=== PATIENT | female | born 1945 | race American Indian/Alaskan Native ===

== ENCOUNTER 2020-10-28 20:28 | Inpatient (IN) | payer MEDICARE ==
[2020-10-28] MEDS ORDERED: IPRATROPIUM 0.02% NEBU 2.5 ML IH ONE (23:33)
[2020-10-28] MEDS ORDERED: methylPREDNISolone Sod Succinate 125 MG/2 ML INJ IV ONE (23:33)
[2020-10-28] MEDS ORDERED: ALBUTEROL 2.5 MG/3 ML NEBU IH ONE (23:33)
[2020-10-28] MEDS ORDERED: ASPIRIN 325 MG TAB PO ONE (23:40)
--- NOTE | 2020-10-28 23:50 | XRay Report ---
CHEST 1 VIEW 10/28/2020 10:37 PM INDICATION / CLINICAL INFORMATION: sob. COMPARISON: 10/30/2017 FINDINGS: SUPPORT DEVICES: None. HEART / MEDIASTINUM: There is mild prominence of the cardiac silhouette LUNGS / PLEURA: There is increase in interstitial markings bilaterally with venous congestion. No pne umothorax. ADDITIONAL FINDINGS: No significant additional findings. IMPRESSION: 1. There is mild diffuse bilateral interstitial disease which may be chronic or may represent mild ed donald. There is mild venous congestion. Signer Name: Ernesto Jimenez MD Signed: 10/28/2020 11:46 PM Workstation Name: [id number]
[2020-10-28 23:54] LABS: Mean Corpuscular HGB Conc 25 % (30-34); Platelet Count 504 K/mm3 (140-440); Red Blood Count 2.59 M/mm3 (3.65-5.03)
[2020-10-29 00:04] LABS: Calcium 8.2 mg/dL (8.4-10.2)
[2020-10-29 00:12] LABS: Mean Corpuscular Volume 51 fl (79-97); Red Cell Distribution Width 24.5 % (13.2-15.2)
[2020-10-29 00:14] LABS: Hematocrit 13.2 % (30.3-42.9); Hemoglobin 3.2 gm/dl (10.1-14.3)
[2020-10-29 00:16] LABS: INR 1.34 (0.87-1.13)
[2020-10-29 00:17] LABS: Partial Thromboplastin Time 27.5 Sec. (24.2-36.6)
[2020-10-29] MEDS ORDERED: SODIUM CHLORIDE 0.9% 500 ML 500 ML IV ONE (00:17)
--- NOTE | 2020-10-29 00:45 | Emergency Department Report ---
ED Shortness of Breath HPI - General Chief Complaint: Dyspnea/Respdistress Stated Complaint: COPD Time Seen by Provider: 10/28/20 23:16 Source: EMS Mode of arrival: Stretcher Limitations: No Limitations - History of Present Illness Initial Comments: 75-year-old female with a past medical history of COPD on 2 to 3 L of home oxygen with previous intubation 2 years ago, multiple sclerosis, hypertension, elevated cholesterol presents to the hospital complaining of intermittent shortness of breath progressively worsening the last several weeks. Symptoms are especially worse with minimal exertion. Patient using bronchodilators intermittently with minimal and only temporary improvement. She denies fever, cough, chest pain, Covid exposure, calf tenderness, leg edema, history of PE/DVT. Patient does not have a primary fruit peeler. As per previous medical record review patient was medicated October 2017 with acute on chronic respiratory failure, severe anemia required several units of blood and had a GI work-up that included hiatal hernia, and small gastric ulceration, and a 5 mm AVM a duodenal bulb status post APC (argon plasma coagulation) treatment. - Related Data Home Medications Medication Instructions Recorded Confirmed Last Taken Citalopram Hydrobromide 40 mg PO DAILY 03/10/17 10/27/17 10/25/17 [Citalopram HBr] Gabapentin [Neurontin] 600 mg PO Q8H 03/10/17 10/27/17 10/25/17 Acetaminophen/Diphenhydramine 1 each PO DAILY 10/27/17 10/27/17 10/25/17 [Tylenol Pm Ex-Strength Caplet] Losartan [Cozaar] 50 mg PO QDAY 10/27/17 10/27/17 10/25/17 Pravastatin [Pravachol] 40 mg PO QHS 10/27/17 10/27/17 10/25/17 QUEtiapine [SEROquel] 100 mg PO HS 10/28/17 10/28/17 Unknown Previous Rx's Medication Instructions Recorded Last Taken Type ALPRAZolam [Xanax TAB] 0.5 mg PO BID PRN #10 tablet 11/02/17 Unknown Rx Albuterol Mdi (or & Nicu Only) 2 puff IH QID PRN #1 inhalation 11/02/17 Unknown Rx [ProAir HFA Inhaler] Azithromycin [Zithromax TAB] 500 mg PO QDAY #5 tablet 11/02/17 Unknown Rx Fluticasone/Salmeterol [Advair 1 puff IH BID #1 disk.w.dev 11/02/17 Unknown Rx Diskus 250-50 mcg] Metoprolol [Lopressor TAB] 12.5 mg PO BID #60 tablet 11/02/17 Unknown Rx Pantoprazole [Protonix TAB] 40 mg PO BID #60 tablet 11/02/17 Unknown Rx Prednisone [predniSONE 10 mg 10 mg PO .TAPER #1 tab.ds.pk 11/02/17 Unknown Rx (6-Day Pack, 21 Tabs)] Allergies Allergy/AdvReac Type Severity Reaction Status Date / Time No Known Allergies Allergy Verified 12/10/14 15:18 ED Review of Systems ROS: Stated complaint: COPD Other details as noted in HPI Comment: All other systems reviewed and negative ED Past Medical Hx - Past Medical History Hx Hypertension: Yes Hx CVA: Yes Hx Heart Attack/AMI: Yes Hx Congestive Heart Failure: No Hx Diabetes: No Hx Arthritis: Yes (hands, back) Hx Headaches / Migraines: Yes Hx COPD: Yes (admitted with exacerbation) Hx HIV: No Additional medical history: Multiple sclerosis. 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 Gastric ulcer. Duodenum AVM - Social History Smoking Status: Never Smoker Substance Use Type: None - Medications Home Medications: Home Medications Medication Instructions Recorded Confirmed Last Taken Type Citalopram Hydrobromide 40 mg PO DAILY 03/10/17 10/27/17 10/25/17 History [Citalopram HBr] Gabapentin [Neurontin] 600 mg PO Q8H 03/10/17 10/27/17 10/25/17 History Acetaminophen/Diphenhydramine 1 each PO DAILY 10/27/17 10/27/17 10/25/17 History [Tylenol Pm Ex-Strength Caplet] Losartan [Cozaar] 50 mg PO QDAY 10/27/17 10/27/17 10/25/17 History Pravastatin [Pravachol] 40 mg PO QHS 10/27/17 10/27/17 10/25/17 History QUEtiapine [SEROquel] 100 mg PO HS 10/28/17 10/28/17 Unknown History ALPRAZolam [Xanax TAB] 0.5 mg PO BID PRN #10 tablet 11/02/17 Unknown Rx Albuterol Mdi (or & Nicu Only) 2 puff IH QID PRN #1 inhalation 11/02/17 Unknown Rx [ProAir HFA Inhaler] Azithromycin [Zithromax TAB] 500 mg PO QDAY #5 tablet 11/02/17 Unknown Rx Fluticasone/Salmeterol [Advair 1 puff IH BID #1 disk.w.dev 11/02/17 Unknown Rx Diskus 250-50 mcg] Metoprolol [Lopressor TAB] 12.5 mg PO BID #60 tablet 11/02/17 Unknown Rx Pantoprazole [Protonix TAB] 40 mg PO BID #60 tablet 11/02/17 Unknown Rx Prednisone [predniSONE 10 mg 10 mg PO .TAPER #1 tab.ds.pk 11/02/17 Unknown Rx (6-Day Pack, 21 Tabs)] ED Physical Exam - General Limitations: No Limitations - Other Other exam information: General: No acute distress Head: Atraumatic Eyes: normal appearance Neck: Normal appearance, no midline tenderness Chest: Tachypnea, breath sounds clear without wheezing, rhonchus, or rales. Increased respiratory rate with minimal activity CV: Tachycardia, regular rate and rhythm. Increased heart rate with minimal activity Abdomen: Soft, normal bowel sounds, nontender, nondistended, no rebound or guarding Rectal: Guaiac negative brown stool Back: Normal inspection Extremity: Normal inspection, full range of motion Neuro: Alert O x 3, no facial asymmetry, speech clear, no gross motor sensory deficit Psych: Appropriate behavior Skin: No rash ED Course Vital Signs 10/28/20 10/28/20 10/28/20 23:09 23:39 23:55 Temperature 98.2 F Pulse Rate 118 H 107 H Respiratory 24 25 H Rate Blood Pressure Blood Pressure 134/52 [Right] O2 Sat by Pulse 99 98 100 Oximetry 10/29/20 10/29/20 10/29/20 00:15 02:15 02:30 Temperature 98.7 F 97.4 F L 98.5 F Pulse Rate 94 H 102 H 104 H Respiratory 18 16 20 Rate Blood Pressure 129/50 122/51 131/70 Blood Pressure [Right] O2 Sat by Pulse 99 100 100 Oximetry 10/29/20 10/29/20 10/29/20 03:00 03:30 04:00 Temperature 98.5 F 98.5 F 97.6 F Pulse Rate 106 H 109 H 107 H Respiratory 26 H 26 H 18 Rate Blood Pressure 138/63 Blood Pressure 146/69 145/89 [Right] O2 Sat by Pulse 100 100 100 Oximetry 10/29/20 10/29/20 10/29/20 04:45 05:00 05:45 Temperature 98.2 F 97.6 F 98.2 F Pulse Rate 103 H 101 H 103 H Respiratory 24 17 24 Rate Blood Pressure 146/68 Blood Pressure 123/48 146/68 [Right] O2 Sat by Pulse 100 100 100 Oximetry 10/29/20 10/29/20 10/29/20 06:00 06:30 07:00 Temperature 98.5 F Pulse Rate 104 H 106 H 112 H Respiratory 20 22 29 H Rate Blood Pressure 137/69 152/63 175/85 Blood Pressure [Right] O2 Sat by Pulse 99 99 96 Oximetry 10/29/20 10/29/20 10/29/20 07:30 08:00 08:15 Temperature 98.5 F 99.0 F 98.5 F Pulse Rate 110 H 114 H 112 H Respiratory 20 24 19 Rate Blood Pressure 161/72 176/85 Blood Pressure 175/85 [Right] O2 Sat by Pulse 99 91 98 Oximetry 10/29/20 10/29/20 10/29/20 08:26 08:30 09:18 Temperature 98.1 F Pulse Rate 112 H 102 H 126 H Respiratory 24 18 Rate Blood Pressure 127/48 156/66 Blood Pressure [Right] O2 Sat by Pulse 100 100 95 Oximetry 10/29/20 10/29/20 10/29/20 10:56 11:46 11:50 Temperature Pulse Rate 109 H 115 H 115 H Respiratory 18 25 H 16 Rate Blood Pressure Blood Pressure 120/58 [Right] O2 Sat by Pulse 95 98 100 Oximetry 10/29/20 12:00 Temperature Pulse Rate 107 H Respiratory 12 Rate Blood Pressure 129/51 Blood Pressure [Right] O2 Sat by Pulse 99 Oximetry - Reevaluation(s) Reevaluation #1: 10/28/20 23:45 I was informed by nurse that patient developed some increased respiratory distress but still satting 100% on 3 L nasal cannula oxygen. I instructed RN to provide nebs that have been previously ordered and awaiting respiratory the rapist administration. I went to the bedside to reassess patient and she remains with obvious respiratory distress with tachypnea and wheezing. Nebulized albuterol and Atrovent provided with stat BiPAP requested from respiratory therapist 10/29/20 00:53 Patient looks much more comfortable and reports feeling much better while on BiPAP. She also completed ordered bronchodilators and received Solu-Medrol as ordered. I attempted to call daughter/caregiver Toma Joyce, with an update patient status and plan for admission and blood transfusion however, no answer at this time ED Medical Decision Making - Lab Data Result diagrams: 11/01/20 14:54 11/01/20 14:54 Lab Results 10/28/20 10/28/20 10/28/20 Range/Units 23:25 23:25 23:25 WBC 13.2 H (4.5-11.0) K/mm3 RBC 2.59 L (3.65-5.03) M/mm3 Hgb 3.2 L* (10.1-14.3) gm/dl Hct 13.2 L* (30.3-42.9) % MCV 51 L (79-97) fl MCH 12 L (28-32) pg MCHC 25 L (30-34) % RDW 24.5 H (13.2-15.2) % Plt Count 504 H (140-440) K/mm3 Seg Neutrophils % Electrical Installation Inspector PT 16.6 H (12.2-14.9) Sec. INR 1.34 H (0.87-1.13) APTT 27.5 (24.2-36.6) Sec. D-Dimer 798.02 H (0-234) ng/mlDDU Sodium 138 (137-145) mmol/L Potassium 5.2 H (3.6-5.0) mmol/L Chloride 106.1 (98-107) mmol/L Carbon Dioxide 17 L (22-30) mmol/L Anion Gap 20 mmol/L BUN 30 H (7-17) mg/dL Creatinine 1.4 H (0.6-1.2) mg/dL Estimated GFR 44 ml/min BUN/Creatinine Ratio 21 % Glucose 313 H (65-100) mg/dL Calcium 8.2 L (8.4-10.2) mg/dL Troponin T (0.00-0.029) ng/mL NT-Pro-B Natriuret Pep 1685 H (0-900) pg/mL Blood Type Crossmatch 10/28/20 10/29/20 Range/Units 23:36 00:20 WBC (4.5-11.0) K/mm3 RBC (3.65-5.03) M/mm3 Hgb (10.1-14.3) gm/dl Hct (30.3-42.9) % MCV (79-97) fl MCH (28-32) pg MCHC (30-34) % RDW (13.2-15.2) % Plt Count (140-440) K/mm3 Seg Neutrophils % PT (12.2-14.9) Sec. INR (0.87-1.13) APTT (24.2-36.6) Sec. D-Dimer (0-234) ng/mlDDU Sodium (137-145) mmol/L Potassium (3.6-5.0) mmol/L Chloride (98-107) mmol/L Carbon Dioxide (22-30) mmol/L Anion Gap mmol/L BUN (7-17) mg/dL Creatinine (0.6-1.2) mg/dL Estimated GFR ml/min BUN/Creatinine Ratio % Glucose (65-100) mg/dL Calcium (8.4-10.2) mg/dL Troponin T < 0.010 (0.00-0.029) ng/mL NT-Pro-B Natriuret Pep (0-900) pg/mL Blood Type O POSITIVE Crossmatch See Detail - EKG Data -: EKG Interpreted by Ia EKG shows normal: sinus rhythm, ST-T waves (Inferior anterolateral ST depressions) Rate: normal - EKG Data When compared to previous EKG there are: no significant change - Radiology Data Radiology results: report reviewed CHEST 1 VIEW 10/28/2020 10:37 PM INDICATION / CLINICAL INFORMATION: sob. COMPARISON: 10/30/2017 FINDINGS: SUPPORT DEVICES: None. HEART / MEDIASTINUM: There is mild prominence of the cardiac silhouette LUNGS / PLEURA: There is increase in interstitial markings bilaterally with venous congestion. No pneumothorax. ADDITIONAL FINDINGS: No significant additional findings. IMPRESSION: 1. There is mild diffuse bilateral interstitial disease which may be chronic or may represent mild edema. There is mild venous congestion. - Medical Decision Making 75-year-old female presents to the hospital progressively worsening dyspnea worse with exertion for the last several weeks. Although breath sounds were clear on auscultation here patient did develop acute respiratory distress with tachypnea and wheezing. Patient required BiPAP support for increased work of breathing. Labs reveal significant anemia with history of previous AVM requiring treatment as well as gastric ulcer. IV Protonix provided empirically. Guaiac negative brown stool obtained via rectal exam here in the ED. 2 units of PRBCs ordered in the ED patient does have elevated D-dimer and therefore CT angiogram ordered. EKG shows diffuse ST depressions which appear chronic compared to previous. Troponin negative and patient denies chest pain. Patient will require admission to the hospitalist service presence of call daughter to provide update however, no answer during my attempt GI consult with Dr. Tate ordered given patient's previous history other no signs of active GI bleed at this time Discussed with hospitalist RAMON Robins and IMCU orders placed Critical Care Time: Yes Critical care time in (mins) excluding proc time.: 40 Critical care attestation.: If time is entered above; I have spent that time in minutes in the direct care of this critically ill patient, excluding procedure time. ED Disposition Clinical Impression: Acute and chronic respiratory failure, Severe anemia, History of arteriovenous malformation (AVM), History of gastric ulcer, COPD with acute exacerbation Disposition: OP ADMIT IP TO THIS HOSP Is pt being admited?: Yes Condition: Critical Time of Disposition: 01:11 (Julienne/hospitalist Dr Pryor)
[2020-10-29] MEDS ORDERED: PANTOPRAZOLE 40 MG INJ IV ONE (00:57)
[2020-10-29] MEDS ORDERED: ALBUTEROL 8.5 GM MDI INHALATION IH PRN (01:27)
[2020-10-29] MEDS ORDERED: NON-FORMULARY EACH (Prednisone [Prednisone 10 Mg (6-Day Pack, 21 Tabs)] 10 MG Tab.Ds.Pk) PO SCH (01:30)
--- NOTE | 2020-10-29 01:37 | History and Physical Report ---
History of Present Illness Date of examination: 10/29/20 Chief complaint: Shortness of breath History of present illness: 75-year-old female with a past medical history of COPD on 3 L of home oxygen , multiple sclerosis, hypertension, elevated cholesterol was brought to the to the hospital complaining of intermittent shortness of breath progressively worsening the last several weeks. Symptoms are especially worse with minimal exertion. Patient using bronchodilators intermittently with minimal and only temporary improvement. patient was admitted October 2017 with acute on chronic r espiratory failure, severe anemia required several units of blood and had a GI work-up that included hiatal hernia, and small gastric ulceration, and a 5 mm AVM a duodenal bulb status post APC (argon plasma coagulation) treatment. Patient denied any rectal bleeding. In the emergency room patient hemoglobin is 3.1 hematocrit 13.2. Past History Past Medical History: COPD, hypertension Medications and Allergies Allergies Allergy/AdvReac Type Severity Reaction Status Date / Time No Known Allergies Allergy Verified 12/10/14 15:18 Home Medications Medication Instructions Recorded Confirmed Last Taken Type Citalopram Hydrobromide 40 mg PO DAILY 03/10/17 10/27/17 10/25/17 History [Citalopram HBr] Gabapentin [Neurontin] 600 mg PO Q8H 03/10/17 10/27/17 10/25/17 History Acetaminophen/Diphenhydramine 1 each PO DAILY 10/27/17 10/27/17 10/25/17 History [Tylenol Pm Ex-Strength Caplet] Losartan [Cozaar] 50 mg PO QDAY 10/27/17 10/27/17 10/25/17 History Pravastatin [Pravachol] 40 mg PO QHS 10/27/17 10/27/17 10/25/17 History QUEtiapine [SEROquel] 100 mg PO HS 10/28/17 10/28/17 Unknown History ALPRAZolam [Xanax TAB] 0.5 mg PO BID PRN #10 tablet 11/02/17 Unknown Rx Albuterol Mdi (or & Nicu Only) 2 puff IH QID PRN #1 inhalation 11/02/17 Unknown Rx [ProAir HFA Inhaler] Azithromycin [Zithromax TAB] 500 mg PO QDAY #5 tablet 11/02/17 Unknown Rx Fluticasone/Salmeterol [Advair 1 puff IH BID #1 disk.w.dev 11/02/17 Unknown Rx Diskus 250-50 mcg] Metoprolol [Lopressor TAB] 12.5 mg PO BID #60 tablet 11/02/17 Unknown Rx Pantoprazole [Protonix TAB] 40 mg PO BID #60 tablet 11/02/17 Unknown Rx Prednisone [predniSONE 10 mg 10 mg PO .TAPER #1 tab.ds.pk 11/02/17 Unknown Rx (6-Day Pack, 21 Tabs)] Active Meds: Active Medications Albuterol (Albuterol 8.5 Gm Mdi Inhalation) 2 puff IH QID PRN PRN Reason: Shortness Of Breath Albuterol/Ipratropium (Ipratropium/Albuterol Sulfate 3 Ml Ampul.Neb) 1 ampul IH Q6HRT AMNA Alprazolam (Alprazolam 0.5 Mg Tab) 0.5 mg PO BID PRN PRN Reason: Anxiety Azithromycin (Azithromycin 250 Mg Tab) 500 mg PO QDAY ANMA; Protocol Dextrose/Sodium Chloride (D5/0.45ns) 1,000 mls @ 100 mls/hr IV DIRECT AMNA Losartan Potassium (Losartan 50 Mg Tab) 50 mg PO QDAY AMNA Metoprolol Tartrate (Metoprolol Tartrate 25 Mg Tab) 12.5 mg PO BID AMNA Miscellaneous Medication (Citalopram Hydrobromide [Citalopram Hbr]) 40 mg PO DAILY AMNA Miscellaneous Medication (Fluticasone/Salmeterol [Advair Diskus 250-50 Mcg]) 1 puff IH BID AMNA Miscellaneous Medication (Prednisone [Prednisone 10 Mg (6-Day Pack, 21 Tabs)]) 10 mg PO .TAPER AMNA Pantoprazole Sodium (Pantoprazole 40 Mg Inj) 40 mg IV Q12H AMNA Pravastatin Sodium (Pravastatin 40 Mg Tab) 40 mg PO QHS AMNA Sodium Chloride (Sodium Chloride 0.9% 10 Ml Flush Syringe) 10 ml IV BID AMNA Sodium Chloride (Sodium Chloride 0.9% 10 Ml Flush Syringe) 10 ml IV PRN PRN PRN Reason: LINE FLUSH Review of Systems Constitutional: fatigue, weakness Cardiovascular: shortness of breath Respiratory: shortness of breath, dyspnea on exertion Exam - Constitutional Vitals: Temp Pulse Resp BP Pulse Ox 98.2 F 107 H 25 H 134/52 100 10/28/20 23:09 10/28/20 23:55 10/28/20 23:55 10/28/20 23:09 10/28/20 23:55 General appearance: Present: mild distress - EENT Eyes: Present: PERRL ENT: hearing intact, clear oral mucosa - Neck Neck: Present: supple, normal ROM - Respiratory Respiratory effort: normal Respiratory: bilateral: CTA - Cardiovascular Heart Sounds: Present: S1 & S2. Absent: rub, click - Extremities Extremities: pulses symmetrical, No edema Peripheral Pulses: within normal limits - Abdominal General gastrointestinal: Present: soft, non-tender, non-distended, normal bowel sounds Female genitourinary: Present: normal - Integumentary Integumentary: Present: clear, warm, dry HEART Score - HEART Score Troponin: Troponin T < 0.010 ng/mL (0.00-0.029) 10/28/20 23:36 Results - Labs CBC & Chem 7: 10/28/20 23:25 10/28/20 23:25 Labs: Laboratory Last Values WBC 13.2 K/mm3 (4.5-11.0) H 10/28/20 23:25 RBC 2.59 M/mm3 (3.65-5.03) L 10/28/20 23:25 Hgb 3.2 gm/dl (10.1-14.3) L* 10/28/20 23:25 Hct 13.2 % (30.3-42.9) L* 10/28/20 23:25 MCV 51 fl (79-97) L 10/28/20 23:25 MCH 12 pg (28-32) L 10/28/20 23:25 MCHC 25 % (30-34) L 10/28/20 23:25 RDW 24.5 % (13.2-15.2) H 10/28/20 23:25 Plt Count 504 K/mm3 (140-440) H 10/28/20 23:25 Seg Neutrophils % Document Reviewer 10/28/20 23:25 PT 16.6 Sec. (12.2-14.9) H 10/28/20 23:25 INR 1.34 (0.87-1.13) H 10/28/20 23:25 APTT 27.5 Sec. (24.2-36.6) 10/28/20 23:25 D-Dimer 798.02 ng/mlDDU (0-234) H 10/28/20 23:25 Sodium 138 mmol/L (137-145) 10/28/20 23:25 Potassium 5.2 mmol/L (3.6-5.0) H 10/28/20 23:25 Chloride 106.1 mmol/L (98-107) 10/28/20 23:25 Carbon Dioxide 17 mmol/L (22-30) L 10/28/20 23:25 Anion Gap 20 mmol/L 10/28/20 23:25 BUN 30 mg/dL (7-17) H 10/28/20 23:25 Creatinine 1.4 mg/dL (0.6-1.2) H 10/28/20 23:25 Estimated GFR 44 ml/min 10/28/20 23:25 BUN/Creatinine Ratio 21 % 10/28/20 23:25 Glucose 313 mg/dL (65-100) H 10/28/20 23:25 Calcium 8.2 mg/dL (8.4-10.2) L 10/28/20 23:25 Troponin T < 0.010 ng/mL (0.00-0.029) 10/28/20 23:36 NT-Pro-B Natriuret Pep 1685 pg/mL (0-900) H 10/28/20 23:25 Blood Type O POSITIVE 10/29/20 00:20 Antibody Screen Negative 10/29/20 00:20 Crossmatch See Detail 10/29/20 00:20 Microbiology: Microbiology 10/29/20 00:40 Stool Stool Occult Blood (ADELAIDE) - Final Franklin/IV: IV Catheter Type [Right INT / Saline Lock Antecubital] Assessment and Plan - Patient Problems (1) Severe anemia Current Visit: Yes Status: Acute Plan to address problem: Admit the patient to the intermediate critical care. Nothing by mouth. D5 cabrera lf-normal saline at the rate of 100 cc/h. Protonix 40 mg IV every 12 hours. Patient is getting 2 unit of packed red blood cell. Reconsult GI for further evaluation and treatment. Recheck CBC BMP in the morning. SCD for DVT prophylaxis and Protonix for GI prophylaxis (2) History of arteriovenous malformation (AVM) Current Visit: Yes Status: Acute Plan to address problem: Admit the patient to the intermediate critical care. Nothing by mouth. D5 half-normal saline at the rate of 100 cc/h. Protonix 40 mg IV every 12 hours. Patient is getting 2 unit of packed red blood cell. Reconsult GI for further evaluation and treatment. Recheck CBC BMP in the morning. SCD for DVT prophylaxis and Protonix for GI prophylaxis (3) Acute and chronic respiratory failure Current Visit: Yes Status: Acute Plan to address problem: DuoNeb nebulizer every 4 hours as needed. Patient is on BiPAP. We continue the home medication. If needed will consult pulmonary in the morning.
[2020-10-29] MEDS: PANTOPRAZOLE 40 MG INJ IV SCH ×2 (01:55→16:59)
[2020-10-29] MEDS ORDERED: D5W/0.45% NACL 1,000 ML IV SCH (02:00)
[2020-10-29] MEDS: LORazepam 2 MG/ML VIAL IV PRN (03:43)
[2020-10-29] MEDS ORDERED: LORazepam 2 MG/ML VIAL ONE (03:43)
[2020-10-29] MEDS ORDERED: diphenhydrAMINE 50 MG/ML VIAL IV ONE ×2 (03:49→20:54)
[2020-10-29] MEDS ORDERED: FUROSEMIDE 40 MG/4 ML INJ IV ONE ×2 (03:54→09:00)
[2020-10-29] MEDS ORDERED: LORazepam 2 MG/ML VIAL IV ONE ×2 (04:00→09:55)
[2020-10-29 04:20] LABS: Total Cells Counted 100
[2020-10-29 04:21] LABS: Anisocytosis 2+; Hypochromasia 3+; Platelet Estimate Consistent w Auto
[2020-10-29] MEDS ORDERED: SODIUM BICARB 8.4% 50 MEQ/50 ML SYRINGE IV ONE ×3 (04:56→06:00)
[2020-10-29] MEDS: IPRATROPIUM/ALBUTEROL SULFATE 3 ML AMPUL.NEB IH SCH ×4 (06:47→23:39)
[2020-10-29] MEDS ORDERED: ETOMIDATE 20 MG/10 ML INJ IV ONE (08:41)
[2020-10-29] MEDS ORDERED: SUCCINYLCHOLINE CHLORIDE 200 MG/10 ML INJ MDV ONE (08:41)
[2020-10-29] MEDS ORDERED: LIP THERAPY VASELINE TP PRN (09:02)
[2020-10-29] MEDS ORDERED: MINERAL OIL/PETROLATUM, WHITE OPHTH OINT 3.5 GM OU PRN (09:02)
--- NOTE | 2020-10-29 09:51 | Event Note ---
Date: 10/29/20 Called to bedside secondary to altered mental status and worsening respiratory failure despite BiPAP. Initial ABG shows normal CO2, acidosis, hyp eroxygenation. Patient intermittently tracking with eyes, unable to respond appropriately to verbal questioning, moving erratically in hospital stretcher. Decision made to intubate patient. Patient treated with etomidate 20 mg IV x1, succinylcholine 100 mg IV x1. Using glide scope, 7.5 ET tube inserted with direct cord visualization, breath sounds normal, absence of gastric breath sounds, color change noted. Chest x-ray: ET tube in place as read by me.
[2020-10-29] MEDS ORDERED: NON-FORMULARY EACH (Fluticasone/Salmeterol [Advair Diskus 250-50 Mcg] 1 EACH Blst.W.Dev) IH SCH (10:00)
--- NOTE | 2020-10-29 10:33 | XRay Report ---
CHEST 1 VIEW INDICATION: ETT placement. COMPARISON: Yesterday FINDINGS: SUPPORT DEVICES: Endotracheal tube tip just below the level of clavicles in satisfactory position. HEART: Within normal limits. LUNGS/PLEURA: Diffuse interstitial disease again noted with development of patchy right greater than left basilar airspace disease. ADDITIONAL FINDINGS: None. IMPRESSION: 1. Satisfactory positioning of the endotracheal tube. 2. Worsened lung findings. Signer Name: Jermain Del Rio MD Signed: 10/29/2020 10:29 AM Workstation Name: [id number]
[2020-10-29 11:01] LABS: ABG Base Excess -2.7 mmol/L (-2.0-3.0); ABG HCO3 22.9 mmol/L (20.0-26.0); ABG Methemoglobin 0.5 % (0.0-1.5); ABG Oxygen Saturation 93.8 % (95.0-99.0); ABG PCO2 43.7 mm Hg; ABG PH 7.336 pH Units (7.350-7.450)
[2020-10-29] MEDS: fentaNYL 100 MCG/2 ML INJ IV PRN ×2 (12:31→16:56)
[2020-10-29 12:37] LABS: Mean Corpuscular HGB Conc 28 % (30-34); Platelet Count 469 K/mm3 (140-440)
[2020-10-29 12:39] LABS: Hemoglobin 5.3 gm/dl (10.1-14.3); Mean Corpuscular Volume 59 fl (79-97)
[2020-10-29 13:13] LABS: Total Cells Counted 100
[2020-10-29] MEDS ORDERED: SODIUM CHLORIDE 0.9% 500 ML 500 ML IV NR (13:13)
[2020-10-29 13:15] LABS: Anisocytosis 3+; Hypochromasia 3+
[2020-10-29 13:16] LABS: Ovalocytes Few; Poikilocytosis 1+; Tear Drop Cells Few
[2020-10-29 13:17] LABS: Platelet Estimate Consistent w Auto; Smear for Schistocytes Rare
[2020-10-29 13:18] LABS: Schistocytes Rare
--- NOTE | 2020-10-29 13:28 | Event Note ---
Date: 10/29/20 Patient became confused following initial blood transfusion concerning for transfusion reaction. Work-up has been initiated. Chest x-ray obtained. Also respiratory rate deteriorated and patient required intubation. I also discussed with the daughter and updated her on the clinical condition at this time. Director Learning And Development consulted patient transferred to the ICU.
[2020-10-29] MEDS: INSULIN LISPRO 100 UNIT/ML SUB-Q SCH ×2 (13:55→18:49)
--- NOTE | 2020-10-29 16:29 | Hem/Onc Consultation ---
History of Present Illness - History of Present Illness heme data review consult to follow 75yo woman with h/o severe iron deficiency anemia (2018) known to have gastric AVM now eval for severe anemia Hgb 3-4 received RBC transfusion today-->had reaction-->now intubated DATA REVIEWED BELOW IMPRESSION: recent severe anemia due to iron deficiency and chronic bleeding she could also have iron malabsorption doubt heme malignancy doubt she has autoimmune hemolytic anemia transfusion-related SOB could have been TRALI or CHF RECOMMEND: steroid pulse for presumed transfusion reaction attempt more RBC transfusions for goal HCT 23 labs to include LDH and retic future lab testing may include SPEP Home Medications Medication Instructions Recorded Confirmed Last Taken Citalopram Hydrobromide 40 mg PO DAILY 03/10/17 10/27/17 10/25/17 [Citalopram HBr] Gabapentin [Neurontin] 600 mg PO Q8H 03/10/17 10/27/17 10/25/17 Acetaminophen/Diphenhydramine 1 each PO DAILY 10/27/17 10/27/17 10/25/17 [Tylenol Pm Ex-Strength Caplet] Losartan [Cozaar] 50 mg PO QDAY 10/27/17 10/27/17 10/25/17 Pravastatin [Pravachol] 40 mg PO QHS 10/27/17 10/27/17 10/25/17 QUEtiapine [SEROquel] 100 mg PO HS 10/28/17 10/28/17 Unknown Previous Rx's Medication Instructions Recorded Last Taken Type ALPRAZolam [Xanax TAB] 0.5 mg PO BID PRN #10 tablet 11/02/17 Unknown Rx Albuterol Mdi (or & Nicu Only) 2 puff IH QID PRN #1 inhalation 11/02/17 Unknown Rx [ProAir HFA Inhaler] Azithromycin [Zithromax TAB] 500 mg PO QDAY #5 tablet 11/02/17 Unknown Rx Fluticasone/Salmeterol [Advair 1 puff IH BID #1 disk.w.dev 11/02/17 Unknown Rx Diskus 250-50 mcg] Metoprolol [Lopressor TAB] 12.5 mg PO BID #60 tablet 11/02/17 Unknown Rx Pantoprazole [Protonix TAB] 40 mg PO BID #60 tablet 11/02/17 Unknown Rx Prednisone [predniSONE 10 mg 10 mg PO .TAPER #1 tab.ds.pk 11/02/17 Unknown Rx (6-Day Pack, 21 Tabs)] Laboratory Last Values WBC 11.8 K/mm3 (4.5-11.0) H 10/29/20 12:05 Hgb 5.3 gm/dl (10.1-14.3) L* 10/29/20 12:05 Hct 19.0 % (30.3-42.9) L* 10/29/20 12:05 MCV 59 fl (79-97) L 10/29/20 12:05 Plt Count 469 K/mm3 (140-440) H 10/29/20 12:05 PT 16.6 Sec. (12.2-14.9) H 10/28/20 23:25 INR 1.34 (0.87-1.13) H 10/28/20 23:25 APTT 27.5 Sec. (24.2-36.6) 10/28/20 23:25 Creatinine 1.4 mg/dL (0.6-1.2) H 10/28/20 23:25 Blood Type O POSITIVE 10/29/20 00:20 Antibody Screen Negative 10/29/20 00:20 Crossmatch See Detail 10/29/20 00:20 Pre-Trans BONI Negative 10/29/20 Unknown Pre-Trans BONI Poly Negative 10/29/20 Unknown Post-Trans Blood Type O positive 10/29/20 Unknown Post-Trans BONI Negative 10/29/20 Unknown Post-Trans BONI Poly Negative 10/29/20 Unknown Past History Past Medical History: COPD, hypertension Medications and Allergies Allergies Allergy/AdvReac Type Severity Reaction Status Date / Time No Known Allergies Allergy Verified 12/10/14 15:18 Home Medications Medication Instructions Recorded Confirmed Last Taken Type Citalopram Hydrobromide 40 mg PO DAILY 03/10/17 10/27/17 10/25/17 History [Citalopram HBr] Gabapentin [Neurontin] 600 mg PO Q8H 03/10/17 10/27/17 10/25/17 History Acetaminophen/Diphenhydramine 1 each PO DAILY 10/27/17 10/27/17 10/25/17 History [Tylenol Pm Ex-Strength Caplet] Losartan [Cozaar] 50 mg PO QDAY 10/27/17 10/27/1710/25/18 History Pravastatin [Pravachol] 40 mg PO QHS 10/27/17 10/27/17 10/25/17 History QUEtiapine [SEROquel] 100 mg PO HS 10/28/17 10/28/17 Unknown History ALPRAZolam [Xanax TAB] 0.5 mg PO BID PRN #10 tablet 11/02/17 Unknown Rx Albuterol Mdi (or & Nicu Only) 2 puff IH QID PRN #1 inhalation 11/02/17 Unknown Rx [ProAir HFA Inhaler] Azithromycin [Zithromax TAB] 500 mg PO QDAY #5 tablet 11/02/17 Unknown Rx Fluticasone/Salmeterol [Advair 1 puff IH BID #1 disk.w.dev 11/02/17 Unknown Rx Diskus 250-50 mcg] Metoprolol [Lopressor TAB] 12.5 mg PO BID #60 tablet 11/02/17 Unknown Rx Pantoprazole [Protonix TAB] 40 mg PO BID #60 tablet 11/02/17 Unknown Rx Prednisone [predniSONE 10 mg 10 mg PO .TAPER #1 tab.ds.pk 11/02/17 Unknown Rx (6-Day Pack, 21 Tabs)] Active Meds: Active Medications Albuterol (Albuterol 8.5 Gm Mdi Inhalation) 2 puff IH QID PRN PRN Reason: Shortness Of Breath Albuterol/Ipratropium (Ipratropium/Albuterol Sulfate 3 Ml Ampul.Neb) 1 ampul IH Q6HRT [facility] Last Admin: 10/29/20 14:15 Dose: Not Given Documented by: Alprazolam (Alprazolam 0.5 Mg Tab) 0.5 mg PO BID PRN PRN Reason: Anxiety Arformoterol Tartrate (Arformoterol 15 Mcg/2 Ml Nebu) 15 mcg IH Q12HRT [facility] Azithromycin (Azithromycin 250 Mg Tab) 500 mg PO QDAY [facility]; Protocol Stop: 11/02/20 10:01 Budesonide (Budesonide 0.5 Mg/2 Ml Nebu) 0.5 mg IH BIDRT [facility] Citalopram Hydrobromide (Citalopram 20 Mg Tab) 40 mg PO DAILY [facility] Fentanyl (Fentanyl 100 Mcg/2 Ml Inj) 50 mcg IV Q2H PRN PRN Reason: Pain, Mild (1-3) Last Admin: 10/29/20 12:31 Dose: 50 mcg Documented by: Hydrophilic Ointment (Lip Therapy Vaseline) 1 applic TP Q2HR PRN PRN Reason: Dry Lips Dextrose/Sodium Chloride (D5/0.45ns) 1,000 mls @ 100 mls/hr IV DIRECT [facility] Propofol (Diprivan 10 Mg/Ml) 1,000 mg in 100 mls @ 2.994 mls/hr IV TITR [facility]; Protocol Last Admin: 10/29/20 13:47 Dose: 40 mcg/kg/min, 23.952 mls/hr Documented by: Sodium Chloride (Nacl 0.9% 500 Ml) 500 mls @ 0 mls/hr IV ONCE NR Stop: 10/29/20 23:59 Insulin Human Lispro (Insulin Lispro 100 Unit/Ml) 0 unit SUB-Q Q6HR [facility]; Protocol Last Admin: 10/29/20 13:55 Dose: 6 unit Documented by: Lorazepam (Lorazepam 2 Mg/Ml Vial) 1 mg IV Q4H PRN PRN Reason: Agitation Last Admin: 10/29/20 03:43 Dose: 1 mg Documented by: Losartan Potassium (Losartan 50 Mg Tab) 50 mg PO QDAY [facility] Metoprolol Tartrate (Metoprolol Tartrate 25 Mg Tab) 12.5 mg PO BID [facility] Multi-Ingred Cream/Lotion/Oil/Oint (Mineral Oil/Petrolatum, White Ophth Oint 3.5 Gm) 1 applic OU Q4HR PRN PRN Reason: Dry Eye(s) Pantoprazole Sodium (Pantoprazole 40 Mg Inj) 40 mg IV BID@0600,1800 [facility] Last Admin: 10/29/20 01:55 Dose: 40 mg Documented by: Pravastatin Sodium (Pravastatin 40 Mg Tab) 40 mg PO QHS [facility] Sodium Chloride (Sodium Chloride 0.9% 10 Ml Flush Syringe) 10 ml IV BID [facility] Sodium Chloride (Sodium Chloride 0.9% 10 Ml Flush Syringe) 10 ml IV PRN PRN PRN Reason: LINE FLUSH Exam - Constitutional Vitals: Last Vital Signs Temp 98.5 F 10/29/20 08:15 Pulse 99 H 10/29/20 15:40 Resp 15 10/29/20 15:30 BP 109/50 10/29/20 15:40 Pulse Ox 100 10/29/20 15:40 Results - Labs lab Results: Laboratory Results - last 24 hr 10/28/20 10/28/20 10/28/20 23:25 23:25 23:25 WBC 13.2 H RBC 2.59 L Hgb 3.2 L* Hct 13.2 L* MCV 51 L MCH 12 L MCHC 25 L RDW 24.5 H Plt Count 504 H Add Manual Diff Complete Total Counted 100 Seg Neutrophils % Bariatric Program Coordinator Seg Neuts % (Manual) 96.0 H Lymphocytes % (Manual) 2.0 L Monocytes % (Manual) 2.0 Nucleated RBC % Not Reportable Seg Neutrophils # Man 12.7 H Band Neutrophils # 0.0 Lymphocytes # (Manual) 0.3 L Abs React Lymphs (Man) 0.0 Monocytes # (Manual) 0.3 Eosinophils # (Manual) 0.0 Basophils # (Manual) 0.0 Metamyelocytes # 0.0 Myelocytes # 0.0 Promyelocytes # 0.0 Blast Cells # 0.0 WBC Morphology Not Reportable Hypersegmented Neuts Not Reportable Hyposegmented Neuts Not Reportable Hypogranular Neuts Not Reportable Smudge Cells Not Reportable Toxic Granulation Not Reportable Toxic Vacuolation Not Reportable Dohle Bodies Not Reportable Pelger-Huet Anomaly Not Reportable Cindy Rods Not Reportable Platelet Estimate Consistent w auto Clumped Platelets Not Reportable Plt Clumps, EDTA Not Reportable Large Platelets Not Reportable Giant Platelets Not Reportable Platelet Satelliting Not Reportable Plt Morphology Comment Not Reportable RBC Morphology Not Reportable Dimorphic RBCs Not Reportable Polychromasia Not Reportable Hypochromasia 3+ Poikilocytosis Not Reportable Anisocytosis 2+ Microcytosis 3+ Macrocytosis Not Reportable Spherocytes Not Reportable Pappenheimer Bodies Not Reportable Sickle Cells Not Reportable Target Cells Not Reportable Tear Drop Cells Not Reportable Ovalocytes Not Reportable Helmet Cells Not Reportable [place] Bodies Not Reportable [place] Rings Not Reportable [place] Cells Not Reportable Bite Cells Not Reportable Crenated Cell Not Reportable Elliptocytes Not Reportable Acanthocytes (Spur) Not Reportable Rouleaux Not Reportable Hemoglobin C Crystals Not Reportable Schistocytes Not Reportable Malaria parasites Not Reportable Magdiel Bodies Not Reportable Hem Pathologist Commnt No PT 16.6 H INR 1.34 H APTT 27.5 D-Dimer 798.02 H ABG pH POC ABG pCO2 ABG pCO2 POC ABG pO2 ABG pO2 POC ABG HCO3 ABG HCO3 ABG O2 Saturation ABG O2 Content POC ABG Base Excess ABG Base Excess ABG Hemoglobin ABG Oxyhemoglobin ABG Carboxyhemoglobin ABG Methemoglobin ABG Sodium ABG Potassium ABG Chloride ABG Glucose Oxyhemoglobin Carboxyhemoglobin FiO2 Sodium 138 Potassium 5.2 H Chloride 106.1 Carbon Dioxide 17 L Anion Gap 20 BUN 30 H Creatinine 1.4 H Estimated GFR 44 BUN/Creatinine Ratio 21 Glucose 313 H POC Glucose Calcium 8.2 L Troponin T NT-Pro-B Natriuret Pep 1685 H Arterial Blood Glucose Arterial Blood Ionized Calcium Schistocytes Smear Blood Type Antibody Screen Crossmatch Pre-Trans BONI Pre-Trans BONI Poly Post-Trans Blood Type Post-Trans BONI Post-Trans BONI Poly 10/28/20 10/29/20 10/29/20 23:36 00:20 04:24 WBC RBC Hgb Hct MCV MCH MCHC RDW Plt Count Add Manual Diff Total Counted Seg Neutrophils % Seg Neuts % (Manual) Lymphocytes % (Manual) Monocytes % (Manual) Nucleated RBC % Seg Neutrophils # Man Band Neutrophils # Lymphocytes # (Manual) Abs React Lymphs (Man) Monocytes # (Manual) Eosinophils # (Manual) Basophils # (Manual) Metamyelocytes # Myelocytes # Promyelocytes # Blast Cells # WBC Morphology Hypersegmented Neuts Hyposegmented Neuts Hypogranular Neuts Smudge Cells Toxic Granulation Toxic Vacuolation Dohle Bodies Pelger-Huet Anomaly Cindy Rods Platelet Estimate Clumped Platelets Plt Clumps, EDTA Large Platelets Giant Platelets Platelet Satelliting Plt Morphology Comment RBC Morphology Dimorphic RBCs Polychromasia Hypochromasia Poikilocytosis Anisocytosis Microcytosis Macrocytosis Spherocytes Pappenheimer Bodies Sickle Cells Target Cells Tear Drop Cells Ovalocytes Helmet Cells [place] Bodies [place] Rings Quique Cells Bite Cells Crenated Cell Elliptocytes Acanthocytes (Spur) Rouleaux Hemoglobin C Crystals Schistocytes Malaria parasites Magdiel Bodies Hem Pathologist Commnt PT INR APTT D-Dimer ABG pH 7.208 L POC ABG pCO2 40.0 ABG pCO2 POC ABG pO2 249.6 H ABG pO2 POC ABG HCO3 15.6 ABG HCO3 ABG O2 Saturation ABG O2 Content POC ABG Base Excess -11.2 ABG Base Excess ABG Hemoglobin 5 L ABG Oxyhemoglobin 97.8 ABG Carboxyhemoglobin ABG Methemoglobin 0.4 ABG Sodium 135.1 L ABG Potassium 5.4 H ABG Chloride 108.0 H ABG Glucose 413 H Oxyhemoglobin Carboxyhemoglobin 1.5 FiO2 100 Sodium Potassium Chloride Carbon Dioxide Anion Gap BUN Creatinine Estimated GFR BUN/Creatinine Ratio Glucose POC Glucose Calcium Troponin T < 0.010 NT-Pro-B Natriuret Pep Arterial Blood Glucose 413 H Arterial Blood Ionized Calcium 4.5 L Schistocytes Smear Blood Type O POSITIVE Antibody Screen Negative Crossmatch See Detail Pre-Trans BONI Pre-Trans BONI Poly Post-Trans Blood Type Post-Trans BONI Post-Trans BONI Poly 10/29/20 10/29/20 10/29/20 08:41 10:35 12:05 WBC 11.8 H RBC 3.20 L Hgb 5.3 L* Hct 19.0 L* MCV 59 L MCH 17 L MCHC 28 L RDW 38.0 H Plt Count 469 H Add Manual Diff Complete Total Counted 100 Seg Neutrophils % Bariatric Program Coordinator Seg Neuts % (Manual) 93.0 H Lymphocytes % (Manual) 6.0 L Monocytes % (Manual) 1.0 Nucleated RBC % Not Reportable Seg Neutrophils # Man 11.0 H Band Neutrophils # 0.0 Lymphocytes # (Manual) 0.7 L Abs React Lymphs (Man) 0.0 Monocytes # (Manual) 0.1 Eosinophils # (Manual) 0.0 Basophils # (Manual) 0.0 Metamyelocytes # 0.0 Myelocytes # 0.0 Promyelocytes # 0.0 Blast Cells # 0.0 WBC Morphology Not Reportable Hypersegmented Neuts Not Reportable Hyposegmented Neuts Not Reportable Hypogranular Neuts Not Reportable Smudge Cells Not Reportable Toxic Granulation Not Reportable Toxic Vacuolation Not Reportable Dohle Bodies Not Reportable Pelger-Huet Anomaly Not Reportable Cindy Rods Not Reportable Platelet Estimate Consistent w auto Clumped Platelets Not Reportable Plt Clumps, EDTA Not Reportable Large Platelets Not Reportable Giant Platelets Not Reportable Platelet Satelliting Not Reportable Plt Morphology Comment Not Reportable RBC Morphology Not Reportable Dimorphic RBCs Not Reportable Polychromasia Rare Hypochromasia 3+ Poikilocytosis 1+ Anisocytosis 3+ Microcytosis 2+ Macrocytosis Not Reportable Spherocytes Not Reportable Pappenheimer Bodies Not Reportable Sickle Cells Not Reportable Target Cells Not Reportable Tear Drop Cells Few Ovalocytes Few Helmet Cells Not Reportable [place] Bodies Not Reportable [place] Rings Not Reportable Quique Cells Not Reportable Bite Cells Not Reportable Crenated Cell Not Reportable Elliptocytes Few Acanthocytes (Spur) Not Reportable Rouleaux Not Reportable Hemoglobin C Crystals Not Reportable Schistocytes Rare Malaria parasites Not Reportable Magdiel Bodies Not Reportable Hem Pathologist Commnt No PT INR APTT D-Dimer ABG pH 7.336 L POC ABG pCO2 ABG pCO2 43.7 POC ABG pO2 ABG pO2 68.0 L POC ABG HCO3 ABG HCO3 22.9 ABG O2 Saturation 93.8 L ABG O2 Content 7.8 POC ABG Base Excess ABG Base Excess -2.7 L ABG Hemoglobin 6.0 L ABG Oxyhemoglobin ABG Carboxyhemoglobin 2.0 ABG Methemoglobin 0.5 ABG Sodium ABG Potassium ABG Chloride ABG Glucose Oxyhemoglobin 91.4 L Carboxyhemoglobin FiO2 40 Sodium Potassium Chloride Carbon Dioxide Anion Gap BUN Creatinine Estimated GFR BUN/Creatinine Ratio Glucose POC Glucose 367 H Calcium Troponin T NT-Pro-B Natriuret Pep Arterial Blood Glucose Arterial Blood Ionized Calcium Schistocytes Smear Rare Blood Type Antibody Screen Crossmatch Pre-Trans BONI Pre-Trans BONI Poly Post-Trans Blood Type Post-Trans BONI Post-Trans BONI Poly 10/29/20 Unknown WBC RBC Hgb Hct MCV MCH MCHC RDW Plt Count Add Manual Diff Total Counted Seg Neutrophils % Seg Neuts % (Manual) Lymphocytes % (Manual) Monocytes % (Manual) Nucleated RBC % Seg Neutrophils # Man Band Neutrophils # Lymphocytes # (Manual) Abs React Lymphs (Man) Monocytes # (Manual) Eosinophils # (Manual) Basophils # (Manual) Metamyelocytes # Myelocytes # Promyelocytes # Blast Cells # WBC Morphology Hypersegmented Neuts Hyposegmented Neuts Hypogranular Neuts Smudge Cells Toxic Granulation Toxic Vacuolation Dohle Bodies Pelger-Huet Anomaly Cindy Rods Platelet Estimate Clumped Platelets Plt Clumps, EDTA Large Platelets Giant Platelets Platelet Satelliting Plt Morphology Comment RBC Morphology Dimorphic RBCs Polychromasia Hypochromasia Poikilocytosis Anisocytosis Microcytosis Macrocytosis Spherocytes Pappenheimer Bodies Sickle Cells Target Cells Tear Drop Cells Ovalocytes Helmet Cells [place] Bodies [place] Rings Quique Cells Bite Cells Crenated Cell Elliptocytes Acanthocytes (Spur) Rouleaux Hemoglobin C Crystals Schistocytes Malaria parasites Magdiel Bodies Hem Pathologist Commnt PT INR APTT D-Dimer ABG pH POC ABG pCO2 ABG pCO2 POC ABG pO2 ABG pO2 POC ABG HCO3 ABG HCO3 ABG O2 Saturation ABG O2 Content POC ABG Base Excess ABG Base Excess ABG Hemoglobin ABG Oxyhemoglobin ABG Carboxyhemoglobin ABG Methemoglobin ABG Sodium ABG Potassium ABG Chloride ABG Glucose Oxyhemoglobin Carboxyhemoglobin FiO2 Sodium Potassium Chloride Carbon Dioxide Anion Gap BUN Creatinine Estimated GFR BUN/Creatinine Ratio Glucose POC Glucose Calcium Troponin T NT-Pro-B Natriuret Pep Arterial Blood Glucose Arterial Blood Ionized Calcium Schistocytes Smear Blood Type Antibody Screen Crossmatch Pre-Trans BONI Negative Pre-Trans BONI Poly Negative Post-Trans Blood Type O positive Post-Trans BONI Negative Post-Trans BONI Poly Negative
[2020-10-29] MEDS: methylPREDNISolone Sod Succinate 125 MG/2 ML INJ IV SCH (16:57)
[2020-10-29] MEDS: BUDESONIDE 0.5 MG/2 ML NEBU IH SCH ×2 (19:56→23:38)
[2020-10-29] MEDS: ARFORMOTEROL 15 MCG/2 ML NEBU IH SCH ×2 (19:56→23:38)
--- NOTE | 2020-10-29 20:29 | XRay Report ---
ABDOMEN 1 VIEW INDICATION / CLINICAL INFORMATION: verify NGT placement. COMPARISON: One view of the chest from earlier today. CT abdomen and pelvis with contrast from 11/01/2017. FINDINGS: TUBES / LINES: An NG tube terminates over the gastric body. The ET tube is unchanged. A right arm PIC C terminates over the distal SVC. BOWEL GAS PATTERN: No significant abnormality. FREE AIR / EXTRALUMINAL GAS: None seen. ADDITIONAL FINDINGS: No significant additional findings/other significant interval changes. IMPRESSION: Satisfactory positioning of the NG tube. No acute abnormality. Signer Name: Дмитрий Valderrama MD Signed: 10/29/2020 8:25 PM Workstation Name: [id number]
[2020-10-29] MEDS: METOPROLOL TARTRATE 25 MG TAB PO SCH (22:10)
[2020-10-29] MEDS: PRAVASTATIN 40 MG TAB PO SCH (22:12)
[2020-10-30] MEDS: LORazepam 2 MG/ML VIAL IV PRN (01:05)
[2020-10-30] MEDS: INSULIN LISPRO 100 UNIT/ML SUB-Q SCH ×3 (05:22→18:19)
[2020-10-30] MEDS: PANTOPRAZOLE 40 MG INJ IV SCH ×2 (05:24→18:19)
[2020-10-30 06:35] LABS: Hematocrit 20.2 % (30.3-42.9); Mean Corpuscular HGB Conc 29 % (30-34); Platelet Count 414 K/mm3 (140-440); Red Blood Count 3.23 M/mm3 (3.65-5.03)
[2020-10-30 06:47] LABS: Hemoglobin 5.8 gm/dl (10.1-14.3); Mean Corpuscular Volume 63 fl (79-97)
[2020-10-30 06:50] LABS: BUN/Creatinine Ratio 28; Blood Urea Nitrogen 28 mg/dL (7-17); Calcium 8.1 mg/dL (8.4-10.2); Hemolysis Index 0
--- NOTE | 2020-10-30 07:24 | Hem/Onc Progress Note ---
Subjective Interval history: heme data review 75yo woman with h/o severe iron deficiency anemia (2018) known to have gastric AVM PMH COPD, home oxygen mention of multiple sclerosis now eval for SOB, found to have severe anemia Hgb 3-4 received RBC transfusion yesterday-->had reaction with worse SOB-->intubated CXR bilateral opacities including pacthy infiltrates has been improving on vent while receiving lasix and solumedrol received rbc overnight (her 3rd total unit) DATA REVIEWED BELOW IMPRESSION: recent severe anemia due to iron deficiency and chronic bleeding doubt heme malignancy doubt she has autoimmune hemolytic anemia transfusion-related SOB could have been TRALI or CHF tolerated 3rd unit RBC overnight, while on vent RECOMMEND: CXR to see her pulm edema status, consider more lasix continue steroid pulse for presumed transfusion reaction and COPD attempt more RBC transfusions for goal HCT 23 future lab testing may include SPEP Active Medications Azithromycin (Azithromycin 250 Mg Tab) 500 mg PO QDAY [facility]; Protocol Stop: 11/02/20 10:01 Fentanyl (Fentanyl 100 Mcg/2 Ml Inj) 50 mcg IV Q2H PRN PRN Reason: Pain, Mild (1-3) Last Admin: 10/29/20 16:56 Dose: 50 mcg Documented by: Losartan Potassium (Losartan 50 Mg Tab) 50 mg PO QDAY [facility] Methylprednisolone Sodium Succinate (Methylprednisolone Sod Succinate 125 Mg/2 Ml Inj) 80 mg IV Q8HR [facility] Metoprolol Tartrate (Metoprolol Tartrate 25 Mg Tab) 12.5 mg PO BID [facility] Last Admin: 10/29/20 22:10 Dose: 12.5 mg Documented by: Laboratory Last Values WBC 12.9 K/mm3 (4.5-11.0) H 10/30/20 06:13 Hgb 5.8 gm/dl (10.1-14.3) L* 10/30/20 06:13 Hct 20.2 % (30.3-42.9) L 10/30/20 06:13 MCV 63 fl (79-97) L 10/30/20 06:13 Plt Count 414 K/mm3 (140-440) 10/30/20 06:13 FiO2 40 10/30/20 04:36 Lactate Dehydrogenase 355 units/L (91-180) H 10/29/20 18:37 Antibody Screen Negative 10/29/20 00:20 Direct Antiglob Test Negative 10/29/20 18:37 BONI, Poly Interpret Negative 10/29/20 18:37 Crossmatch See Detail 10/29/20 00:20 Pre-Trans BONI Negative 10/29/20 Unknown Pre-Trans BONI Poly Negative 10/29/20 Unknown Post-Trans Blood Type O positive 10/29/20 Unknown Post-Trans BONI Negative 10/29/20 Unknown Post-Trans BONI Poly Negative 10/29/20 Unknown Objective - Constitutional Vitals: Last Vital Signs Temp 99.2 F 10/30/20 04:18 Pulse 97 H 10/30/20 06:31 Resp 18 10/30/20 06:31 BP 128/63 10/30/20 06:31 Pulse Ox 100 10/30/20 06:31 - Labs Lab Results: Laboratory Results - last 24 hr 10/29/20 10/29/20 10/29/20 00:20 08:41 10:35 WBC RBC Hgb Hct MCV MCH MCHC RDW Plt Count Add Manual Diff Total Counted Seg Neutrophils % Seg Neuts % (Manual) Lymphocytes % (Manual) Monocytes % (Manual) Nucleated RBC % Seg Neutrophils # Man Band Neutrophils # Lymphocytes # (Manual) Abs React Lymphs (Man) Monocytes # (Manual) Eosinophils # (Manual) Basophils # (Manual) Metamyelocytes # Myelocytes # Promyelocytes # Blast Cells # WBC Morphology Hypersegmented Neuts Hyposegmented Neuts Hypogranular Neuts Smudge Cells Toxic Granulation Toxic Vacuolation Dohle Bodies Pelger-Huet Anomaly Cindy Rods Platelet Estimate Clumped Platelets Plt Clumps, EDTA Large Platelets Giant Platelets Platelet Satelliting Plt Morphology Comment RBC Morphology Dimorphic RBCs Polychromasia Hypochromasia Poikilocytosis Anisocytosis Microcytosis Macrocytosis Spherocytes Pappenheimer Bodies Sickle Cells Target Cells Tear Drop Cells Ovalocytes Helmet Cells [place] Bodies [place] Rings [place] Cells Bite Cells Crenated Cell Elliptocytes Acanthocytes (Spur) Rouleaux Hemoglobin C Crystals Schistocytes Malaria parasites Percent Retic Magdiel Bodies Hem Pathologist Commnt ABG pH 7.336 L POC ABG pCO2 ABG pCO2 43.7 POC ABG pO2 ABG pO2 68.0 L POC ABG HCO3 ABG HCO3 22.9 ABG O2 Saturation 93.8 L ABG O2 Content 7.8 POC ABG Base Excess ABG Base Excess -2.7 L ABG Hemoglobin 6.0 L ABG Oxyhemoglobin ABG Carboxyhemoglobin 2.0 ABG Methemoglobin 0.5 ABG Sodium ABG Potassium ABG Chloride ABG Glucose Oxyhemoglobin 91.4 L Carboxyhemoglobin FiO2 40 Sodium Potassium Chloride Carbon Dioxide Anion Gap BUN Creatinine Estimated GFR BUN/Creatinine Ratio Glucose POC Glucose 367 H Calcium Lactate Dehydrogenase Arterial Blood Glucose Arterial Blood Ionized Calcium Schistocytes Smear Blood Type O POSITIVE Antibody Screen Negative Direct Antiglob Test BONI, Poly Interpret Crossmatch See Detail Pre-Trans BONI Pre-Trans BONI Poly Post-Trans Blood Type Post-Trans BONI Post-Trans BONI Poly 10/29/20 10/29/20 10/29/20 12:05 12:12 17:50 WBC 11.8 H RBC 3.20 L Hgb 5.3 L* Hct 19.0 L* MCV 59 L MCH 17 L MCHC 28 L RDW 38.0 H Plt Count 469 H Add Manual Diff Complete Total Counted 100 Seg Neutrophils % Com Writer Seg Neuts % (Manual) 93.0 H Lymphocytes % (Manual) 6.0 L Monocytes % (Manual) 1.0 Nucleated RBC % Not Reportable Seg Neutrophils # Man 11.0 H Band Neutrophils # 0.0 Lymphocytes # (Manual) 0.7 L Abs React Lymphs (Man) 0.0 Monocytes # (Manual) 0.1 Eosinophils # (Manual) 0.0 Basophils # (Manual) 0.0 Metamyelocytes # 0.0 Myelocytes # 0.0 Promyelocytes # 0.0 Blast Cells # 0.0 WBC Morphology Not Reportable Hypersegmented Neuts Not Reportable Hyposegmented Neuts Not Reportable Hypogranular Neuts Not Reportable Smudge Cells Not Reportable Toxic Granulation Not Reportable Toxic Vacuolation Not Reportable Dohle Bodies Not Reportable Pelger-Huet Anomaly Not Reportable Cindy Rods Not Reportable Platelet Estimate Consistent w auto Clumped Platelets Not Reportable Plt Clumps, EDTA Not Reportable Large Platelets Not Reportable Giant Platelets Not Reportable Platelet Satelliting Not Reportable Plt Morphology Comment Not Reportable RBC Morphology Not Reportable Dimorphic RBCs Not Reportable Polychromasia Rare Hypochromasia 3+ Poikilocytosis 1+ Anisocytosis 3+ Microcytosis 2+ Macrocytosis Not Reportable Spherocytes Not Reportable Pappenheimer Bodies Not Reportable Sickle Cells Not Reportable Target Cells Not Reportable Tear Drop Cells Few Ovalocytes Few Helmet Cells Not Reportable [place] Bodies Not Reportable [place] Rings Not Reportable [place] Cells Not Reportable Bite Cells Not Reportable Crenated Cell Not Reportable Elliptocytes Few Acanthocytes (Spur) Not Reportable Rouleaux Not Reportable Hemoglobin C Crystals Not Reportable Schistocytes Rare Malaria parasites Not Reportable Percent Retic Magdiel Bodies Not Reportable Hem Pathologist Commnt No ABG pH POC ABG pCO2 ABG pCO2 POC ABG pO2 ABG pO2 POC ABG HCO3 ABG HCO3 ABG O2 Saturation ABG O2 Content POC ABG Base Excess ABG Base Excess ABG Hemoglobin ABG Oxyhemoglobin ABG Carboxyhemoglobin ABG Methemoglobin ABG Sodium ABG Potassium ABG Chloride ABG Glucose Oxyhemoglobin Carboxyhemoglobin FiO2 Sodium Potassium Chloride Carbon Dioxide Anion Gap BUN Creatinine Estimated GFR BUN/Creatinine Ratio Glucose POC Glucose 313 H 201 H Calcium Lactate Dehydrogenase Arterial Blood Glucose Arterial Blood Ionized Calcium Schistocytes Smear Rare Blood Type Antibody Screen Direct Antiglob Test BONI, Poly Interpret Crossmatch Pre-Trans BONI Pre-Trans BONI Poly Post-Trans Blood Type Post-Trans BONI Post-Trans BONI Poly 10/29/20 10/29/20 10/29/20 18:37 18:37 18:37 WBC RBC Hgb Hct MCV MCH MCHC RDW Plt Count Add Manual Diff Total Counted Seg Neutrophils % Seg Neuts % (Manual) Lymphocytes % (Manual) Monocytes % (Manual) Nucleated RBC % Seg Neutrophils # Man Band Neutrophils # Lymphocytes # (Manual) Abs React Lymphs (Man) Monocytes # (Manual) Eosinophils # (Manual) Basophils # (Manual) Metamyelocytes # Myelocytes # Promyelocytes # Blast Cells # WBC Morphology Hypersegmented Neuts Hyposegmented Neuts Hypogranular Neuts Smudge Cells Toxic Granulation Toxic Vacuolation Dohle Bodies Pelger-Huet Anomaly Cindy Rods Platelet Estimate Clumped Platelets Plt Clumps, EDTA Large Platelets Giant Platelets Platelet Satelliting Plt Morphology Comment RBC Morphology Dimorphic RBCs Polychromasia Hypochromasia Poikilocytosis Anisocytosis Microcytosis Macrocytosis Spherocytes Pappenheimer Bodies Sickle Cells Target Cells Tear Drop Cells Ovalocytes Helmet Cells [place] Bodies [place] Rings [place] Cells Bite Cells Crenated Cell Elliptocytes Acanthocytes (Spur) Rouleaux Hemoglobin C Crystals Schistocytes Malaria parasites Percent Retic 1.80 Magdiel Bodies Hem Pathologist Commnt ABG pH POC ABG pCO2 ABG pCO2 POC ABG pO2 ABG pO2 POC ABG HCO3 ABG HCO3 ABG O2 Saturation ABG O2 Content POC ABG Base Excess ABG Base Excess ABG Hemoglobin ABG Oxyhemoglobin ABG Carboxyhemoglobin ABG Methemoglobin ABG Sodium ABG Potassium ABG Chloride ABG Glucose Oxyhemoglobin Carboxyhemoglobin FiO2 Sodium Potassium Chloride Carbon Dioxide Anion Gap BUN Creatinine Estimated GFR BUN/Creatinine Ratio Glucose POC Glucose Calcium Lactate Dehydrogenase 355 H Arterial Blood Glucose Arterial Blood Ionized Calcium Schistocytes Smear Blood Type Antibody Screen Direct Antiglob Test Negative BONI, Poly Interpret Negative Crossmatch Pre-Trans BONI Pre-Trans BONI Poly Post-Trans Blood Type Post-Trans BONI Post-Trans BONI Poly 10/29/20 10/29/20 10/30/20 23:14 Unknown 04:36 WBC RBC Hgb Hct MCV MCH MCHC RDW Plt Count Add Manual Diff Total Counted Seg Neutrophils % Seg Neuts % (Manual) Lymphocytes % (Manual) Monocytes % (Manual) Nucleated RBC % Seg Neutrophils # Man Band Neutrophils # Lymphocytes # (Manual) Abs React Lymphs (Man) Monocytes # (Manual) Eosinophils # (Manual) Basophils # (Manual) Metamyelocytes # Myelocytes # Promyelocytes # Blast Cells # WBC Morphology Hypersegmented Neuts Hyposegmented Neuts Hypogranular Neuts Smudge Cells Toxic Granulation Toxic Vacuolation Dohle Bodies Pelger-Huet Anomaly Cindy Rods Platelet Estimate Clumped Platelets Plt Clumps, EDTA Large Platelets Giant Platelets Platelet Satelliting Plt Morphology Comment RBC Morphology Dimorphic RBCs Polychromasia Hypochromasia Poikilocytosis Anisocytosis Microcytosis Macrocytosis Spherocytes Pappenheimer Bodies Sickle Cells Target Cells Tear Drop Cells Ovalocytes Helmet Cells [place] Bodies [place] Rings [place] Cells Bite Cells Crenated Cell Elliptocytes Acanthocytes (Spur) Rouleaux Hemoglobin C Crystals Schistocytes Malaria parasites Percent Retic Magdiel Bodies Hem Pathologist Commnt ABG pH 7.408 POC ABG pCO2 39.9 ABG pCO2 POC ABG pO2 68.2 L ABG pO2 POC ABG HCO3 24.6 ABG HCO3 ABG O2 Saturation ABG O2 Content POC ABG Base Excess 0 ABG Base Excess ABG Hemoglobin 6.6 L ABG Oxyhemoglobin 91.9 L ABG Carboxyhemoglobin ABG Methemoglobin 0.1 ABG Sodium 138.9 ABG Potassium 5.1 H ABG Chloride 109.0 H ABG Glucose 236 H Oxyhemoglobin Carboxyhemoglobin 1.4 FiO2 40 Sodium Potassium Chloride Carbon Dioxide Anion Gap BUN Creatinine Estimated GFR BUN/Creatinine Ratio Glucose POC Glucose 188 H Calcium Lactate Dehydrogenase Arterial Blood Glucose 236 H Arterial Blood Ionized Calcium 4.4 L Schistocytes Smear Blood Type Antibody Screen Direct Antiglob Test BONI, Poly Interpret Crossmatch Pre-Trans BONI Negative Pre-Trans BONI Poly Negative Post-Trans Blood Type O positive Post-Trans BONI Negative Post-Trans BONI Poly Negative 10/30/20 10/30/20 10/30/20 05:13 06:13 06:13 WBC 12.9 H RBC 3.23 L Hgb 5.8 L* Hct 20.2 L MCV 63 L MCH 18 L MCHC 29 L RDW 40.0 H Plt Count 414 Add Manual Diff Total Counted Seg Neutrophils % Seg Neuts % (Manual) Lymphocytes % (Manual) Monocytes % (Manual) Nucleated RBC % Seg Neutrophils # Man Band Neutrophils # Lymphocytes # (Manual) Abs React Lymphs (Man) Monocytes # (Manual) Eosinophils # (Manual) Basophils # (Manual) Metamyelocytes # Myelocytes # Promyelocytes # Blast Cells # WBC Morphology Hypersegmented Neuts Hyposegmented Neuts Hypogranular Neuts Smudge Cells Toxic Granulation Toxic Vacuolation Dohle Bodies Pelger-Huet Anomaly Cindy Rods Platelet Estimate Clumped Platelets Plt Clumps, EDTA Large Platelets Giant Platelets Platelet Satelliting Plt Morphology Comment RBC Morphology Dimorphic RBCs Polychromasia Hypochromasia Poikilocytosis Anisocytosis Microcytosis Macrocytosis Spherocytes Pappenheimer Bodies Sickle Cells Target Cells Tear Drop Cells Ovalocytes Helmet Cells [place] Bodies [place] Rings Quique Cells Bite Cells Crenated Cell Elliptocytes Acanthocytes (Spur) Rouleaux Hemoglobin C Crystals Schistocytes Malaria parasites Percent Retic Magdiel Bodies Hem Pathologist Commnt ABG pH POC ABG pCO2 ABG pCO2 POC ABG pO2 ABG pO2 POC ABG HCO3 ABG HCO3 ABG O2 Saturation ABG O2 Content POC ABG Base Excess ABG Base Excess ABG Hemoglobin ABG Oxyhemoglobin ABG Carboxyhemoglobin ABG Methemoglobin ABG Sodium ABG Potassium ABG Chloride ABG Glucose Oxyhemoglobin Carboxyhemoglobin FiO2 Sodium 143 Potassium 5.2 H Chloride 108.4 H Carbon Dioxide 28 D Anion Gap 12 BUN 28 H Creatinine 1.0 Estimated GFR > 60 BUN/Creatinine Ratio 28 Glucose 244 H POC Glucose 221 H Calcium 8.1 L Lactate Dehydrogenase Arterial Blood Glucose Arterial Blood Ionized Calcium Schistocytes Smear Blood Type Antibody Screen Direct Antiglob Test BONI, Poly Interpret Crossmatch Pre-Trans BONI Pre-Trans BONI Poly Post-Trans Blood Type Post-Trans BONI Post-Trans BONI Poly Medications & Allergies - Medications Allergies/Adverse Reactions: Allergies No Known Allergies Allergy (Verified 12/10/14 15:18) Home Medications: Home Medications Medication Instructions Recorded Confirmed Last Taken Type Citalopram Hydrobromide 40 mg PO DAILY 03/10/17 10/27/17 10/25/17 History [Citalopram HBr] Gabapentin [Neurontin] 600 mg PO Q8H 03/10/17 10/27/17 10/25/17 History Acetaminophen/Diphenhydramine 1 each PO DAILY 10/27/17 10/27/17 10/25/17 History [Tylenol Pm Ex-Strength Caplet] Losartan [Cozaar] 50 mg PO QDAY 10/27/17 10/27/17 10/25/17 History Pravastatin [Pravachol] 40 mg PO QHS 10/27/17 10/27/17 10/25/17 History QUEtiapine [SEROquel] 100 mg PO HS 10/28/17 10/28/17 Unknown History ALPRAZolam [Xanax TAB] 0.5 mg PO BID PRN #10 tablet 11/02/17 Unknown Rx Albuterol Mdi (or & Nicu Only) 2 puff IH QID PRN #1 inhalation 11/02/17 Unknown Rx [ProAir HFA Inhaler] Azithromycin [Zithromax TAB] 500 mg PO QDAY #5 tablet 11/02/17 Unknown Rx Fluticasone/Salmeterol [Advair 1 puff IH BID #1 disk.w.dev 11/02/17 Unknown Rx Diskus 250-50 mcg] Metoprolol [Lopressor TAB] 12.5 mg PO BID #60 tablet 11/02/17 Unknown Rx Pantoprazole [Protonix TAB] 40 mg PO BID #60 tablet 11/02/17 Unknown Rx Prednisone [predniSONE 10 mg 10 mg PO .TAPER #1 tab.ds.pk 11/02/17 Unknown Rx (6-Day Pack, 21 Tabs)] Active Medications: Generic Name Dose Route Start Last Admin Trade Name Freq PRN Reason Stop Dose Admin Albuterol 2 puff 10/29/20 01:27 Albuterol 8.5 Gm Mdi Inhalation IH QID PRN Shortness Of Breath Albuterol/Ipratropium 1 ampul 10/30/20 08:00 Ipratropium/Albuterol Sulfate 3 Ml Ampul.Neb IH TIDRT [facility] Alprazolam 0.5 mg 10/29/20 01:27 Alprazolam 0.5 Mg Tab PO BID PRN Anxiety Arformoterol Tartrate 15 mcg 10/29/20 08:00 10/29/20 23:38 Arformoterol 15 Mcg/2 Ml Nebu IH Not Given Q12HRT [facility] Azithromycin 500 mg 10/29/20 10:00 Azithromycin 250 Mg Tab PO 11/02/20 10:01 QDAY [facility] Protocol Budesonide 0.5 mg 10/29/20 08:00 10/29/20 23:38 Budesonide 0.5 Mg/2 Ml Nebu IH Not Given BIDRT [facility] Citalopram Hydrobromide 40 mg 10/29/20 10:00 Citalopram 20 Mg Tab PO DAILY [facility] Diphenhydramine HCl 25 mg 10/30/20 08:00 Diphenhydramine 50 Mg/Ml Vial IV 10/30/20 08:01 ONCE ONE Fentanyl 50 mcg 10/29/20 11:55 10/29/20 16:56 Fentanyl 100 Mcg/2 Ml Inj IV 50 mcg Q2H PRN Administration Pain, Mild (1-3) Hydrophilic Ointment 1 applic 10/29/20 09:02 Lip Therapy Vaseline TP Q2HR PRN Dry Lips Dextrose/Sodium Chloride 1,000 mls @ 100 mls/hr 10/29/20 02:00 D5/0.45ns IV DIRECT [facility] Propofol 1,000 mg in 100 mls @ 2.994 mls/hr 10/29/20 09:15 10/30/20 05:18 Diprivan 10 Mg/Ml IV 40 mcg/kg/min TITR [facility] 23.952 mls/hr Administration Protocol 5 MCG/KG/MIN Insulin Human Lispro 0 unit 10/29/20 13:00 10/30/20 05:22 Insulin Lispro 100 Unit/Ml SUB-Q 3 unit Q6HR [facility] Administration Protocol Lorazepam 1 mg 10/29/20 03:40 10/30/20 01:05 Lorazepam 2 Mg/Ml Vial IV 1 mg Q4H PRN Administration Agitation Losartan Potassium 50 mg 10/29/20 10:00 Losartan 50 Mg Tab PO QDAY [facility] Methylprednisolone Sodium Succinate 80 mg 10/30/20 08:00 Methylprednisolone Sod Succinate 125 Mg/2 Ml Inj IV Q8HR [facility] Metoprolol Tartrate 12.5 mg 10/29/20 10:00 10/29/20 22:10 Metoprolol Tartrate 25 Mg Tab PO 12.5 mg BID [facility] Administration Multi-Ingred Cream/Lotion/Oil/Oint 1 applic 10/29/20 09:02 Mineral Oil/Petrolatum, White Ophth Oint 3.5 Gm OU Q4HR PRN Dry Eye(s) Pantoprazole Sodium 40 mg 10/29/20 02:00 10/30/20 05:24 Pantoprazole 40 Mg Inj IV 40 mg BID@0600,1800 [facility] Administration Pravastatin Sodium 40 mg 10/29/20 22:00 10/29/20 22:12 Pravastatin 40 Mg Tab PO 40 mg QHS [facility] Administration Sodium Chloride 10 ml 10/29/20 10:00 Sodium Chloride 0.9% 10 Ml Flush Syringe IV BID [facility] Sodium Chloride 10 ml 10/29/20 01:28 Sodium Chloride 0.9% 10 Ml Flush Syringe IV PRN PRN LINE FLUSH
[2020-10-30] MEDS ORDERED: diphenhydrAMINE 50 MG/ML VIAL IV ONE (08:00)
[2020-10-30 08:28] LABS: Total Cells Counted 100
[2020-10-30 08:30] LABS: Anisocytosis 3+; Hypochromasia 2+; Poikilocytosis 1+
[2020-10-30 08:31] LABS: Ovalocytes Few; Schistocytes Rare; Tear Drop Cells Few
[2020-10-30 08:32] LABS: Platelet Estimate Consistent w Auto
--- NOTE | 2020-10-30 08:38 | XRay Report ---
CHEST - 1 VIEW INDICATION: sob COMPARISON: Yesterday FINDINGS: SUPPORT DEVICES: New right-sided PICC line with tip in the high right atrium and new NG tube project ing below the [id number]. Stable satisfactory positioning of the endotracheal tube. HEART: Stable cardiomediastinal silhouette. LUNGS/PLEURA: Mild diffuse interstitial prominence again seen with streaky bibasilar airspace diseas e and central peribronchial thickening. ADDITIONAL FINDINGS: None. IMPRESSION: Support devices as above. Otherwise largely unchanged exam. Signer Name: Jermain Del Rio MD Signed: 10/30/2020 8:34 AM Workstation Name: [id number]
[2020-10-30] MEDS: BUDESONIDE 0.5 MG/2 ML NEBU IH SCH ×2 (08:52→20:14)
[2020-10-30] MEDS: ARFORMOTEROL 15 MCG/2 ML NEBU IH SCH ×2 (08:52→20:14)
[2020-10-30] MEDS: IPRATROPIUM/ALBUTEROL SULFATE 3 ML AMPUL.NEB IH SCH ×3 (08:52→20:15)
[2020-10-30] MEDS: CITALOPRAM 20 MG TAB PO SCH (09:33)
[2020-10-30] MEDS: AZITHROMYCIN 250 MG TAB PO SCH (09:33)
[2020-10-30] MEDS: METOPROLOL TARTRATE 25 MG TAB PO SCH ×2 (09:34→22:41)
[2020-10-30] MEDS: LOSARTAN 50 MG TAB PO SCH (09:34)
[2020-10-30] MEDS: methylPREDNISolone Sod Succinate 125 MG/2 ML INJ IV SCH ×3 (09:35→22:34)
[2020-10-30] MEDS ORDERED: SODIUM CHLORIDE 0.9% 500 ML 500 ML IV NR (10:00)
[2020-10-30] MEDS ORDERED: FUROSEMIDE 40 MG/4 ML INJ IV ONE (11:00)
--- NOTE | 2020-10-30 11:39 | Consultation ---
History of Present Illness Consult date: 10/30/20 Requesting physician: SALVADOR GOODSON Reason for consult: other (altered mental state and hypoxemia requiring ventilation) History of present illness: 75 y/o female with prior history of anemia, admitted to the ICU after having an acute epidsode of altered mental status in the ED during blood transfusion. Patient was intubated and then transferred to the ICU. Upon arrival on yesterday she would arouse but was sedated. CXR showed would could be pulmonary edema from volume overload. Patient was given IV lasix which she tolerated and is now on 40% and 12 of PEEP with good sats. CXR is stable. She is getting more blood. GI is consulted to see her as well as this has been a chronic issue for patient. She was last seen in this hospital with similar presentation in 2018. Past History Past Medical History: COPD, hypertension Medications and Allergies Allergies Allergy/AdvReac Type Severity Reaction Status Date / Time No Known Allergies Allergy Verified 12/10/14 15:18 Home Medications Medication Instructions Recorded Confirmed Last Taken Type Citalopram Hydrobromide 40 mg PO DAILY 03/10/17 10/27/17 10/25/17 History [Citalopram HBr] Gabapentin [Neurontin] 600 mg PO Q8H 03/10/17 10/27/17 10/25/17 History Acetaminophen/Diphenhydramine 1 each PO DAILY 10/27/17 10/27/17 10/25/17 History [Tylenol Pm Ex-Strength Caplet] Losartan [Cozaar] 50 mg PO QDAY 10/27/17 10/27/17 10/25/17 History Pravastatin [Pravachol] 40 mg PO QHS 10/27/17 10/27/17 10/25/17 History QUEtiapine [SEROquel] 100 mg PO HS 10/28/17 10/28/17 Unknown History ALPRAZolam [Xanax TAB] 0.5 mg PO BID PRN #10 tablet 11/02/17 Unknown Rx Albuterol Mdi (or & Nicu Only) 2 puff IH QID PRN #1 inhalation 11/02/17 Unknown Rx [ProAir HFA Inhaler] Azithromycin [Zithromax TAB] 500 mg PO QDAY #5 tablet 11/02/17 Unknown Rx Fluticasone/Salmeterol [Advair 1 puff IH BID #1 disk.w.dev 11/02/17 Unknown Rx Diskus 250-50 mcg] Metoprolol [Lopressor TAB] 12.5 mg PO BID #60 tablet 11/02/17 Unknown Rx Pantoprazole [Protonix TAB] 40 mg PO BID #60 tablet 11/02/17 Unknown Rx Prednisone [predniSONE 10 mg 10 mg PO .TAPER #1 tab.ds.pk 11/02/17 Unknown Rx (6-Day Pack, 21 Tabs)] Active Meds: Active Medications Albuterol (Albuterol 8.5 Gm Mdi Inhalation) 2 puff IH QID PRN PRN Reason: Shortness Of Breath Albuterol/Ipratropium (Ipratropium/Albuterol Sulfate 3 Ml Ampul.Neb) 1 ampul IH TIDRT [facility] Last Admin: 10/30/20 08:52 Dose: 1 ampul Documented by: Alprazolam (Alprazolam 0.5 Mg Tab) 0.5 mg PO BID PRN PRN Reason: Anxiety Arformoterol Tartrate (Arformoterol 15 Mcg/2 Ml Nebu) 15 mcg IH Q12HRT [facility] Last Admin: 10/30/20 08:52 Dose: 15 mcg Documented by: Azithromycin (Azithromycin 250 Mg Tab) 500 mg PO QDAY [facility]; Protocol Stop: 11/02/20 10:01 Last Admin: 10/30/20 09:33 Dose: 500 mg Documented by: Budesonide (Budesonide 0.5 Mg/2 Ml Nebu) 0.5 mg IH BIDRT [facility] Last Admin: 10/30/20 08:52 Dose: 0.5 mg Documented by: Citalopram Hydrobromide (Citalopram 20 Mg Tab) 40 mg PO DAILY [facility] Last Admin: 10/30/20 09:33 Dose: 40 mg Documented by: Fentanyl (Fentanyl 100 Mcg/2 Ml Inj) 50 mcg IV Q2H PRN PRN Reason: Pain, Mild (1-3) Last Admin: 10/29/20 16:56 Dose: 50 mcg Documented by: Hydrophilic Ointment (Lip Therapy Vaseline) 1 applic TP Q2HR PRN PRN Reason: Dry Lips Propofol (Diprivan 10 Mg/Ml) 1,000 mg in 100 mls @ 2.994 mls/hr IV TITR [facility]; Protocol Last Admin: 10/30/20 09:33 Dose: 40 mcg/kg/min, 23.952 mls/hr Documented by: Sodium Chloride (Nacl 0.9% 500 Ml) 500 mls @ 0 mls/hr IV ONCE NR Stop: 10/30/20 23:59 Insulin Human Lispro (Insulin Lispro 100 Unit/Ml) 0 unit SUB-Q Q6HR [facility]; Protocol Last Admin: 10/30/20 05:22 Dose: 3 unit Documented by: Lorazepam (Lorazepam 2 Mg/Ml Vial) 1 mg IV Q4H PRN PRN Reason: Agitation Last Admin: 10/30/20 01:05 Dose: 1 mg Documented by: Losartan Potassium (Losartan 50 Mg Tab) 50 mg PO QDAY [facility] Methylprednisolone Sodium Succinate (Methylprednisolone Sod Succinate 125 Mg/2 Ml Inj) 80 mg IV Q8HR [facility] Last Admin: 10/30/20 09:35 Dose: 80 mg Documented by: Metoprolol Tartrate (Metoprolol Tartrate 25 Mg Tab) 12.5 mg PO BID [facility] Last Admin: 10/30/20 09:34 Dose: 12.5 mg Documented by: Multi-Ingred Cream/Lotion/Oil/Oint (Mineral Oil/Petrolatum, White Ophth Oint 3.5 Gm) 1 applic OU Q4HR PRN PRN Reason: Dry Eye(s) Pantoprazole Sodium (Pantoprazole 40 Mg Inj) 40 mg IV BID@0600,1800 [facility] Last Admin: 10/30/20 05:24 Dose: 40 mg Documented by: Pravastatin Sodium (Pravastatin 40 Mg Tab) 40 mg PO QHS [facility] Last Admin: 10/29/20 22:12 Dose: 40 mg Documented by: Sodium Chloride (Sodium Chloride 0.9% 10 Ml Flush Syringe) 10 ml IV BID [facility] Last Admin: 10/30/20 09:36 Dose: 10 ml Documented by: Sodium Chloride (Sodium Chloride 0.9% 10 Ml Flush Syringe) 10 ml IV PRN PRN PRN Reason: LINE FLUSH Review of Systems ROS unobtainable: due to endotracheal tube, due to mental status Physical Examination Vital signs: Vital Signs Temp Pulse Resp BP Pulse Ox 98.2 F 118 H 24 134/52 99 10/28/20 23:09 10/28/20 23:09 10/28/20 23:09 10/28/20 23:09 10/28/20 23:09 General appearance: no acute distress, appears uncomfortable, other (will wake up with light stimulation) Eyes: non-icteric ENT: other (orally intubated and sedated) Neck: supple Effort: mildly labored Ascultation: Bilateral: diminished breath sounds Percussion: Right: not dull Cardiovascular: regular rate and rhythm Gastrointestinal: normoactive bowel sounds, soft, non-tender Extremities: no edema, pink and warm, pulses normal Results - Laboratory Findings CBC and BMP: 10/30/20 06:13 10/30/20 06:13 ABG ABG pH 7.408 (7.320-7.450) 10/30/20 04:36 POC ABG pCO2 39.9 mmHg (32.0-48.0) 10/30/20 04:36 ABG pCO2 43.7 mm Hg 10/29/20 10:35 POC ABG pO2 68.2 mmHg (83-108) L 10/30/20 04:36 ABG pO2 68.0 mm Hg (80.0-90.0) L 10/29/20 10:35 POC ABG HCO3 24.6 10/30/20 04:36 ABG O2 Saturation 93.8 % (95.0-99.0) L 10/29/20 10:35 PT/INR, D-dimer PT 16.6 Sec. (12.2-14.9) H 10/28/20 23:25 INR 1.34 (0.87-1.13) H 10/28/20 23:25 D-Dimer 798.02 ng/mlDDU (0-234) H 10/28/20 23:25 Abnormal lab findings: Abnormal Labs 10/28/20 10/28/20 10/28/20 23:25 23:25 23:25 WBC 13.2 H RBC 2.59 L Hgb 3.2 L* Hct 13.2 L* MCV 51 L MCH 12 L MCHC 25 L RDW 24.5 H Plt Count 504 H Seg Neuts % (Manual) 96.0 H Lymphocytes % (Manual) 2.0 L Nucleated RBC % Seg Neutrophils # Man 12.7 H Lymphocytes # (Manual) 0.3 L PT 16.6 H INR 1.34 H D-Dimer 798.02 H ABG pH POC ABG pO2 ABG pO2 ABG O2 Saturation ABG Base Excess ABG Hemoglobin ABG Oxyhemoglobin ABG Sodium ABG Potassium ABG Chloride ABG Glucose Oxyhemoglobin Potassium 5.2 H Chloride Carbon Dioxide 17 L BUN 30 H Creatinine 1.4 H Glucose 313 H POC Glucose Calcium 8.2 L Lactate Dehydrogenase NT-Pro-B Natriuret Pep 1685 H Arterial Blood Glucose Arterial Blood Ionized Calcium Crossmatch 10/29/20 10/29/20 10/29/20 00:20 04:24 08:41 WBC RBC Hgb Hct MCV MCH MCHC RDW Plt Count Seg Neuts % (Manual) Lymphocytes % (Manual) Nucleated RBC % Seg Neutrophils # Man Lymphocytes # (Manual) PT INR D-Dimer ABG pH 7.208 L POC ABG pO2 249.6 H ABG pO2 ABG O2 Saturation ABG Base Excess ABG Hemoglobin 5 L ABG Oxyhemoglobin ABG Sodium 135.1 L ABG Potassium 5.4 H ABG Chloride 108.0 H ABG Glucose 413 H Oxyhemoglobin Potassium Chloride Carbon Dioxide BUN Creatinine Glucose POC Glucose 367 H Calcium Lactate Dehydrogenase NT-Pro-B Natriuret Pep Arterial Blood Glucose 413 H Arterial Blood Ionized Calcium 4.5 L Crossmatch See Detail 10/29/20 10/29/20 10/29/20 10:35 12:05 12:12 WBC 11.8 H RBC 3.20 L Hgb 5.3 L* Hct 19.0 L* MCV 59 L MCH 17 L MCHC 28 L RDW 38.0 H Plt Count 469 H Seg Neuts % (Manual) 93.0 H Lymphocytes % (Manual) 6.0 L Nucleated RBC % Seg Neutrophils # Man 11.0 H Lymphocytes # (Manual) 0.7 L PT INR D-Dimer ABG pH 7.336 L POC ABG pO2 ABG pO2 68.0 L ABG O2 Saturation 93.8 L ABG Base Excess -2.7 L ABG Hemoglobin 6.0 L ABG Oxyhemoglobin ABG Sodium ABG Potassium ABG Chloride ABG Glucose Oxyhemoglobin 91.4 L Potassium Chloride Carbon Dioxide BUN Creatinine Glucose POC Glucose 313 H Calcium Lactate Dehydrogenase NT-Pro-B Natriuret Pep Arterial Blood Glucose Arterial Blood Ionized Calcium Crossmatch 10/29/20 10/29/20 10/29/20 17:50 18:37 23:14 WBC RBC Hgb Hct MCV MCH MCHC RDW Plt Count Seg Neuts % (Manual) Lymphocytes % (Manual) Nucleated RBC % Seg Neutrophils # Man Lymphocytes # (Manual) PT INR D-Dimer ABG pH POC ABG pO2 ABG pO2 ABG O2 Saturation ABG Base Excess ABG Hemoglobin ABG Oxyhemoglobin ABG Sodium ABG Potassium ABG Chloride ABG Glucose Oxyhemoglobin Potassium Chloride Carbon Dioxide BUN Creatinine Glucose POC Glucose 201 H 188 H Calcium Lactate Dehydrogenase 355 H NT-Pro-B Natriuret Pep Arterial Blood Glucose Arterial Blood Ionized Calcium Crossmatch 10/30/20 10/30/20 10/30/20 04:36 05:13 06:13 WBC 12.9 H RBC 3.23 L Hgb 5.8 L* Hct 20.2 L MCV 63 L MCH 18 L MCHC 29 L RDW 40.0 H Plt Count Seg Neuts % (Manual) 92.0 H Lymphocytes % (Manual) 3.0 L Nucleated RBC % 2.0 H Seg Neutrophils # Man 11.9 H Lymphocytes # (Manual) 0.4 L PT INR D-Dimer ABG pH POC ABG pO2 68.2 L ABG pO2 ABG O2 Saturation ABG Base Excess ABG Hemoglobin 6.6 L ABG Oxyhemoglobin 91.9 L ABG Sodium ABG Potassium 5.1 H ABG Chloride 109.0 H ABG Glucose 236 H Oxyhemoglobin Potassium Chloride Carbon Dioxide BUN Creatinine Glucose POC Glucose 221 H Calcium Lactate Dehydrogenase NT-Pro-B Natriuret Pep Arterial Blood Glucose 236 H Arterial Blood Ionized Calcium 4.4 L Crossmatch 10/30/20 06:13 WBC RBC Hgb Hct MCV MCH MCHC RDW Plt Count Seg Neuts % (Manual) Lymphocytes % (Manual) Nucleated RBC % Seg Neutrophils # Man Lymphocytes # (Manual) PT INR D-Dimer ABG pH POC ABG pO2 ABG pO2 ABG O2 Saturation ABG Base Excess ABG Hemoglobin ABG Oxyhemoglobin ABG Sodium ABG Potassium ABG Chloride ABG Glucose Oxyhemoglobin Potassium 5.2 H Chloride 108.4 H Carbon Dioxide BUN 28 H Creatinine Glucose 244 H POC Glucose Calcium 8.1 L Lactate Dehydrogenase NT-Pro-B Natriuret Pep Arterial Blood Glucose Arterial Blood Ionized Calcium Crossmatch - Diagnostic Findings Chest x-ray: image reviewed Assessment and Plan 75 y/o female with acute respiratory failure secondary to altered mental state and hypoxemia, TRALI vs TACO (Transfusion Associated Circulatory Overload). 1. Pulm- Given need for more blood, will hold on weaning for today and allow patient to be transfused up to goal. Continue sedation with diprovan. will need triglycerides checked either tomorrow or Wednesday if still intubated. Continue high peeps for now, and will start to wean once H/H at Goal. Appreciate Heme evaluation. Lasix given again today and will likely give again tonight. 2. GI-Ir Def anemia, chronic in nature and prior history of Gastric AVM's. No evidence of active bleeding at present. Await GI evaluation. Agree with GI evaluation. Ok with feeding patient unless GI has plans to scope in the near future. 3. Heme-anemia. Appreciate recs. Steroids started by heme so defer them on duration. Patient is not actively in COPD exacerbation. 4. Hold on DVT prophylaxis with drugs, SCDs only. Guarded prognosis CCT 31 minutes
--- NOTE | 2020-10-30 16:01 | Progress Note ---
Assessment and Plan Critical care statement The high probability OF a clinically significant sudden or life-threatening deterioration of the cardiorespiratory system and endocrine system required my full and direct attention, intervention and postoperative management. The aggregate critical care time was 40 minutes. The time is in addition to time spent performing reported procedures but includes the followin: Data review and interpretation 2: Patient assessment and monitoring of vital signs 3: Documentation 4:: Medication orders and management - Patient Problems (1) Acute respiratory failure with hypoxia Current Visit: Yes Status: Acute Plan to address problem: Patient was intubated yesterday Continue duo nebs Continue steroids Continue IV antibiotics (2) Symptomatic anemia Current Visit: Yes Status: Acute Plan to address problem: Patient being transfused Keep the hematocrit above 24 Hematology consult appreciated (3) COPD with acute exacerbation Current Visit: Yes Status: Acute Plan to address problem: Continue duo nebs IV antibiotics and steroids (4) GI bleed Current Visit: No Status: Chronic Qualifiers: GI bleed type/associated pathology: unspecified gastrointestinal hemorrhage type Qualified Code(s): K92.2 - Gastrointestinal hemorrhage, unspecified Plan to address problem: Patient has history of gastric AVMs for which she did not go for follow-up Transfuse as necessary to keep the hemoglobin above 8 and hematocrit about 24 (5) Metabolic encephalopathy Current Visit: No Status: Acute Plan to address problem: Severe confusion Possibly secondary to hypoxia and transfusion reaction Hematology consult appreciated (6) HTN (hypertension) Current Visit: No Status: Chronic Qualifiers: Hypertension type: essential hypertension Qualified Code(s): I10 - Essential (primary) hypertension Plan to address problem: Continue antihypertensives (7) Hyperlipidemia Current Visit: Yes Status: Chronic Qualifiers: Hyperlipidemia type: mixed hyperlipidemia Qualified Code(s): E78.2 - Mixed hyperlipidemia Plan to address problem: Continue statins (8) Transfusion reaction Current Visit: Yes Status: Acute Qualifiers: Encounter type: initial encounter Qualified Code(s): T80.92XA - Unspecified transfusion reaction, initial encounter Plan to address problem: Hematology consult requested (9) Depression Current Visit: Yes Status: Chronic Qualifiers: Depression Type: dysthymia Qualified Code(s): F34.1 - Dysthymic disorder Plan to address problem: Patient on citalopram 40 mg daily (10) Generalized anxiety disorder Current Visit: Yes Status: Acute Plan to address problem: Patient on anxiolytics from home (11) DVT prophylaxis Current Visit: No Status: Acute Plan to address problem: On SCDs and GI prophylaxis because of the low hemoglobin and tendency to bleed Subjective Date of service: 10/30/20 Principal diagnosis: Severe anemia, transfusion reaction Interval history: 75-year-old female with a past medical history of COPD on 3 L of home oxygen , multiple sclerosis, hypertension, elevated cholesterol was brought to the to the hospital complaining of intermittent shortness of breath progressively worsening the last several weeks. Symptoms are especially worse with minimal exertion. Patient using bronchodilators intermittently with minimal and only temporary improvement. patient was admitted October 2017 with acute on chronic respiratory failure, severe anemia required several units of blood and had a GI work-up that included hiatal hernia, and small gastric ulceration, and a 5 mm AVM a duodenal bulb status post APC (argon plasma coagulation) treatment. Patient denied any rectal bleeding. In the emergency room patient hemoglobin is 3.1 hematocrit 13.2. Day #2 10/30/2020 Patient was transfused multiple units Patient went into respiratory distress and altered mental status and was intubated yesterday. 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 Patient intubated Possible transfusion reaction Low hemoglobin and hematocrit possibly secondary to AVMs by history Patient has history of gastric AVMs No melanotic stools Objective - Exam Narrative Exam: Patient intubated - Constitutional Vitals: Vital Signs - 12hr 10/30/20 10/30/20 10/30/20 04:15 04:18 04:24 Temperature 99.2 F Pulse Rate 97 H 97 H Pulse Rate [ Throughout] Respiratory 20 Rate Respiratory Rate [ Throughout] Blood Pressure 124/61 124/61 O2 Sat by Pulse 100 100 Oximetry 10/30/20 10/30/20 10/30/20 04:31 04:41 04:51 Temperature Pulse Rate 98 H 97 H 97 H Pulse Rate [ Throughout] Respiratory 18 19 20 Rate Respiratory Rate [ Throughout] Blood Pressure 126/53 126/53 126/53 O2 Sat by Pulse 100 100 100 Oximetry 10/30/20 10/30/20 10/30/20 05:01 05:11 05:21 Temperature Pulse Rate 102 H 104 H 100 H Pulse Rate [ Throughout] Respiratory 23 15 19 Rate Respiratory Rate [ Throughout] Blood Pressure 134/65 134/65 134/65 O2 Sat by Pulse 100 100 Oximetry 10/30/20 10/30/20 10/30/20 05:30 05:41 05:51 Temperature Pulse Rate 98 H 96 H 95 H Pulse Rate [ Throughout] Respiratory 17 14 22 Rate Respiratory Rate [ Throughout] Blood Pressure 141/66 141/66 141/66 O2 Sat by Pulse 99 100 100 Oximetry 10/30/20 10/30/20 10/30/20 06:01 06:11 06:21 Temperature Pulse Rate 97 H 96 H 96 H Pulse Rate [ Throughout] Respiratory 18 19 21 Rate Respiratory Rate [ Throughout] Blood Pressure 133/64 133/64 133/64 O2 Sat by Pulse 100 100 100 Oximetry 10/30/20 10/30/20 10/30/20 06:31 06:45 07:01 Temperature Pulse Rate 97 H 96 H 97 H Pulse Rate [ Throughout] Respiratory 18 18 15 Rate Respiratory Rate [ Throughout] Blood Pressure 128/63 128/63 132/54 O2 Sat by Pulse 100 100 100 Oximetry 10/30/20 10/30/20 10/30/20 07:15 07:30 07:41 Temperature Pulse Rate 96 H 96 H 96 H Pulse Rate [ Throughout] Respiratory 22 24 16 Rate Respiratory Rate [ Throughout] Blood Pressure 132/54 133/63 133/63 O2 Sat by Pulse 100 99 100 Oximetry 10/30/20 10/30/20 10/30/20 07:51 08:00 08:01 Temperature Pulse Rate 99 H 97 H 102 H Pulse Rate [ Throughout] Respiratory 16 15 Rate Respiratory Rate [ Throughout] Blood Pressure 133/63 133/63 O2 Sat by Pulse 100 100 100 Oximetry 10/30/20 10/30/20 10/30/20 08:11 08:21 08:30 Temperature Pulse Rate 97 H 98 H 97 H Pulse Rate [ Throughout] Respiratory 27 H 19 19 Rate Respiratory Rate [ Throughout] Blood Pressure 131/60 131/60 134/65 O2 Sat by Pulse 100 100 100 Oximetry 10/30/20 10/30/20 10/30/20 08:41 08:47 08:51 Temperature Pulse Rate 96 H 95 H 96 H Pulse Rate [ Throughout] Respiratory 22 16 Rate Respiratory Rate [ Throughout] Blood Pressure 134/65 134/65 134/65 O2 Sat by Pulse 100 100 99 Oximetry 10/30/20 10/30/20 10/30/20 09:01 09:11 09:15 Temperature Pulse Rate 95 H 97 H Pulse Rate [ 85 Throughout] Respiratory 17 12 Rate Respiratory 18 Rate [ Throughout] Blood Pressure 128/63 128/63 O2 Sat by Pulse 98 97 Oximetry 10/30/20 10/30/20 10/30/20 09:21 09:31 09:34 Temperature Pulse Rate 99 H 100 H 99 H Pulse Rate [ Throughout] Respiratory 12 16 Rate Respiratory Rate [ Throughout] Blood Pressure 128/63 155/104 155/104 O2 Sat by Pulse 97 96 Oximetry 10/30/20 10/30/20 10/30/20 09:41 09:51 10:01 Temperature Pulse Rate 97 H 98 H 100 H Pulse Rate [ Throughout] Respiratory 19 15 11 L Rate Respiratory Rate [ Throughout] Blood Pressure 155/104 155/104 141/63 O2 Sat by Pulse 98 99 98 Oximetry 10/30/20 10/30/20 10/30/20 10:11 10:21 10:30 Temperature Pulse Rate 95 H 93 H 90 Pulse Rate [ Throughout] Respiratory 23 21 20 Rate Respiratory Rate [ Throughout] Blood Pressure 141/63 141/63 125/59 O2 Sat by Pulse 99 99 96 Oximetry 10/30/20 10/30/20 10/30/20 10:41 10:46 10:51 Temperature 97.6 F Pulse Rate 90 89 89 Pulse Rate [ Throughout] Respiratory 22 16 21 Rate Respiratory Rate [ Throughout] Blood Pressure 125/59 125/59 125/59 O2 Sat by Pulse 99 99 99 Oximetry 10/30/20 10/30/20 10/30/20 11:00 11:11 11:21 Temperature Pulse Rate 89 89 89 Pulse Rate [ Throughout] Respiratory 17 17 16 Rate Respiratory Rate [ Throughout] Blood Pressure 130/68 125/59 126/64 O2 Sat by Pulse 96 99 99 Oximetry 10/30/20 10/30/20 11:31 12:27 Temperature Pulse Rate 87 90 Pulse Rate [ Throughout] Respiratory 20 Rate Respiratory Rate [ Throughout] Blood Pressure 122/59 132/71 O2 Sat by Pulse 97 98 Oximetry General appearance: Present: mild distress, well-nourished - EENT Eyes: PERRL, EOM intact ENT: hearing intact, clear oral mucosa Ears: bilateral: normal - Neck Neck: supple, normal ROM - Respiratory Respiratory effort: normal Respiratory: bilateral: CTA - Breasts Breasts: normal - Cardiovascular Heart rate: 78 Rhythm: regular Heart Sounds: Present: S1 & S2. Absent: gallop, rub Extremities: pulses intact, No edema, normal color, Full ROM - Gastrointestinal General gastrointestinal: Present: soft, non-tender, non-distended, normal bowel sounds - Genitourinary Female genitourinary: normal - Integumentary Integumentary: clear, warm, dry - Musculoskeletal Musculoskeletal: 1, strength equal bilaterally - Neurologic Neurologic: moves all extremities - Psychiatric Psychiatric: other (Patient intubated) - Allied health notes Allied health notes reviewed: nursing, case management - Labs CBC & Chem 7: 11/03/20 07:11 11/03/20 07:11 Labs: Abnormal lab results 10/29/20 10/29/20 10/29/20 Range/Units 00:20 12:12 17:50 WBC (4.5-11.0) K/mm3 RBC (3.65-5.03) M/mm3 Hgb (10.1-14.3) gm/dl Hct (30.3-42.9) % MCV (79-97) fl MCH (28-32) pg MCHC (30-34) % RDW (13.2-15.2) % Seg Neuts % (Manual) (40.0-70.0) % Lymphocytes % (Manual) (13.4-35.0) % Nucleated RBC % (0.0-0.9) % Seg Neutrophils # Man (1.8-7.7) K/mm3 Lymphocytes # (Manual) (1.2-5.4) K/mm3 POC ABG pO2 (83-108) mmHg ABG Hemoglobin (12.0-17.5) ABG Oxyhemoglobin (94-98) ABG Potassium (3.40-4.50) mmol/L ABG Chloride (98-107) mmol/L ABG Glucose (65-95) mg/dL Potassium (3.6-5.0) mmol/L Chloride (98-107) mmol/L BUN (7-17) mg/dL Glucose (65-100) mg/dL POC Glucose 313 H 201 H (70-105) mg/dL Calcium (8.4-10.2) mg/dL Lactate Dehydrogenase (91-180) units/L Arterial Blood Glucose (65-95) mg/dL Arterial Blood Ionized Calcium (4.6-5.3) mg/dL Crossmatch See Detail 10/29/20 10/29/2010/30/21 Range/Units 18:37 23:14 04:36 WBC (4.5-11.0) K/mm3 RBC (3.65-5.03) M/mm3 Hgb (10.1-14.3) gm/dl Hct (30.3-42.9) % MCV (79-97) fl MCH (28-32) pg MCHC (30-34) % RDW (13.2-15.2) % Seg Neuts % (Manual) (40.0-70.0) % Lymphocytes % (Manual) (13.4-35.0) % Nucleated RBC % (0.0-0.9) % Seg Neutrophils # Man (1.8-7.7) K/mm3 Lymphocytes # (Manual) (1.2-5.4) K/mm3 POC ABG pO2 68.2 L (83-108) mmHg ABG Hemoglobin 6.6 L (12.0-17.5) ABG Oxyhemoglobin 91.9 L (94-98) ABG Potassium 5.1 H (3.40-4.50) mmol/L ABG Chloride 109.0 H (98-107) mmol/L ABG Glucose 236 H (65-95) mg/dL Potassium (3.6-5.0) mmol/L Chloride (98-107) mmol/L BUN (7-17) mg/dL Glucose (65-100) mg/dL POC Glucose 188 H (70-105) mg/dL Calcium (8.4-10.2) mg/dL Lactate Dehydrogenase 355 H (91-180) units/L Arterial Blood Glucose 236 H (65-95) mg/dL Arterial Blood Ionized Calcium 4.4 L (4.6-5.3) mg/dL Crossmatch 10/30/20 10/30/20 10/30/20 Range/Units 05:13 06:13 06:13 WBC 12.9 H (4.5-11.0) K/mm3 RBC 3.23 L (3.65-5.03) M/mm3 Hgb 5.8 L* (10.1-14.3) gm/dl Hct 20.2 L (30.3-42.9) % MCV 63 L (79-97) fl MCH 18 L (28-32) pg MCHC 29 L (30-34) % RDW 40.0 H (13.2-15.2) % Seg Neuts % (Manual) 92.0 H (40.0-70.0) % Lymphocytes % (Manual) 3.0 L (13.4-35.0) % Nucleated RBC % 2.0 H (0.0-0.9) % Seg Neutrophils # Man 11.9 H (1.8-7.7) K/mm3 Lymphocytes # (Manual) 0.4 L (1.2-5.4) K/mm3 POC ABG pO2 (83-108) mmHg ABG Hemoglobin (12.0-17.5) ABG Oxyhemoglobin (94-98) ABG Potassium (3.40-4.50) mmol/L ABG Chloride (98-107) mmol/L ABG Glucose (65-95) mg/dL Potassium 5.2 H (3.6-5.0) mmol/L Chloride 108.4 H (98-107) mmol/L BUN 28 H (7-17) mg/dL Glucose 244 H (65-100) mg/dL POC Glucose 221 H (70-105) mg/dL Calcium 8.1 L (8.4-10.2) mg/dL Lactate Dehydrogenase (91-180) units/L Arterial Blood Glucose (65-95) mg/dL Arterial Blood Ionized Calcium (4.6-5.3) mg/dL Crossmatch HEART Score - HEART Score Troponin: Troponin T < 0.010 ng/mL (0.00-0.029) 10/28/20 23:36
--- NOTE | 2020-10-30 17:09 | Consultation ---
History of Present Illness - Reason for Consult Consult date: 10/30/20 Anemia Requesting physician: SALVADOR GOODSON - History of Present Illness Ms. Mcclellan is a 75-year-old woman with multiple medical problems including multiple sclerosis and COPD on home oxygen who was admitted with progressive dyspnea on exertion and shortness of breath. On admission, she was found to have a hemoglobin of 3.5. While getting transfused, she developed acute exacerbation of shortness of breath and was intubated. Currently, she is on a ventilator and awake and alert but not shaking her head appropriately to questions. Patient has a history of iron deficiency anemia with a similarly low hemoglobin in October 2017. 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 Outpatient colonoscopy was recommended but it is unclear what has happened in the interim since I do not have any records. No darrel GI bleeding is recorded. There were no specific GI complaints documented by the ER physician at time of admission. Medications reviewed. Past History Past Medical History: anemia (Iron deficiency with sat'n = 3% in 10/28/17), COPD (on 2-3 liters home O2), hypertension, other (Multiple sclerosis) Past Surgical History: Other (Abdominal surgery, details unavailable at present as pt on ventilator) Social history: other (Unable to obtain) Medications and Allergies Allergies Allergy/AdvReac Type Severity Reaction Status Date / Time No Known Allergies Allergy Verified 12/10/14 15:18 Home Medications Medication Instructions Recorded Confirmed Last Taken Type Citalopram Hydrobromide 40 mg PO DAILY 03/10/17 10/27/17 10/25/17 History [Citalopram HBr] Gabapentin [Neurontin] 600 mg PO Q8H 03/10/17 10/27/17 10/25/17 History Acetaminophen/Diphenhydramine 1 each PO DAILY 10/27/17 10/27/17 10/25/17 History [Tylenol Pm Ex-Strength Caplet] Losartan [Cozaar] 50 mg PO QDAY 10/27/17 10/27/17 10/25/17 History Pravastatin [Pravachol] 40 mg PO QHS 10/27/17 10/27/17 10/25/17 History QUEtiapine [SEROquel] 100 mg PO HS 10/28/17 10/28/17 Unknown History ALPRAZolam [Xanax TAB] 0.5 mg PO BID PRN #10 tablet 11/02/17 Unknown Rx Albuterol Mdi (or & Nicu Only) 2 puff IH QID PRN #1 inhalation 11/02/17 Unknown Rx [ProAir HFA Inhaler] Azithromycin [Zithromax TAB] 500 mg PO QDAY #5 tablet 11/02/17 Unknown Rx Fluticasone/Salmeterol [Advair 1 puff IH BID #1 disk.w.dev 11/02/17 Unknown Rx Diskus 250-50 mcg] Metoprolol [Lopressor TAB] 12.5 mg PO BID #60 tablet 11/02/17 Unknown Rx Pantoprazole [Protonix TAB] 40 mg PO BID #60 tablet 11/02/17 Unknown Rx Prednisone [predniSONE 10 mg 10 mg PO .TAPER #1 tab.ds.pk 11/02/17 Unknown Rx (6-Day Pack, 21 Tabs)] Active Meds: Active Medications Albuterol (Albuterol 8.5 Gm Mdi Inhalation) 2 puff IH QID PRN PRN Reason: Shortness Of Breath Albuterol/Ipratropium (Ipratropium/Albuterol Sulfate 3 Ml Ampul.Neb) 1 ampul IH TIDRT [facility] Last Admin: 10/30/20 15:12 Dose: 1 ampul Documented by: Alprazolam (Alprazolam 0.5 Mg Tab) 0.5 mg PO BID PRN PRN Reason: Anxiety Arformoterol Tartrate (Arformoterol 15 Mcg/2 Ml Nebu) 15 mcg IH Q12HRT [facility] Last Admin: 10/30/20 08:52 Dose: 15 mcg Documented by: Azithromycin (Azithromycin 250 Mg Tab) 500 mg PO QDAY [facility]; Protocol Stop: 11/02/20 10:01 Last Admin: 10/30/20 09:33 Dose: 500 mg Documented by: Budesonide (Budesonide 0.5 Mg/2 Ml Nebu) 0.5 mg IH BIDRT [facility] Last Admin: 10/30/20 08:52 Dose: 0.5 mg Documented by: Citalopram Hydrobromide (Citalopram 20 Mg Tab) 40 mg PO DAILY [facility] Last Admin: 10/30/20 09:33 Dose: 40 mg Documented by: Fentanyl (Fentanyl 100 Mcg/2 Ml Inj) 50 mcg IV Q2H PRN PRN Reason: Pain, Mild (1-3) Last Admin: 10/29/20 16:56 Dose: 50 mcg Documented by: Hydrophilic Ointment (Lip Therapy Vaseline) 1 applic TP Q2HR PRN PRN Reason: Dry Lips Propofol (Diprivan 10 Mg/Ml) 1,000 mg in 100 mls @ 2.994 mls/hr IV TITR AMNA; P rotocol Last Admin: 10/30/20 12:49 Dose: 40 mcg/kg/min, 23.952 mls/hr Documented by: Sodium Chloride (Nacl 0.9% 500 Ml) 500 mls @ 0 mls/hr IV ONCE NR Stop: 10/30/20 23:59 Insulin Human Lispro (Insulin Lispro 100 Unit/Ml) 0 unit SUB-Q Q6HR [facility]; Protocol Last Admin: 10/30/20 12:30 Dose: 4 unit Documented by: Lorazepam (Lorazepam 2 Mg/Ml Vial) 1 mg IV Q4H PRN PRN Reason: Agitation Last Admin: 10/30/20 01:05 Dose: 1 mg Documented by: Losartan Potassium (Losartan 50 Mg Tab) 50 mg PO QDAY [facility] Last Admin: 10/30/20 09:34 Dose: 50 mg Documented by: Methylprednisolone Sodium Succinate (Methylprednisolone Sod Succinate 125 Mg/2 Ml Inj) 80 mg IV Q8HR [facility] Last Admin: 10/30/20 13:30 Dose: 80 mg Documented by: Metoprolol Tartrate (Metoprolol Tartrate 25 Mg Tab) 12.5 mg PO BID [facility] Last Admin: 10/30/20 09:34 Dose: 12.5 mg Documented by: Multi-Ingred Cream/Lotion/Oil/Oint (Mineral Oil/Petrolatum, White Ophth Oint 3.5 Gm) 1 applic OU Q4HR PRN PRN Reason: Dry Eye(s) Pantoprazole Sodium (Pantoprazole 40 Mg Inj) 40 mg IV BID@0600,1800 [facility] Last Admin: 10/30/20 05:24 Dose: 40 mg Documented by: Pravastatin Sodium (Pravastatin 40 Mg Tab) 40 mg PO QHS [facility] Last Admin: 10/29/20 22:12 Dose: 40 mg Documented by: Sodium Chloride (Sodium Chloride 0.9% 10 Ml Flush Syringe) 10 ml IV BID AMNA Last Admin: 10/30/20 09:36 Dose: 10 ml Documented by: Sodium Chloride (Sodium Chloride 0.9% 10 Ml Flush Syringe) 10 ml IV PRN PRN PRN Reason: LINE FLUSH Exam - Constitutional Vitals: Temp Pulse Resp BP Pulse Ox 97.6 F 105 H 19 148/87 90 10/30/20 10:46 10/30/20 16:05 10/30/20 15:30 10/30/20 16:05 10/30/20 16:05 General appearance: Present: no acute distress, other (Intubated, on ventilator) - EENT Eyes: Present: PERRL, EOM intact - Respiratory Respiratory effort: normal Respiratory: bilateral: CTA (anteriorly) - Cardiovascular Rhythm: regular Heart Sounds: Present: S1 & S2 - Extremities Extremities: No edema - Abdominal General gastrointestinal: Present: soft, non-tender, other (Well-healed vertical midline incision) Results - Labs CBC & Chem 7: 10/30/20 06:13 10/30/20 06:13 Labs: Abnormal lab results 10/29/20 10/29/20 10/29/20 Range/Units 00:20 12:12 17:50 WBC (4.5-11.0) K/mm3 RBC (3.65-5.03) M/mm3 Hgb (10.1-14.3) gm/dl Hct (30.3-42.9) % MCV (79-97) fl MCH (28-32) pg MCHC (30-34) % RDW (13.2-15.2) % Seg Neuts % (Manual) (40.0-70.0) % Lymphocytes % (Manual) (13.4-35.0) % Nucleated RBC % (0.0-0.9) % Seg Neutrophils # Man (1.8-7.7) K/mm3 Lymphocytes # (Manual) (1.2-5.4) K/mm3 POC ABG pO2 (83-108) mmHg ABG Hemoglobin (12.0-17.5) ABG Oxyhemoglobin (94-98) ABG Potassium (3.40-4.50) mmol/L ABG Chloride (98-107) mmol/L ABG Glucose (65-95) mg/dL Potassium (3.6-5.0) mmol/L Chloride (98-107) mmol/L BUN (7-17) mg/dL Glucose (65-100) mg/dL POC Glucose 313 H 201 H (70-105) mg/dL Calcium (8.4-10.2) mg/dL Lactate Dehydrogenase (91-180) units/L Arterial Blood Glucose (65-95) mg/dL Arterial Blood Ionized Calcium (4.6-5.3) mg/dL Crossmatch See Detail 10/29/20 10/29/20 10/30/20 Range/Units 18:37 23:14 04:36 WBC (4.5-11.0) K/mm3 RBC (3.65-5.03) M/mm3 Hgb (10.1-14.3) gm/dl Hct (30.3-42.9) % MCV (79-97) fl MCH (28-32) pg MCHC (30-34) % RDW (13.2-15.2) % Seg Neuts % (Manual) (40.0-70.0) % Lymphocytes % (Manual) (13.4-35.0) % Nucleated RBC % (0.0-0.9) % Seg Neutrophils # Man (1.8-7.7) K/mm3 Lymphocytes # (Manual) (1.2-5.4) K/mm3 POC ABG pO2 68.2 L (83-108) mmHg ABG Hemoglobin 6.6 L (12.0-17.5) ABG Oxyhemoglobin 91.9 L (94-98) ABG Potassium 5.1 H (3.40-4.50) mmol/L ABG Chloride 109.0 H (98-107) mmol/L ABG Glucose 236 H (65-95) mg/dL Potassium (3.6-5.0) mmol/L Chloride (98-107) mmol/L BUN (7-17) mg/dL Glucose (65-100) mg/dL POC Glucose 188 H (70-105) mg/dL Calcium (8.4-10.2) mg/dL Lactate Dehydrogenase 355 H (91-180) units/L Arterial Blood Glucose 236 H (65-95) mg/dL Arterial Blood Ionized Calcium 4.4 L (4.6-5.3) mg/dL Crossmatch 10/30/20 10/30/20 10/30/20 Range/Units 05:13 06:13 06:13 WBC 12.9 H (4.5-11.0) K/mm3 RBC 3.23 L (3.65-5.03) M/mm3 Hgb 5.8 L* (10.1-14.3) gm/dl Hct 20.2 L (30.3-42.9) % MCV 63 L (79-97) fl MCH 18 L (28-32) pg MCHC 29 L (30-34) % RDW 40.0 H (13.2-15.2) % Seg Neuts % (Manual) 92.0 H (40.0-70.0) % Lymphocytes % (Manual) 3.0 L (13.4-35.0) % Nucleated RBC % 2.0 H (0.0-0.9) % Seg Neutrophils # Man 11.9 H (1.8-7.7) K/mm3 Lymphocytes # (Manual) 0.4 L (1.2-5.4) K/mm3 POC ABG pO2 (83-108) mmHg ABG Hemoglobin (12.0-17.5) ABG Oxyhemoglobin (94-98) ABG Potassium (3.40-4.50) mmol/L ABG Chloride (98-107) mmol/L ABG Glucose (65-95) mg/dL Potassium 5.2 H (3.6-5.0) mmol/L Chloride 108.4 H (98-107) mmol/L BUN 28 H (7-17) mg/dL Glucose 244 H (65-100) mg/dL POC Glucose 221 H (70-105) mg/dL Calcium 8.1 L (8.4-10.2) mg/dL Lactate Dehydrogenase (91-180) units/L Arterial Blood Glucose (65-95) mg/dL Arterial Blood Ionized Calcium (4.6-5.3) mg/dL Crossmatch Assessment and Plan 1. Profound microcytic, iron deficiency anemia -etiology unclear. This is either due to chronic blood loss, or due to iron malabsorption. Stool is negative for occult blood on this admission. There is no indication of darrel GI blood loss, and patient has had iron deficiency anemia at least this profound for over 2 years. At this point, there are no plans for imminent endoscopic evaluation. Once patient is stable and extubated, further history can be obtained as to duration of anemia and any evaluation done in the intervening 2 years since last admission. Then, plans can be made as to whether or not to do endoscopic and colonoscopic evaluation as well as pill camera evaluation, versus IV iron infusion and close monitoring. -Empiric daily PPI -Monitor hemoglobin and transfuse as needed -Give IV iron infusion if available
[2020-10-30 17:26] LABS: Hematocrit 26.1 % (30.3-42.9); Hemoglobin 7.8 gm/dl (10.1-14.3)
--- NOTE | 2020-10-30 20:55 | Cat Scan Report ---
CT angio chest INDICATION / CLINICAL INFORMATION: Shortness of Breath, Anemia, C.O.P.D., elevated D-dimer. TECHNIQUE: Axial CT images were obtained after injection of Omnipaque 350, 100 cc IV contrast using CTA protocol . 3 plane MIP / 3D reconstructions were produced. All CT scans at this location are performed using C T dose reduction for ALARA by means of automated exposure control. COMPARISON: Chest x-ray earlier the same day. FINDINGS: Small right-sided effusion has associated atelectasis. Moderate atelectasis left base. There is incre ased interstitial markings bilaterally likely representing edema. Mild patchy groundglass opacity is seen at the lingula. Evaluation the mediastinum demonstrates prominent nodular enlargement of the thyroid gland left great er than right which is partially imaged. No suspicious mediastinal mass or adenopathy. The heart is e nlarged. Imaging of the upper abdomen demonstrates partially imaged left renal cyst. Negative for aneurysm, dissection or pulmonary embolus. Coronary artery calcification is present. IMPRESSION: 1. Negative for pulmonary embolus. 2. Right basilar effusion and bibasilar atelectasis. 3. Mild edema. 4. Possible early pneumonia left base. 5. Prominent nodular enlargement of the thyroid left greater than right. Signer Name: Arnaldo Brewster MD Signed: 10/30/2020 8:51 PM Workstation Name: [id number]
[2020-10-30] MEDS: fentaNYL 100 MCG/2 ML INJ IV PRN (22:33)
[2020-10-30] MEDS: PRAVASTATIN 40 MG TAB PO SCH (22:40)
[2020-10-31] MEDS ORDERED: SODIUM CHLORIDE 0.9% 500 ML 500 ML IV ONE (02:45)
[2020-10-31] MEDS: PANTOPRAZOLE 40 MG INJ IV SCH (05:52)
[2020-10-31] MEDS: methylPREDNISolone Sod Succinate 125 MG/2 ML INJ IV SCH (05:52)
[2020-10-31] MEDS: INSULIN LISPRO 100 UNIT/ML SUB-Q SCH ×2 (05:53→13:15)
[2020-10-31] MEDS: METOPROLOL TARTRATE 25 MG TAB PO SCH ×3 (06:00→21:06)
[2020-10-31 07:22] LABS: Alanine Aminotransferase 19 units/L (7-56); Albumin 3.8 g/dL (3.9-5); BUN/Creatinine Ratio 37; Blood Urea Nitrogen 33 mg/dL (7-17); Calcium 8.4 mg/dL (8.4-10.2); Hemolysis Index 0
[2020-10-31 07:51] LABS: Hemoglobin 7.8 gm/dl (10.1-14.3); Red Blood Count 4.06 M/mm3 (3.65-5.03)
[2020-10-31 07:52] LABS: Hematocrit 26.8 % (30.3-42.9); Mean Corpuscular HGB Conc 29 % (30-34); Mean Corpuscular Volume 66 fl (79-97); Platelet Count 392 K/mm3 (140-440); Red Cell Distribution Width 39.1 % (13.2-15.2)
[2020-10-31] MEDS: ARFORMOTEROL 15 MCG/2 ML NEBU IH SCH ×2 (08:25→20:14)
[2020-10-31] MEDS: IPRATROPIUM/ALBUTEROL SULFATE 3 ML AMPUL.NEB IH SCH ×3 (08:26→20:14)
[2020-10-31] MEDS: BUDESONIDE 0.5 MG/2 ML NEBU IH SCH ×2 (08:26→20:14)
[2020-10-31 08:34] LABS: Total Cells Counted 100
[2020-10-31 08:35] LABS: Anisocytosis 3+; Hypochromasia 2+; Ovalocytes Few; Poikilocytosis 1+; Tear Drop Cells Few
[2020-10-31 08:36] LABS: Platelet Estimate Consistent w Auto
[2020-10-31] MEDS: LANSOPRAZOLE 30 MG SOLUTAB FEEDTUBE SCH (09:43)
[2020-10-31] MEDS: LOSARTAN 50 MG TAB PO SCH (09:44)
[2020-10-31] MEDS: CITALOPRAM 20 MG TAB PO SCH (09:45)
--- NOTE | 2020-10-31 11:03 | Progress Note ---
Assessment and Plan 75 y/o female with acute respiratory failure secondary to altered mental state and hypoxemia, TRALI vs TACO (Transfusion Associated Circulatory Overload). 10/31/20: Will extubate today. Follow up any new GI recs. No further lasix as of right now. Once extubated, should be stable for transfer to [facility] [place]metry. Stopped steroids. 1. Pulm- Given need for more blood, will hold on weaning for today and allow patient to be transfused up to goal. Continue sedation with diprovan. will need triglycerides checked either tomorrow or Wednesday if still intubated. Continue high peeps for now, and will start to wean once H/H at [place]. Appreciate Heme evaluation. Lasix given again today and will likely give again tonight. 2. GI-Ir Def anemia, chronic in nature and prior history of Gastric AVM's. No evidence of active bleeding at present. Await GI evaluation. Agree with GI evaluation. Ok with feeding patient unless GI has plans to scope in the near future. 3. Heme-anemia. Appreciate recs. Steroids started by heme so defer them on duration. Patient is not actively in COPD exacerbation. 4. Hold on DVT prophylaxis with drugs, SCDs only. Guarded prognosis CCT 31 minutes Subjective Date of service: 10/31/20 Interval history: No acute events. Awake and alert off sedation. HgB is stable and now acute plans for intervention in regards to chronic anemia. Objective Vital Signs - 12hr 10/30/20 10/30/20 10/30/20 23:11 23:21 23:30 Temperature Pulse Rate 93 H 93 H 96 H Pulse Rate [ Bilateral] Pulse Rate [ Right Dorsalis Pedis] Pulse Rate [ Throughout] Respiratory 11 L 13 18 Rate Respiratory Rate [Bilateral ] Respiratory Rate [ Throughout] Blood Pressure 152/73 135/65 135/65 O2 Sat by Pulse 98 98 97 Oximetry 10/30/20 10/30/20 10/30/20 23:40 23:46 23:51 Temperature Pulse Rate 88 90 86 Pulse Rate [ Bilateral] Pulse Rate [ Right Dorsalis Pedis] Pulse Rate [ Throughout] Respiratory 19 19 Rate Respiratory Rate [Bilateral ] Respiratory Rate [ Throughout] Blood Pressure 144/66 144/66 O2 Sat by Pulse 98 97 99 Oximetry 10/30/20 10/31/20 10/31/20 23:53 00:00 00:11 Temperature 98.2 F Pulse Rate 86 83 Pulse Rate [ Bilateral] Pulse Rate [ 85 Right Dorsalis Pedis] Pulse Rate [ Throughout] Respiratory 18 16 Rate Respiratory Rate [Bilateral ] Respiratory Rate [ Throughout] Blood Pressure 143/63 143/63 O2 Sat by Pulse 100 99 Oximetry 10/31/20 10/31/20 10/31/20 00:21 00:30 00:41 Temperature Pulse Rate 86 83 85 Pulse Rate [ Bilateral] Pulse Rate [ Right Dorsalis Pedis] Pulse Rate [ Throughout] Respiratory 19 18 17 Rate Respiratory Rate [Bilateral ] Respiratory Rate [ Throughout] Blood Pressure 142/65 139/61 139/61 O2 Sat by Pulse 99 97 99 Oximetry 10/31/20 10/31/20 10/31/20 00:51 01:00 01:11 Temperature Pulse Rate 84 84 87 Pulse Rate [ Bilateral] Pulse Rate [ Right Dorsalis Pedis] Pulse Rate [ Throughout] Respiratory 18 13 12 Rate Respiratory Rate [Bilateral ] Respiratory Rate [ Throughout] Blood Pressure 143/66 137/64 137/64 O2 Sat by Pulse 98 95 97 Oximetry 10/31/20 10/31/20 10/31/20 01:21 01:31 01:41 Temperature Pulse Rate 88 85 83 Pulse Rate [ Bilateral] Pulse Rate [ Right Dorsalis Pedis] Pulse Rate [ Throughout] Respiratory 19 18 18 Rate Respiratory Rate [Bilateral ] Respiratory Rate [ Throughout] Blood Pressure 145/65 135/59 135/59 O2 Sat by Pulse 96 94 97 Oximetry 10/31/20 10/31/20 10/31/20 01:51 02:00 02:11 Temperature Pulse Rate 83 82 84 Pulse Rate [ Bilateral] Pulse Rate [ Right Dorsalis Pedis] Pulse Rate [ Throughout] Respiratory 19 18 11 L Rate Respiratory Rate [Bilateral ] Respiratory Rate [ Throughout] Blood Pressure 133/69 137/60 137/60 O2 Sat by Pulse 97 96 97 Oximetry 10/31/20 10/31/20 10/31/20 02:21 02:31 02:41 Temperature 98.7 F Pulse Rate 88 88 88 Pulse Rate [ Bilateral] Pulse Rate [ Right Dorsalis Pedis] Pulse Rate [ Throughout] Respiratory 19 14 16 Rate Respiratory Rate [Bilateral ] Respiratory Rate [ Throughout] Blood Pressure 142/68 140/70 140/70 O2 Sat by Pulse 96 93 96 Oximetry 10/31/20 10/31/20 10/31/20 02:51 03:00 03:11 Temperature Pulse Rate 89 90 91 H Pulse Rate [ Bilateral] Pulse Rate [ Right Dorsalis Pedis] Pulse Rate [ Throughout] Respiratory 19 18 18 Rate Respiratory Rate [Bilateral ] Respiratory Rate [ Throughout] Blood Pressure 144/66 138/66 138/66 O2 Sat by Pulse 95 93 96 Oximetry 10/31/20 10/31/20 10/31/20 03:21 03:30 03:41 Temperature Pulse Rate 90 90 90 Pulse Rate [ Bilateral] Pulse Rate [ Right Dorsalis Pedis] Pulse Rate [ Throughout] Respiratory 24 18 18 Rate Respiratory Rate [Bilateral ] Respiratory Rate [ Throughout] Blood Pressure 139/64 149/72 149/72 O2 Sat by Pulse 97 94 96 Oximetry 10/31/20 10/31/20 10/31/20 03:51 04:00 04:04 Temperature 98.8 F Pulse Rate 90 88 86 Pulse Rate [ Bilateral] Pulse Rate [ 85 Right Dorsalis Pedis] Pulse Rate [ Throughout] Respiratory 11 L 18 Rate Respiratory Rate [Bilateral ] Respiratory Rate [ Throughout] Blood Pressure 151/72 149/72 149/72 O2 Sat by Pulse 97 100 97 Oximetry 10/31/20 10/31/20 10/31/20 04:11 04:21 04:31 Temperature Pulse Rate 87 Pulse Rate [ Bilateral] Pulse Rate [ Right Dorsalis Pedis] Pulse Rate [ Throughout] Respiratory 12 Rate Respiratory Rate [Bilateral ] Respiratory Rate [ Throughout] Blood Pressure 149/72 149/72 149/72 O2 Sat by Pulse 98 98 98 Oximetry 10/31/20 10/31/20 10/31/20 04:46 04:50 04:51 Temperature Pulse Rate 88 87 Pulse Rate [ Bilateral] Pulse Rate [ Right Dorsalis Pedis] Pulse Rate [ Throughout] Respiratory 21 Rate Respiratory Rate [Bilateral ] Respiratory Rate [ Throughout] Blood Pressure 149/73 149/73 O2 Sat by Pulse 100 98 Oximetry 10/31/20 10/31/20 10/31/20 05:00 05:11 05:21 Temperature Pulse Rate 90 88 91 H Pulse Rate [ Bilateral] Pulse Rate [ Right Dorsalis Pedis] Pulse Rate [ Throughout] Respiratory 13 11 L 17 Rate Respiratory Rate [Bilateral ] Respiratory Rate [ Throughout] Blood Pressure 156/68 156/68 156/77 O2 Sat by Pulse 96 98 98 Oximetry 10/31/20 10/31/20 10/31/20 05:30 05:41 05:51 Temperature Pulse Rate 90 88 86 Pulse Rate [ Bilateral] Pulse Rate [ Right Dorsalis Pedis] Pulse Rate [ Throughout] Respiratory 24 18 20 Rate Respiratory Rate [Bilateral ] Respiratory Rate [ Throughout] Blood Pressure 154/74 154/74 146/70 O2 Sat by Pulse 95 97 98 Oximetry 10/31/20 10/31/20 10/31/20 06:01 06:11 06:21 Temperature Pulse Rate 86 86 87 Pulse Rate [ Bilateral] Pulse Rate [ Right Dorsalis Pedis] Pulse Rate [ Throughout] Respiratory 16 11 L 13 Rate Respiratory Rate [Bilateral ] Respiratory Rate [ Throughout] Blood Pressure 149/68 149/68 155/73 O2 Sat by Pulse 97 98 98 Oximetry 10/31/20 10/31/20 10/31/20 06:30 06:41 06:51 Temperature Pulse Rate 87 97 H 88 Pulse Rate [ Bilateral] Pulse Rate [ Right Dorsalis Pedis] Pulse Rate [ Throughout] Respiratory 21 17 15 Rate Respiratory Rate [Bilateral ] Respiratory Rate [ Throughout] Blood Pressure 140/75 140/75 151/73 O2 Sat by Pulse 96 98 98 Oximetry 10/31/20 10/31/20 10/31/20 07:00 08:05 08:26 Temperature Pulse Rate 92 H 92 H Pulse Rate [ 96 H Bilateral] Pulse Rate [ Right Dorsalis Pedis] Pulse Rate [ 94 H Throughout] Respiratory 19 Rate Respiratory 20 Rate [Bilateral ] Respiratory 20 Rate [ Throughout] Blood Pressure 157/79 157/79 O2 Sat by Pulse 97 97 Oximetry 10/31/20 10/31/20 10/31/20 09:08 09:43 09:44 Temperature Pulse Rate 96 H 99 H 109 H Pulse Rate [ Bilateral] Pulse Rate [ Right Dorsalis Pedis] Pulse Rate [ Throughout] Respiratory 25 H Rate Respiratory Rate [Bilateral ] Respiratory Rate [ Throughout] Blood Pressure 155/72 164/82 164/82 O2 Sat by Pulse 95 Oximetry Constitutional: no acute distress, appears uncomfortable, other (will wake up with light stimulation) Eyes: non-icteric ENT: other (orally intubated and sedated) Neck: supple Effort: mildly labored Ascultation: Bilateral: diminished breath sounds Percussion: Right: not dull Cardiovascular: regular rate and rhythm Gastrointestinal: normoactive bowel sounds, soft, non-tender Extremities: no edema, pink and warm, pulses normal CBC and BMP: 10/31/20 05:10 10/31/20 05:10 ABG, PT/INR, D-dimer: ABG ABG pH 7.678 (7.320-7.450) H 10/31/20 04:11 POC ABG pCO2 21.7 mmHg (32.0-48.0) L 10/31/20 04:11 ABG pCO2 43.7 mm Hg 10/29/20 10:35 POC ABG pO2 160.9 mmHg (83-108) H 10/31/20 04:11 ABG pO2 68.0 mm Hg (80.0-90.0) L 10/29/20 10:35 POC ABG HCO3 24.9 10/31/20 04:11 ABG O2 Saturation 93.8 % (95.0-99.0) L 10/29/20 10:35 PT/INR, D-dimer PT 16.6 Sec. (12.2-14.9) H 10/28/20 23:25 INR 1.34 (0.87-1.13) H 10/28/20 23:25 D-Dimer 798.02 ng/mlDDU (0-234) H 10/28/20 23:25 Abnormal lab findings: Abnormal Labs 10/28/20 10/28/20 10/28/20 23:25 23:25 23:25 WBC 13.2 H RBC 2.59 L Hgb 3.2 L* Hct 13.2 L* MCV 51 L MCH 12 L MCHC 25 L RDW 24.5 H Plt Count 504 H Seg Neuts % (Manual) 96.0 H Lymphocytes % (Manual) 2.0 L Nucleated RBC % Seg Neutrophils # Man 12.7 H Lymphocytes # (Manual) 0.3 L PT 16.6 H INR 1.34 H D-Dimer 798.02 H ABG pH POC ABG pCO2 POC ABG pO2 ABG pO2 ABG O2 Saturation ABG Base Excess ABG Hemoglobin ABG Oxyhemoglobin ABG Sodium ABG Potassium ABG Chloride ABG Glucose Oxyhemoglobin Potassium 5.2 H Chloride Carbon Dioxide 17 L BUN 30 H Creatinine 1.4 H Glucose 313 H POC Glucose Calcium 8.2 L Lactate Dehydrogenase NT-Pro-B Natriuret Pep 1685 H Albumin Arterial Blood Glucose Arterial Blood Ionized Calcium Crossmatch 10/29/20 10/29/20 10/29/20 00:20 04:24 08:41 WBC RBC Hgb Hct MCV MCH MCHC RDW Plt Count Seg Neuts % (Manual) Lymphocytes % (Manual) Nucleated RBC % Seg Neutrophils # Man Lymphocytes # (Manual) PT INR D-Dimer ABG pH 7.208 L POC ABG pCO2 POC ABG pO2 249.6 H ABG pO2 ABG O2 Saturation ABG Base Excess ABG Hemoglobin 5 L ABG Oxyhemoglobin ABG Sodium 135.1 L ABG Potassium 5.4 H ABG Chloride 108.0 H ABG Glucose 413 H Oxyhemoglobin Potassium Chloride Carbon Dioxide BUN Creatinine Glucose POC Glucose 367 H Calcium Lactate Dehydrogenase NT-Pro-B Natriuret Pep Albumin Arterial Blood Glucose 413 H Arterial Blood Ionized Calcium 4.5 L Crossmatch See Detail 10/29/20 10/29/20 10/29/20 10:35 12:05 12:12 WBC 11.8 H RBC 3.20 L Hgb 5.3 L* Hct 19.0 L* MCV 59 L MCH 17 L MCHC 28 L RDW 38.0 H Plt Count 469 H Seg Neuts % (Manual) 93.0 H Lymphocytes % (Manual) 6.0 L Nucleated RBC % Seg Neutrophils # Man 11.0 H Lymphocytes # (Manual) 0.7 L PT INR D-Dimer ABG pH 7.336 L POC ABG pCO2 POC ABG pO2 ABG pO2 68.0 L ABG O2 Saturation 93.8 L ABG Base Excess -2.7 L ABG Hemoglobin 6.0 L ABG Oxyhemoglobin ABG Sodium ABG Potassium ABG Chloride ABG Glucose Oxyhemoglobin 91.4 L Potassium Chloride Carbon Dioxide BUN Creatinine Glucose POC Glucose 313 H Calcium Lactate Dehydrogenase NT-Pro-B Natriuret Pep Albumin Arterial Blood Glucose Arterial Blood Ionized Calcium Crossmatch 10/29/20 10/29/20 10/29/20 17:50 18:37 23:14 WBC RBC Hgb Hct MCV MCH MCHC RDW Plt Count Seg Neuts % (Manual) Lymphocytes % (Manual) Nucleated RBC % Seg Neutrophils # Man Lymphocytes # (Manual) PT INR D-Dimer ABG pH POC ABG pCO2 POC ABG pO2 ABG pO2 ABG O2 Saturation ABG Base Excess ABG Hemoglobin ABG Oxyhemoglobin ABG Sodium ABG Potassium ABG Chloride ABG Glucose Oxyhemoglobin Potassium Chloride Carbon Dioxide BUN Creatinine Glucose POC Glucose 201 H 188 H Calcium Lactate Dehydrogenase 355 H NT-Pro-B Natriuret Pep Albumin Arterial Blood Glucose Arterial Blood Ionized Calcium Crossmatch 10/30/20 10/30/20 10/30/20 04:36 05:13 06:13 WBC 12.9 H RBC 3.23 L Hgb 5.8 L* Hct 20.2 L MCV 63 L MCH 18 L MCHC 29 L RDW 40.0 H Plt Count Seg Neuts % (Manual) 92.0 H Lymphocytes % (Manual) 3.0 L Nucleated RBC % 2.0 H Seg Neutrophils # Man 11.9 H Lymphocytes # (Manual) 0.4 L PT INR D-Dimer ABG pH POC ABG pCO2 POC ABG pO2 68.2 L ABG pO2 ABG O2 Saturation ABG Base Excess ABG Hemoglobin 6.6 L ABG Oxyhemoglobin 91.9 L ABG Sodium ABG Potassium 5.1 H ABG Chloride 109.0 H ABG Glucose 236 H Oxyhemoglobin Potassium Chloride Carbon Dioxide BUN Creatinine Glucose POC Glucose 221 H Calcium Lactate Dehydrogenase NT-Pro-B Natriuret Pep Albumin Arterial Blood Glucose 236 H Arterial Blood Ionized Calcium 4.4 L Crossmatch 10/30/20 10/30/20 10/30/20 06:13 11:50 17:13 WBC RBC Hgb 7.8 L Hct 26.1 L MCV MCH MCHC RDW Plt Count Seg Neuts % (Manual) Lymphocytes % (Manual) Nucleated RBC % Seg Neutrophils # Man Lymphocytes # (Manual) PT INR D-Dimer ABG pH POC ABG pCO2 POC ABG pO2 ABG pO2 ABG O2 Saturation ABG Base Excess ABG Hemoglobin ABG Oxyhemoglobin ABG Sodium ABG Potassium ABG Chloride ABG Glucose Oxyhemoglobin Potassium 5.2 H Chloride 108.4 H Carbon Dioxide BUN 28 H Creatinine Glucose 244 H POC Glucose 226 H Calcium 8.1 L Lactate Dehydrogenase NT-Pro-B Natriuret Pep Albumin Arterial Blood Glucose Arterial Blood Ionized Calcium Crossmatch 10/30/20 10/30/20 10/31/20 17:57 23:20 04:11 WBC RBC Hgb Hct MCV MCH MCHC RDW Plt Count Seg Neuts % (Manual) Lymphocytes % (Manual) Nucleated RBC % Seg Neutrophils # Man Lymphocytes # (Manual) PT INR D-Dimer ABG pH 7.678 H POC ABG pCO2 21.7 L POC ABG pO2 160.9 H ABG pO2 ABG O2 Saturation ABG Base Excess ABG Hemoglobin 7.4 L ABG Oxyhemoglobin ABG Sodium ABG Potassium 4.7 H ABG Chloride 108.0 H ABG Glucose 260 H Oxyhemoglobin Potassium Chloride Carbon Dioxide BUN Creatinine Glucose POC Glucose 232 H 210 H Calcium Lactate Dehydrogenase NT-Pro-B Natriuret Pep Albumin Arterial Blood Glucose 260 H Arterial Blood Ionized Calcium 4.4 L Crossmatch 10/31/20 10/31/20 05:10 05:10 WBC 15.6 H RBC Hgb 7.8 L Hct 26.8 L MCV 66 L MCH 19 L MCHC 29 L RDW 39.1 H Plt Count Seg Neuts % (Manual) 97.0 H Lymphocytes % (Manual) 2.0 L Nucleated RBC % 3.0 H Seg Neutrophils # Man 15.1 H Lymphocytes # (Manual) 0.3 L PT INR D-Dimer ABG pH POC ABG pCO2 POC ABG pO2 ABG pO2 ABG O2 Saturation ABG Base Excess ABG Hemoglobin ABG Oxyhemoglobin ABG Sodium ABG Potassium ABG Chloride ABG Glucose Oxyhemoglobin Potassium Chloride Carbon Dioxide BUN 33 H Creatinine Glucose 259 H POC Glucose Calcium Lactate Dehydrogenase NT-Pro-B Natriuret Pep Albumin 3.8 L Arterial Blood Glucose Arterial Blood Ionized Calcium Crossmatch
--- NOTE | 2020-10-31 17:30 | Progress Note ---
Assessment and Plan 1. Profound microcytic, iron deficiency anemia -etiology unclear. This is either due to chronic blood loss, or due to iron malabsorption. Stool is negative for occult blood on this admission. There is no indication of darrel GI blood loss, and patient has had iron deficiency anemia at least this profound for over 2 years. At this point, there are no plans for imminent endoscopic evaluation. Once patient is stable and extubated, further history can be obtained as to duration of anemia and any evaluation done in the intervening 2 y ears since last admission. Then, plans can be made as to whether or not to do endoscopic and colonoscopic evaluation as well as pill camera evaluation, versus IV iron infusion and close monitoring. -Empiric daily PPI -Monitor hemoglobin and transfuse as needed -Give IV iron infusion if available Subjective Date of service: 10/31/20 Interval history: Pt intubated, stable. Improving. No GI bleed. Objective - Constitutional Vitals: Vital Signs - 12hr 10/31/20 10/31/20 10/31/20 05:30 05:41 05:51 Pulse Rate 90 88 86 Pulse Rate [ Bilateral] Pulse Rate [ From Monitor] Pulse Rate [ Throughout] Respiratory 24 18 20 Rate Respiratory Rate [Back] Respiratory Rate [Bilateral Generalized Joint] Respiratory Rate [Bilateral ] Respiratory Rate [ Throughout] Blood Pressure 154/74 154/74 146/70 O2 Sat by Pulse 95 97 98 Oximetry 10/31/20 10/31/20 10/31/20 06:01 06:11 06:21 Pulse Rate 86 86 87 Pulse Rate [ Bilateral] Pulse Rate [ From Monitor] Pulse Rate [ Throughout] Respiratory 16 11 L 13 Rate Respiratory Rate [Back] Respiratory Rate [Bilateral Generalized Joint] Respiratory Rate [Bilateral ] Respiratory Rate [ Throughout] Blood Pressure 149/68 149/68 155/73 O2 Sat by Pulse 97 98 98 Oximetry 10/31/20 10/31/20 10/31/20 06:30 06:41 06:51 Pulse Rate 87 97 H 88 Pulse Rate [ Bilateral] Pulse Rate [ From Monitor] Pulse Rate [ Throughout] Respiratory 21 17 15 Rate Respiratory Rate [Back] Respiratory Rate [Bilateral Generalized Joint] Respiratory Rate [Bilateral ] Respiratory Rate [ Throughout] Blood Pressure 140/75 140/75 151/73 O2 Sat by Pulse 96 98 98 Oximetry 10/31/20 10/31/20 10/31/20 07:00 08:00 08:05 Pulse Rate 92 H 91 H 92 H Pulse Rate [ Bilateral] Pulse Rate [ 91 H From Monitor] Pulse Rate [ Throughout] Respiratory 19 23 Rate Respiratory Rate [Back] Respiratory Rate [Bilateral Generalized Joint] Respiratory Rate [Bilateral ] Respiratory Rate [ Throughout] Blood Pressure 157/79 147/65 157/79 O2 Sat by Pulse 97 100 97 Oximetry 10/31/20 10/31/20 10/31/20 08:26 09:00 09:08 Pulse Rate 86 96 H Pulse Rate [ 96 H Bilateral] Pulse Rate [ From Monitor] Pulse Rate [ 94 H Throughout] Respiratory 17 25 H Rate Respiratory Rate [Back] Respiratory Rate [Bilateral Generalized Joint] Respiratory 20 Rate [Bilateral ] Respiratory 20 Rate [ Throughout] Blood Pressure 148/70 155/72 O2 Sat by Pulse 93 95 Oximetry 10/31/20 10/31/20 10/31/20 09:43 09:44 10:01 Pulse Rate 99 H 109 H 99 H Pulse Rate [ Bilateral] Pulse Rate [ From Monitor] Pulse Rate [ Throughout] Respiratory 22 Rate Respiratory Rate [Back] Respiratory Rate [Bilateral Generalized Joint] Respiratory Rate [Bilateral ] Respiratory Rate [ Throughout] Blood Pressure 164/82 164/82 170/85 O2 Sat by Pulse 94 Oximetry 10/31/20 10/31/20 10/31/20 11:01 11:26 12:00 Pulse Rate 99 H 99 H Pulse Rate [ Bilateral] Pulse Rate [ 99 H From Monitor] Pulse Rate [ Throughout] Respiratory 19 27 H Rate Respiratory Rate [Back] Respiratory Rate [Bilateral Generalized Joint] Respiratory Rate [Bilateral ] Respiratory Rate [ Throughout] Blood Pressure 155/81 O2 Sat by Pulse 92 99 94 Oximetry 10/31/20 10/31/20 10/31/20 12:01 13:01 13:05 Pulse Rate 99 H 100 H Pulse Rate [ 96 H Bilateral] Pulse Rate [ From Monitor] Pulse Rate [ 95 H Throughout] Respiratory 29 H 28 H Rate Respiratory Rate [Back] Respiratory Rate [Bilateral Generalized Joint] Respiratory 20 Rate [Bilateral ] Respiratory 20 Rate [ Throughout] Blood Pressure 173/98 154/60 O2 Sat by Pulse 91 93 Oximetry 10/31/20 10/31/20 10/31/20 14:01 15:01 16:00 Pulse Rate 102 H 90 103 H Pulse Rate [ Bilateral] Pulse Rate [ From Monitor] Pulse Rate [ Throughout] Respiratory 21 19 25 H Rate Respiratory 23 Rate [Back] Respiratory 23 Rate [Bilateral Generalized Joint] Respiratory Rate [Bilateral ] Respiratory Rate [ Throughout] Blood Pressure 154/60 154/60 169/107 O2 Sat by Pulse 92 95 89 Oximetry General appearance: Present: no acute distress, other (intubated) - EENT Eyes: PERRL, EOM intact - Gastrointestinal General gastrointestinal: Present: soft, non-tender - Labs CBC & Chem 7: 10/31/20 05:10 10/31/20 05:10 Labs: Abnormal lab results 10/29/20 10/30/20 10/30/20 Range/Units 00:20 11:50 17:57 WBC (4.5-11.0) K/mm3 Hgb (10.1-14.3) gm/dl Hct (30.3-42.9) % MCV (79-97) fl MCH (28-32) pg MCHC (30-34) % RDW (13.2-15.2) % Seg Neuts % (Manual) (40.0-70.0) % Lymphocytes % (Manual) (13.4-35.0) % Nucleated RBC % (0.0-0.9) % Seg Neutrophils # Man (1.8-7.7) K/mm3 Lymphocytes # (Manual) (1.2-5.4) K/mm3 ABG pH (7.320-7.450) POC ABG pCO2 (32.0-48.0) mmHg POC ABG pO2 (83-108) mmHg ABG Hemoglobin (12.0-17.5) ABG Potassium (3.40-4.50) mmol/L ABG Chloride (98-107) mmol/L ABG Glucose (65-95) mg/dL BUN (7-17) mg/dL Glucose (65-100) mg/dL POC Glucose 226 H 232 H (70-105) mg/dL Albumin (3.9-5) g/dL Arterial Blood Glucose (65-95) mg/dL Arterial Blood Ionized Calcium (4.6-5.3) mg/dL Crossmatch See Detail 10/30/20 10/31/20 10/31/20 Range/Units 23:20 04:11 05:02 WBC (4.5-11.0) K/mm3 Hgb (10.1-14.3) gm/dl Hct (30.3-42.9) % MCV (79-97) fl MCH (28-32) pg MCHC (30-34) % RDW (13.2-15.2) % Seg Neuts % (Manual) (40.0-70.0) % Lymphocytes % (Manual) (13.4-35.0) % Nucleated RBC % (0.0-0.9) % Seg Neutrophils # Man (1.8-7.7) K/mm3 Lymphocytes # (Manual) (1.2-5.4) K/mm3 ABG pH 7.678 H (7.320-7.450) POC ABG pCO2 21.7 L (32.0-48.0) mmHg POC ABG pO2 160.9 H (83-108) mmHg ABG Hemoglobin 7.4 L (12.0-17.5) ABG Potassium 4.7 H (3.40-4.50) mmol/L ABG Chloride 108.0 H (98-107) mmol/L ABG Glucose 260 H (65-95) mg/dL BUN (7-17) mg/dL Glucose (65-100) mg/dL POC Glucose 210 H 255 H (70-105) mg/dL Albumin (3.9-5) g/dL Arterial Blood Glucose 260 H (65-95) mg/dL Arterial Blood Ionized Calcium 4.4 L (4.6-5.3) mg/dL Crossmatch 10/31/20 10/31/20 10/31/20 Range/Units 05:10 05:10 11:50 WBC 15.6 H (4.5-11.0) K/mm3 Hgb 7.8 L (10.1-14.3) gm/dl Hct 26.8 L (30.3-42.9) % MCV 66 L (79-97) fl MCH 19 L (28-32) pg MCHC 29 L (30-34) % RDW 39.1 H (13.2-15.2) % Seg Neuts % (Manual) 97.0 H (40.0-70.0) % Lymphocytes % (Manual) 2.0 L (13.4-35.0) % Nucleated RBC % 3.0 H (0.0-0.9) % Seg Neutrophils # Man 15.1 H (1.8-7.7) K/mm3 Lymphocytes # (Manual) 0.3 L (1.2-5.4) K/mm3 ABG pH (7.320-7.450) POC ABG pCO2 (32.0-48.0) mmHg POC ABG pO2 (83-108) mmHg ABG Hemoglobin (12.0-17.5) ABG Potassium (3.40-4.50) mmol/L ABG Chloride (98-107) mmol/L ABG Glucose (65-95) mg/dL BUN 33 H (7-17) mg/dL Glucose 259 H (65-100) mg/dL POC Glucose 259 H (70-105) mg/dL Albumin 3.8 L (3.9-5) g/dL Arterial Blood Glucose (65-95) mg/dL Arterial Blood Ionized Calcium (4.6-5.3) mg/dL Crossmatch 10/31/20 Range/Units 17:11 WBC (4.5-11.0) K/mm3 Hgb (10.1-14.3) gm/dl Hct (30.3-42.9) % MCV (79-97) fl MCH (28-32) pg MCHC (30-34) % RDW (13.2-15.2) % Seg Neuts % (Manual) (40.0-70.0) % Lymphocytes % (Manual) (13.4-35.0) % Nucleated RBC % (0.0-0.9) % Seg Neutrophils # Man (1.8-7.7) K/mm3 Lymphocytes # (Manual) (1.2-5.4) K/mm3 ABG pH (7.320-7.450) POC ABG pCO2 (32.0-48.0) mmHg POC ABG pO2 (83-108) mmHg ABG Hemoglobin (12.0-17.5) ABG Potassium (3.40-4.50) mmol/L ABG Chloride (98-107) mmol/L ABG Glucose (65-95) mg/dL BUN (7-17) mg/dL Glucose (65-100) mg/dL POC Glucose 203 H (70-105) mg/dL Albumin (3.9-5) g/dL Arterial Blood Glucose (65-95) mg/dL Arterial Blood Ionized Calcium (4.6-5.3) mg/dL Crossmatch Medications & Allergies - Medications Allergies/Adverse Reactions: Allergies No Known Allergies Allergy (Verified 12/10/14 15:18) Home Medications: Home Medications Medication Instructions Recorded Confirmed Last Taken Type Citalopram Hydrobromide 40 mg PO DAILY 03/10/17 10/27/17 10/25/17 History [Citalopram HBr] Gabapentin [Neurontin] 600 mg PO Q8H 03/10/17 10/27/17 10/25/17 History Acetaminophen/Diphenhydramine 1 each PO DAILY 10/27/17 10/27/17 10/25/17 History [Tylenol Pm Ex-Strength Caplet] Losartan [Cozaar] 50 mg PO QDAY 10/27/17 10/27/17 10/25/17 History Pravastatin [Pravachol] 40 mg PO QHS 10/27/17 10/27/17 10/25/17 History QUEtiapine [SEROquel] 100 mg PO HS 10/28/17 10/28/17 Unknown History ALPRAZolam [Xanax TAB] 0.5 mg PO BID PRN #10 tablet 11/02/17 Unknown Rx Albuterol Mdi (or & Nicu Only) 2 puff IH QID PRN #1 inhalation 11/02/17 Unknown Rx [ProAir HFA Inhaler] Azithromycin [Zithromax TAB] 500 mg PO QDAY #5 tablet 11/02/17 Unknown Rx Fluticasone/Salmeterol [Advair 1 puff IH BID #1 disk.w.dev 11/02/17 Unknown Rx Diskus 250-50 mcg] Metoprolol [Lopressor TAB] 12.5 mg PO BID #60 tablet 11/02/17 Unknown Rx Pantoprazole [Protonix TAB] 40 mg PO BID #60 tablet 11/02/17 Unknown Rx Prednisone [predniSONE 10 mg 10 mg PO .TAPER #1 tab.ds.pk 11/02/17 Unknown Rx (6-Day Pack, 21 Tabs)] Active Medications: Generic Name Dose Route Start Last Admin Trade Name Freq PRN Reason Stop Dose Admin Albuterol 2 puff 10/29/20 01:27 Albuterol 8.5 Gm Mdi Inhalation IH QID PRN Shortness Of Breath Albuterol/Ipratropium 1 ampul 10/30/20 08:00 10/31/20 13:05 Ipratropium/Albuterol Sulfate 3 Ml Ampul.Neb IH 1 ampul TIDRT AMNA Administration Alprazolam 0.5 mg 10/29/20 01:27 Alprazolam 0.5 Mg Tab PO BID PRN Anxiety Arformoterol Tartrate 15 mcg 10/29/20 08:00 10/31/20 08:25 Arformoterol 15 Mcg/2 Ml Nebu IH 15 mcg Q12HRT AMNA Administration Budesonide 0.5 mg 10/29/20 08:00 10/31/20 08:26 Budesonide 0.5 Mg/2 Ml Nebu IH 0.5 mg BIDRT AMNA Administration Citalopram Hydrobromide 40 mg 10/29/20 10:00 10/31/20 09:45 Citalopram 20 Mg Tab PO 40 mg DAILY AMNA Administration Hydrophilic Ointment 1 applic 10/29/20 09:02 Lip Therapy Vaseline TP Q2HR PRN Dry Lips Insulin Human Lispro 0 unit 10/29/20 13:00 10/31/20 13:15 Insulin Lispro 100 Unit/Ml SUB-Q 6 unit Q6HR AMNA Administration Protocol Lansoprazole 30 mg 10/31/20 10:00 10/31/20 09:43 Lansoprazole 30 Mg Solutab FEEDTUBE 30 mg QDAY AMNA Administration Lorazepam 1 mg 10/29/20 03:40 10/30/20 01:05 Lorazepam 2 Mg/Ml Vial IV 1 mg Q4H PRN Administration Agitation Losartan Potassium 50 mg 10/29/20 10:00 10/31/20 09:44 Losartan 50 Mg Tab PO 50 mg QDAY AMNA Administration Metoprolol Tartrate 12.5 mg 10/29/20 10:00 10/31/20 09:43 Metoprolol Tartrate 25 Mg Tab PO 12.5 mg BID AMNA Administration Multi-Ingred Cream/Lotion/Oil/Oint 1 applic 10/29/20 09:02 Mineral Oil/Petrolatum, White Ophth Oint 3.5 Gm OU Q4HR PRN Dry Eye(s) Pravastatin Sodium 40 mg 10/29/20 22:00 10/30/20 22:40 Pravastatin 40 Mg Tab PO 40 mg QHS AMNA Administration Sodium Chloride 10 ml 10/29/20 10:00 10/31/20 10:00 Sodium Chloride 0.9% 10 Ml Flush Syringe IV 10 ml BID AMNA Administration Sodium Chloride 10 ml 10/29/20 01:28 10/31/20 06:02 Sodium Chloride 0.9% 10 Ml Flush Syringe IV 10 ml PRN PRN Administration LINE FLUSH HEART Score - HEART Score Troponin: Troponin T < 0.010 ng/mL (0.00-0.029) 10/28/20 23:36
[2020-10-31] MEDS: ALPRAZolam 0.5 MG TAB PO PRN (21:06)
[2020-10-31] MEDS: PRAVASTATIN 40 MG TAB PO SCH (21:06)
--- NOTE | 2020-10-31 23:20 | Progress Note ---
Assessment and Plan Critical care statement The high probability OF a clinically significant sudden or life-threatening deterioration of the cardiorespiratory system and endocrine system required my full and direct attention, intervention and postoperative management. The aggregate critical care time was 40 minutes. The time is in addition to time spent performing reported procedures but includes the followin: Data review and interpretation 2: Patient assessment and monitoring of vital signs 3: Documentation 4:: Medication orders and management - Patient Problems (1) Acute respiratory failure with hypoxia Current Visit: Yes Status: Acute Plan to address problem: Patient was intubated yesterday Continue duo nebs Continue steroids Continue IV antibiotics (2) Symptomatic anemia Current Visit: Yes Status: Acute Plan to address problem: Patient being transfused Keep the hematocrit above 24 Hematology consult appreciated (3) COPD with acute exacerbation Current Visit: Yes Status: Acute Plan to address problem: Continue duo nebs IV antibiotics and steroids (4) GI bleed Current Visit: No Status: Chronic Qualifiers: GI bleed type/associated pathology: unspecified gastrointestinal hemorrhage type Qualified Code(s): K92.2 - Gastrointestinal hemorrhage, unspecified Plan to address problem: Patient has history of gastric AVMs for which she did not go for follow-up Transfuse as necessary to keep the hemoglobin above 8 and hematocrit about 24 (5) Metabolic encephalopathy Current Visit: No Status: Acute Plan to address problem: Severe confusion Possibly secondary to hypoxia and transfusion reaction Hematology consult appreciated (6) HTN (hypertension) Current Visit: No Status: Chronic Qualifiers: Hypertension type: essential hypertension Qualified Code(s): I10 - Essential (primary) hypertension Plan to address problem: Continue antihypertensives (7) Hyperlipidemia Current Visit: Yes Status: Chronic Qualifiers: Hyperlipidemia type: mixed hyperlipidemia Qualified Code(s): E78.2 - Mixed hyperlipidemia Plan to address problem: Continue statins (8) Transfusion reaction Current Visit: Yes Status: Acute Qualifiers: Encounter type: initial encounter Qualified Code(s): T80.92XA - Unspecified transfusion reaction, initial encounter Plan to address problem: Hematology consult requested (9) Depression Current Visit: Yes Status: Chronic Qualifiers: Depression Type: dysthymia Qualified Code(s): F34.1 - Dysthymic disorder Plan to address problem: Patient on citalopram 40 mg daily (10) Generalized anxiety disorder Current Visit: Yes Status: Acute Plan to address problem: Patient on anxiolytics from home (11) DVT prophylaxis Current Visit: No Status: Acute Plan to address problem: On SCDs and GI prophylaxis because of the low hemoglobin and tendency to bleed Subjective Date of service: 10/30/20 Principal diagnosis: Severe anemia, transfusion reaction Interval history: Subjective Date of service: 10/31/20 Principal diagnosis: Symptomatic anemia, respiratory failure, transfusion reaction Interval history: 75-year-old female with a past medical history of COPD on 3 L of home oxygen , multiple sclerosis, hypertension, elevated cholesterol was brought to the to the hospital complaining of intermittent shortness of breath progressively worsening the last several weeks. Symptoms are especially worse with minimal exertion. Patient using bronchodilators intermittently with minimal and only temporary improvement. patient was admitted October 2017 with acute on chronic respi ratory failure, severe anemia required several units of blood and had a GI work- up that included hiatal hernia, and small gastric ulceration, and a 5 mm AVM a duodenal bulb status post APC (argon plasma coagulation) treatment. Patient denied any rectal bleeding. In the emergency room patient hemoglobin is 3.1 hematocrit 13.2. Day #2 10/30/2020 Patient was transfused multiple units Patient went into respiratory distress and altered mental status and was intubated yesterday. [employer] consult requested by the previous team Patient intubated Possible transfusion reaction Low hemoglobin and hematocrit possibly secondary to AVMs by history Patient has history of gastric AVMs No melanotic stools Day #3 Still intubated Patient's hemoglobin is improved to around 8.0 Weaning in progress Day #4 Weaning in progress Objective - Exam Narrative Exam: Patient intubated - Constitutional Vitals: Vital Signs - 12hr 10/31/20 10/31/20 10/31/20 11:26 12:00 12:01 Temperature 98.0 F Pulse Rate 99 H 99 H Pulse Rate [ Bilateral] Pulse Rate [ 99 H From Monitor] Pulse Rate [ Throughout] Respiratory 27 H 29 H Rate Respiratory Rate [Back] Respiratory Rate [Bilateral Generalized Joint] Respiratory Rate [Bilateral ] Respiratory Rate [ Throughout] Blood Pressure 173/98 O2 Sat by Pulse 99 94 91 Oximetry 10/31/20 10/31/20 10/31/20 13:01 13:05 14:01 Temperature Pulse Rate 100 H 102 H Pulse Rate [ 96 H Bilateral] Pulse Rate [ From Monitor] Pulse Rate [ 95 H Throughout] Respiratory 28 H 21 Rate Respiratory Rate [Back] Respiratory Rate [Bilateral Generalized Joint] Respiratory 20 Rate [Bilateral ] Respiratory 20 Rate [ Throughout] Blood Pressure 154/60 154/60 O2 Sat by Pulse 93 92 Oximetry 10/31/20 10/31/20 10/31/20 15:01 16:00 17:01 Temperature 98.0 F Pulse Rate 90 103 H 103 H Pulse Rate [ Bilateral] Pulse Rate [ 97 H From Monitor] Pulse Rate [ Throughout] Respiratory 19 24 26 H Rate Respiratory 23 Rate [Back] Respiratory 23 Rate [Bilateral Generalized Joint] Respiratory Rate [Bilateral ] Respiratory Rate [ Throughout] Blood Pressure 154/60 169/107 155/66 O2 Sat by Pulse 95 89 90 Oximetry 10/31/20 10/31/20 10/31/20 18:01 19:01 20:00 Temperature 98.7 F Pulse Rate 89 104 H Pulse Rate [ Bilateral] Pulse Rate [ From Monitor] Pulse Rate [ Throughout] Respiratory 21 21 Rate Respiratory Rate [Back] Respiratory Rate [Bilateral Generalized Joint] Respiratory Rate [Bilateral ] Respiratory Rate [ Throughout] Blood Pressure 160/77 153/90 O2 Sat by Pulse 96 91 Oximetry 10/31/20 10/31/20 10/31/20 20:16 20:18 21:06 Temperature Pulse Rate 106 H Pulse Rate [ Bilateral] Pulse Rate [ From Monitor] Pulse Rate [ 99 H Throughout] Respiratory Rate Respiratory Rate [Back] Respiratory Rate [Bilateral Generalized Joint] Respiratory Rate [Bilateral ] Respiratory 20 Rate [ Throughout] Blood Pressure 165/85 O2 Sat by Pulse 95 Oximetry General appearance: Present: no acute distress, well-nourished - EENT Eyes: PERRL, EOM intact ENT: hearing intact, clear oral mucosa Ears: bilateral: normal - Neck Neck: supple, normal ROM - Respiratory Respiratory effort: normal Respiratory: bilateral: CTA - Breasts Breasts: normal - Cardiovascular Heart rate: 88 Rhythm: regular Heart Sounds: Present: S1 & S2. Absent: gallop, rub Extremities: pulses intact, No edema, normal color, Full ROM - Gastrointestinal General gastrointestinal: Present: soft, non-tender, non-distended, normal bowel sounds - Genitourinary Female genitourinary: normal - Integumentary Integumentary: clear, warm, dry - Musculoskeletal Musculoskeletal: 1, strength equal bilaterally - Neurologic Neurologic: moves all extremities - Psychiatric Psychiatric: memory intact, appropriate mood/affect, intact judgment & insight - Labs CBC & Chem 7: 11/03/20 07:11 11/03/20 07:11 Labs: Abnormal lab results 10/29/20 10/30/20 10/31/20 Range/Units 00:20 23:20 04:11 WBC (4.5-11.0) K/mm3 Hgb (10.1-14.3) gm/dl Hct (30.3-42.9) % MCV (79-97) fl MCH (28-32) pg MCHC (30-34) % RDW (13.2-15.2) % Seg Neuts % (Manual) (40.0-70.0) % Lymphocytes % (Manual) (13.4-35.0) % Nucleated RBC % (0.0-0.9) % Seg Neutrophils # Man (1.8-7.7) K/mm3 Lymphocytes # (Manual) (1.2-5.4) K/mm3 ABG pH 7.678 H (7.320-7.450) POC ABG pCO2 21.7 L (32.0-48.0) mmHg POC ABG pO2 160.9 H (83-108) mmHg ABG Hemoglobin 7.4 L (12.0-17.5) ABG Potassium 4.7 H (3.40-4.50) mmol/L ABG Chloride 108.0 H (98-107) mmol/L ABG Glucose 260 H (65-95) mg/dL BUN (7-17) mg/dL Glucose (65-100) mg/dL POC Glucose 210 H (70-105) mg/dL Albumin (3.9-5) g/dL Arterial Blood Glucose 260 H (65-95) mg/dL Arterial Blood Ionized Calcium 4.4 L (4.6-5.3) mg/dL Crossmatch See Detail 10/31/20 10/31/20 10/31/20 Range/Units 05:02 05:10 05:10 WBC 15.6 H (4.5-11.0) K/mm3 Hgb 7.8 L (10.1-14.3) gm/dl Hct 26.8 L (30.3-42.9) % MCV 66 L (79-97) fl MCH 19 L (28-32) pg MCHC 29 L (30-34) % RDW 39.1 H (13.2-15.2) % Seg Neuts % (Manual) 97.0 H (40.0-70.0) % Lymphocytes % (Manual) 2.0 L (13.4-35.0) % Nucleated RBC % 3.0 H (0.0-0.9) % Seg Neutrophils # Man 15.1 H (1.8-7.7) K/mm3 Lymphocytes # (Manual) 0.3 L (1.2-5.4) K/mm3 ABG pH (7.320-7.450) POC ABG pCO2 (32.0-48.0) mmHg POC ABG pO2 (83-108) mmHg ABG Hemoglobin (12.0-17.5) ABG Potassium (3.40-4.50) mmol/L ABG Chloride (98-107) mmol/L ABG Glucose (65-95) mg/dL BUN 33 H (7-17) mg/dL Glucose 259 H (65-100) mg/dL POC Glucose 255 H (70-105) mg/dL Albumin 3.8 L (3.9-5) g/dL Arterial Blood Glucose (65-95) mg/dL Arterial Blood Ionized Calcium (4.6-5.3) mg/dL Crossmatch 10/31/20 10/31/20 Range/Units 11:50 17:11 WBC (4.5-11.0) K/mm3 Hgb (10.1-14.3) gm/dl Hct (30.3-42.9) % MCV (79-97) fl MCH (28-32) pg MCHC (30-34) % RDW (13.2-15.2) % Seg Neuts % (Manual) (40.0-70.0) % Lymphocytes % (Manual) (13.4-35.0) % Nucleated RBC % (0.0-0.9) % Seg Neutrophils # Man (1.8-7.7) K/mm3 Lymphocytes # (Manual) (1.2-5.4) K/mm3 ABG pH (7.320-7.450) POC ABG pCO2 (32.0-48.0) mmHg POC ABG pO2 (83-108) mmHg ABG Hemoglobin (12.0-17.5) ABG Potassium (3.40-4.50) mmol/L ABG Chloride (98-107) mmol/L ABG Glucose (65-95) mg/dL BUN (7-17) mg/dL Glucose (65-100) mg/dL POC Glucose 259 H 203 H (70-105) mg/dL Albumin (3.9-5) g/dL Arterial Blood Glucose (65-95) mg/dL Arterial Blood Ionized Calcium (4.6-5.3) mg/dL Crossmatch HEART Score - HEART Score Troponin: Troponin T < 0.010 ng/mL (0.00-0.029) 10/28/20 23:36
[2020-11-01] MEDS: INSULIN LISPRO 100 UNIT/ML SUB-Q SCH ×5 (04:30→19:00)
[2020-11-01] MEDS: CITALOPRAM 20 MG TAB PO SCH ×2 (04:31→16:10)
[2020-11-01] MEDS: AZITHROMYCIN 250 MG TAB PO SCH (04:32)
[2020-11-01] MEDS: LOSARTAN 50 MG TAB PO SCH ×2 (04:32→16:10)
[2020-11-01] MEDS: methylPREDNISolone Sod Succinate 125 MG/2 ML INJ IV SCH (04:38)
[2020-11-01] MEDS: BUDESONIDE 0.5 MG/2 ML NEBU IH SCH ×2 (09:10→20:39)
[2020-11-01] MEDS: ARFORMOTEROL 15 MCG/2 ML NEBU IH SCH ×2 (09:10→20:39)
--- NOTE | 2020-11-01 12:13 | Progress Note ---
Assessment and Plan 75 y/o female with acute respiratory failure secondary to altered mental state and hypoxemia, TRALI vs TACO (Transfusion Associated Circulatory Overload). 11/01/20: Bipap therapy QHS, per daughter she should be wearing this but is noncompliant with therapy at home. BP control per primary. continue neb therapy for COPD and supplemental oxygen. Goal sat is 88-92%. Suggest checking labs. Will continue to follow. 10/31/20: Will extubate today. Follow up any new GI recs. No further lasix as of right now. Once extubated, should be stable for transfer [place] [facility] [place]. Stopped steroids. 1. Pulm- Given need for more blood, will hold on weaning for today and allow patient to be transfused up to goal. Continue sedation with diprovan. will need triglycerides checked either tomorrow or Wednesday if still intubated. C ontinue high peeps for now, and will start to wean once H/H at Goal. Appreciate Heme evaluation. Lasix given again today and will likely give again tonight. 2. GI-Ir Def anemia, chronic in nature and prior history of Gastric AVM's. No evidence of active bleeding at present. Await GI evaluation. Agree with GI evaluation. Ok with feeding patient unless GI has plans to scope in the near future. 3. Heme-anemia. Appreciate recs. Steroids started by heme so defer them on duration. Patient is not actively in COPD exacerbation. 4. Hold on DVT prophylaxis with drugs, SCDs only. Guarded prognosis CCT 31 minutes Subjective Date of service: 11/01/20 Interval history: Patient with some mild respiratory distress this morning. Placed on bipap. Now calm and alert. Still on mask but down to 40%. Objective Vital Signs - 12hr 11/01/20 11/01/20 11/01/20 01:01 02:01 03:01 Temperature Pulse Rate 83 99 H Pulse Rate [ From Monitor] Pulse Rate [ Throughout] Respiratory 18 20 Rate Respiratory Rate [ Throughout] Blood Pressure 159/80 164/86 175/137 O2 Sat by Pulse 97 94 Oximetry 11/01/20 11/01/20 11/01/20 03:33 04:00 04:01 Temperature 98.8 F Pulse Rate 108 H 98 H Pulse Rate [ 108 H From Monitor] Pulse Rate [ Throughout] Respiratory 23 22 Rate Respiratory Rate [ Throughout] Blood Pressure 122/97 O2 Sat by Pulse 96 96 Oximetry 11/01/20 11/01/20 11/01/20 05:00 06:00 07:00 Temperature Pulse Rate 101 H 96 H 96 H Pulse Rate [ From Monitor] Pulse Rate [ Throughout] Respiratory 24 17 20 Rate Respiratory Rate [ Throughout] Blood Pressure 149/72 163/138 165/93 O2 Sat by Pulse 92 96 97 Oximetry 11/01/20 11/01/20 11/01/20 08:00 09:00 09:06 Temperature 97.2 F L Pulse Rate 108 H 125 H 109 H Pulse Rate [ From Monitor] Pulse Rate [ 106 H Throughout] Respiratory 25 H 24 25 H Rate Respiratory 24 Rate [ Throughout] Blood Pressure 177/87 171/80 157/78 O2 Sat by Pulse 96 93 99 Oximetry Constitutional: no acute distress, appears uncomfortable, other (will wake up with light stimulation) Eyes: non-icteric ENT: other (orally intubated and sedated) Neck: supple Effort: mildly labored Ascultation: Bilateral: diminished breath sounds Percussion: Right: not dull Cardiovascular: regular rate and rhythm Gastrointestinal: normoactive bowel sounds, soft, non-tender Extremities: no edema, pink and warm, pulses normal CBC and BMP: 10/31/20 05:10 10/31/20 05:10 ABG, PT/INR, D-dimer: ABG ABG pH 7.678 (7.320-7.450) H 10/31/20 04:11 POC ABG pCO2 21.7 mmHg (32.0-48.0) L 10/31/20 04:11 ABG pCO2 43.7 mm Hg 10/29/20 10:35 POC ABG pO2 160.9 mmHg (83-108) H 10/31/20 04:11 ABG pO2 68.0 mm Hg (80.0-90.0) L 10/29/20 10:35 POC ABG HCO3 24.9 10/31/20 04:11 ABG O2 Saturation 93.8 % (95.0-99.0) L 10/29/20 10:35 PT/INR, D-dimer PT 16.6 Sec. (12.2-14.9) H 10/28/20 23:25 INR 1.34 (0.87-1.13) H 10/28/20 23:25 D-Dimer 798.02 ng/mlDDU (0-234) H 10/28/20 23:25 Abnormal lab findings: Abnormal Labs 10/28/20 10/28/20 10/28/20 23:25 23:25 23:25 WBC 13.2 H RBC 2.59 L Hgb 3.2 L* Hct 13.2 L* MCV 51 L MCH 12 L MCHC 25 L RDW 24.5 H Plt Count 504 H Seg Neuts % (Manual) 96.0 H Lymphocytes % (Manual) 2.0 L Nucleated RBC % Seg Neutrophils # Man 12.7 H Lymphocytes # (Manual) 0.3 L PT 16.6 H INR 1.34 H D-Dimer 798.02 H ABG pH POC ABG pCO2 POC ABG pO2 ABG pO2 ABG O2 Saturation ABG Base Excess ABG Hemoglobin ABG Oxyhemoglobin ABG Sodium ABG Potassium ABG Chloride ABG Glucose Oxyhemoglobin Potassium 5.2 H Chloride Carbon Dioxide 17 L BUN 30 H Creatinine 1.4 H Glucose 313 H POC Glucose Calcium 8.2 L Lactate Dehydrogenase NT-Pro-B Natriuret Pep 1685 H Albumin Arterial Blood Glucose Arterial Blood Ionized Calcium Crossmatch 10/29/20 10/29/20 10/29/20 00:20 04:24 08:41 WBC RBC Hgb Hct MCV MCH MCHC RDW Plt Count Seg Neuts % (Manual) Lymphocytes % (Manual) Nucleated RBC % Seg Neutrophils # Man Lymphocytes # (Manual) PT INR D-Dimer ABG pH 7.208 L POC ABG pCO2 POC ABG pO2 249.6 H ABG pO2 ABG O2 Saturation ABG Base Excess ABG Hemoglobin 5 L ABG Oxyhemoglobin ABG Sodium 135.1 L ABG Potassium 5.4 H ABG Chloride 108.0 H ABG Glucose 413 H Oxyhemoglobin Potassium Chloride Carbon Dioxide BUN Creatinine Glucose POC Glucose 367 H Calcium Lactate Dehydrogenase NT-Pro-B Natriuret Pep Albumin Arterial Blood Glucose 413 H Arterial Blood Ionized Calcium 4.5 L Crossmatch See Detail 10/29/20 10/29/20 10/29/20 10:35 12:05 12:12 WBC 11.8 H RBC 3.20 L Hgb 5.3 L* Hct 19.0 L* MCV 59 L MCH 17 L MCHC 28 L RDW 38.0 H Plt Count 469 H Seg Neuts % (Manual) 93.0 H Lymphocytes % (Manual) 6.0 L Nucleated RBC % Seg Neutrophils # Man 11.0 H Lymphocytes # (Manual) 0.7 L PT INR D-Dimer ABG pH 7.336 L POC ABG pCO2 POC ABG pO2 ABG pO2 68.0 L ABG O2 Saturation 93.8 L ABG Base Excess -2.7 L ABG Hemoglobin 6.0 L ABG Oxyhemoglobin ABG Sodium ABG Potassium ABG Chloride ABG Glucose Oxyhemoglobin 91.4 L Potassium Chloride Carbon Dioxide BUN Creatinine Glucose POC Glucose 313 H Calcium Lactate Dehydrogenase NT-Pro-B Natriuret Pep Albumin Arterial Blood Glucose Arterial Blood Ionized Calcium Crossmatch 10/29/20 10/29/20 10/29/20 17:50 18:37 23:14 WBC RBC Hgb Hct MCV MCH MCHC RDW Plt Count Seg Neuts % (Manual) Lymphocytes % (Manual) Nucleated RBC % Seg Neutrophils # Man Lymphocytes # (Manual) PT INR D-Dimer ABG pH POC ABG pCO2 POC ABG pO2 ABG pO2 ABG O2 Saturation ABG Base Excess ABG Hemoglobin ABG Oxyhemoglobin ABG Sodium ABG Potassium ABG Chloride ABG Glucose Oxyhemoglobin Potassium Chloride Carbon Dioxide BUN Creatinine Glucose POC Glucose 201 H 188 H Calcium Lactate Dehydrogenase 355 H NT-Pro-B Natriuret Pep Albumin Arterial Blood Glucose Arterial Blood Ionized Calcium Crossmatch 10/30/20 10/30/20 10/30/20 04:36 05:13 06:13 WBC 12.9 H RBC 3.23 L Hgb 5.8 L* Hct 20.2 L MCV 63 L MCH 18 L MCHC 29 L RDW 40.0 H Plt Count Seg Neuts % (Manual) 92.0 H Lymphocytes % (Manual) 3.0 L Nucleated RBC % 2.0 H Seg Neutrophils # Man 11.9 H Lymphocytes # (Manual) 0.4 L PT INR D-Dimer ABG pH POC ABG pCO2 POC ABG pO2 68.2 L ABG pO2 ABG O2 Saturation ABG Base Excess ABG Hemoglobin 6.6 L ABG Oxyhemoglobin 91.9 L ABG Sodium ABG Potassium 5.1 H ABG Chloride 109.0 H ABG Glucose 236 H Oxyhemoglobin Potassium Chloride Carbon Dioxide BUN Creatinine Glucose POC Glucose 221 H Calcium Lactate Dehydrogenase NT-Pro-B Natriuret Pep Albumin Arterial Blood Glucose 236 H Arterial Blood Ionized Calcium 4.4 L Crossmatch 10/30/20 10/30/20 10/30/20 06:13 11:50 17:13 WBC RBC Hgb 7.8 L Hct 26.1 L MCV MCH MCHC RDW Plt Count Seg Neuts % (Manual) Lymphocytes % (Manual) Nucleated RBC % Seg Neutrophils # Man Lymphocytes # (Manual) PT INR D-Dimer ABG pH POC ABG pCO2 POC ABG pO2 ABG pO2 ABG O2 Saturation ABG Base Excess ABG Hemoglobin ABG Oxyhemoglobin ABG Sodium ABG Potassium ABG Chloride ABG Glucose Oxyhemoglobin Potassium 5.2 H Chloride 108.4 H Carbon Dioxide BUN 28 H Creatinine Glucose 244 H POC Glucose 226 H Calcium 8.1 L Lactate Dehydrogenase NT-Pro-B Natriuret Pep Albumin Arterial Blood Glucose Arterial Blood Ionized Calcium Crossmatch 10/30/20 10/30/20 10/31/20 17:57 23:20 04:11 WBC RBC Hgb Hct MCV MCH MCHC RDW Plt Count Seg Neuts % (Manual) Lymphocytes % (Manual) Nucleated RBC % Seg Neutrophils # Man Lymphocytes # (Manual) PT INR D-Dimer ABG pH 7.678 H POC ABG pCO2 21.7 L POC ABG pO2 160.9 H ABG pO2 ABG O2 Saturation ABG Base Excess ABG Hemoglobin 7.4 L ABG Oxyhemoglobin ABG Sodium ABG Potassium 4.7 H ABG Chloride 108.0 H ABG Glucose 260 H Oxyhemoglobin Potassium Chloride Carbon Dioxide BUN Creatinine Glucose POC Glucose 232 H 210 H Calcium Lactate Dehydrogenase NT-Pro-B Natriuret Pep Albumin Arterial Blood Glucose 260 H Arterial Blood Ionized Calcium 4.4 L Crossmatch 10/31/20 10/31/20 10/31/20 05:02 05:10 05:10 WBC 15.6 H RBC Hgb 7.8 L Hct 26.8 L MCV 66 L MCH 19 L MCHC 29 L RDW 39.1 H Plt Count Seg Neuts % (Manual) 97.0 H Lymphocytes % (Manual) 2.0 L Nucleated RBC % 3.0 H Seg Neutrophils # Man 15.1 H Lymphocytes # (Manual) 0.3 L PT INR D-Dimer ABG pH POC ABG pCO2 POC ABG pO2 ABG pO2 ABG O2 Saturation ABG Base Excess ABG Hemoglobin ABG Oxyhemoglobin ABG Sodium ABG Potassium ABG Chloride ABG Glucose Oxyhemoglobin Potassium Chloride Carbon Dioxide BUN 33 H Creatinine Glucose 259 H POC Glucose 255 H Calcium Lactate Dehydrogenase NT-Pro-B Natriuret Pep Albumin 3.8 L Arterial Blood Glucose Arterial Blood Ionized Calcium Crossmatch 10/31/20 10/31/20 11/01/20 11:50 17:11 06:29 WBC RBC Hgb Hct MCV MCH MCHC RDW Plt Count Seg Neuts % (Manual) Lymphocytes % (Manual) Nucleated RBC % Seg Neutrophils # Man Lymphocytes # (Manual) PT INR D-Dimer ABG pH POC ABG pCO2 POC ABG pO2 ABG pO2 ABG O2 Saturation ABG Base Excess ABG Hemoglobin ABG Oxyhemoglobin ABG Sodium ABG Potassium ABG Chloride ABG Glucose Oxyhemoglobin Potassium Chloride Carbon Dioxide BUN Creatinine Glucose POC Glucose 259 H 203 H 178 H Calcium Lactate Dehydrogenase NT-Pro-B Natriuret Pep Albumin Arterial Blood Glucose Arterial Blood Ionized Calcium Crossmatch 11/01/20 11:57 WBC RBC Hgb Hct MCV MCH MCHC RDW Plt Count Seg Neuts % (Manual) Lymphocytes % (Manual) Nucleated RBC % Seg Neutrophils # Man Lymphocytes # (Manual) PT INR D-Dimer ABG pH POC ABG pCO2 POC ABG pO2 ABG pO2 ABG O2 Saturation ABG Base Excess ABG Hemoglobin ABG Oxyhemoglobin ABG Sodium ABG Potassium ABG Chloride ABG Glucose Oxyhemoglobin Potassium Chloride Carbon Dioxide BUN Creatinine Glucose POC Glucose 255 H Calcium Lactate Dehydrogenase NT-Pro-B Natriuret Pep Albumin Arterial Blood Glucose Arterial Blood Ionized Calcium Crossmatch
[2020-11-01] MEDS: D5W/0.9% NACL 1,000 ML IV SCH (12:35)
--- NOTE | 2020-11-01 14:57 | Progress Note ---
Assessment and Plan Critical care statement The high probability OF a clinically significant sudden or life-threatening deterioration of the cardiorespiratory system and endocrine system required my full and direct attention, intervention and postoperative management. The aggregate critical care time was 40 minutes. The time is in addition to time spent performing reported procedures but includes the followin: Data review and interpretation 2: Patient assessment and monitoring of vital signs 3: Documentation 4:: Medication orders and management - Patient Problems (1) Acute respiratory failure with hypoxia Current Visit: Yes Status: Acute Plan to address problem: Patient was intubated yesterday Continue duo nebs Continue steroids Continue IV antibiotics Patient extubated BiPAP especially at nighttime and as needed (2) Symptomatic anemia Current Visit: Yes Status: Acute Plan to address problem: Patient being transfused Keep the hematocrit above 24 Hematology consult appreciated Patient transfuse to goal of 9.0 hemoglobin (3) COPD with acute exacerbation Current Visit: Yes Status: Acute Plan to address problem: Continue duo nebs IV antibiotics and steroids (4) GI bleed Current Visit: No Status: Chronic Qualifiers: GI bleed type/associated pathology: unspecified gastrointestinal hemorrhage type Qualified Code(s): K92.2 - Gastrointestinal hemorrhage, unspecified Plan to address problem: Patient has history of gastric AVMs for which she did not go for follow-up Transfuse as necessary to keep the hemoglobin above 8 and hematocrit about 24 (5) Metabolic encephalopathy Current Visit: No Status: Acute Plan to address problem: Severe confusion Possibly secondary to hypoxia and transfusion reaction Hematology consult appreciated (6) HTN (hypertension) Current Visit: No Status: Chronic Qualifiers: Hypertension type: essential hypertension Qualified Code(s): I10 - Essential (primary) hypertension Plan to address problem: Continue antihypertensives (7) Hyperlipidemia Current Visit: Yes Status: Chronic Qualifiers: Hyperlipidemia type: mixed hyperlipidemia Qualified Code(s): E78.2 - Mixed hyperlipidemia Plan to address problem: Continue statins (8) Transfusion reaction Current Visit: Yes Status: Acute Qualifiers: Encounter type: initial encounter Qualified Code(s): T80.92XA - Unspecified transfusion reaction, initial encounter Plan to address problem: Hematology consult requested (9) Depression Current Visit: Yes Status: Chronic Qualifiers: Depression Type: dysthymia Qualified Code(s): F34.1 - Dysthymic disorder Plan to address problem: Patient on citalopram 40 mg daily (10) Generalized anxiety disorder Current Visit: Yes Status: Acute Plan to address problem: Patient on anxiolytics from home (11) DVT prophylaxis Current Visit: No Status: Acute Plan to address problem: On SCDs and GI prophylaxis because of the low hemoglobin and tendency to bleed Subjective Date of service: 10/30/20 Principal diagnosis: Severe anemia, transfusion reaction Interval history: Subjective Date of service: 11/01/20 Principal diagnosis: Symptomatic anemia, transfusion reaction, acute respiratory failure with hy Interval history: 75-year-old female with a past medical history of COPD on 3 L of home oxygen , multiple sclerosis, hypertension, elevated cholesterol was brought to the to the hospital complaining of intermittent shortness of breath progressively worsening the last several weeks. Symptoms are especially worse with minimal exertion. Patient using bronchodilators intermittently with minimal and only temporary improvement. patient was admitted October 2017 with acute on chronic respiratory failure, severe anemia required several units of blood and had a GI work-up that included hiatal hernia, and small gastric ulceration, and a 5 mm AVM a duodenal bulb status post APC (argon plasma coagulation) treatment. Patient denied any rectal bleeding. In the emergency room patient hemoglobin is 3.1 hematocrit 13.2. Day #2 10/30/2020 Patient was transfused multiple units Patient went into respiratory distress and altered mental status and was intubated yesterday. Shovel Operator consult requested by the previous team Patient intubated Possible transfusion reaction Low hemoglobin and hematocrit possibly secondary to AVMs by history Patient has history of gastric AVMs No melanotic stools Day #3 Still intubated Patient's hemoglobin is improved to around 8.0 Weaning in progress Day #4 Patient extubated Patient needs BiPAP especially at nighttime patient is noncompliant with it Patient is on home oxygen Objective - Exam Narrative Exam: Patient intubated - Constitutional Vitals: Vital Signs - 12hr 11/01/20 11/01/20 11/01/20 03:01 03:33 04:00 Temperature 98.8 F Pulse Rate 108 H Pulse Rate [ 108 H From Monitor] Pulse Rate [ Throughout] Respiratory 23 Rate Respiratory Rate [ Throughout] Blood Pressure 175/137 O2 Sat by Pulse 96 Oximetry 11/01/20 11/01/20 11/01/20 04:01 05:00 06:00 Temperature Pulse Rate 98 H 101 H 96 H Pulse Rate [ From Monitor] Pulse Rate [ Throughout] Respiratory 22 24 17 Rate Respiratory Rate [ Throughout] Blood Pressure 122/97 149/72 163/138 O2 Sat by Pulse 96 92 96 Oximetry 11/01/20 11/01/20 11/01/20 07:00 08:00 09:00 Temperature 97.2 F L Pulse Rate 96 H 108 H 125 H Pulse Rate [ From Monitor] Pulse Rate [ 106 H Throughout] Respiratory 20 25 H 24 Rate Respiratory 24 Rate [ Throughout] Blood Pressure 165/93 177/87 171/80 O2 Sat by Pulse 97 96 93 Oximetry 11/01/20 11/01/20 09:06 12:00 Temperature 98.3 F Pulse Rate 109 H Pulse Rate [ From Monitor] Pulse Rate [ Throughout] Respiratory 25 H Rate Respiratory Rate [ Throughout] Blood Pressure 157/78 O2 Sat by Pulse 99 Oximetry General appearance: Present: no acute distress, well-nourished - EENT Eyes: PERRL, EOM intact ENT: hearing intact, clear oral mucosa Ears: bilateral: normal - Neck Neck: supple, normal ROM - Respiratory Respiratory effort: normal Respiratory: bilateral: CTA - Breasts Breasts: normal - Cardiovascular Heart rate: 88 Rhythm: regular Heart Sounds: Present: S1 & S2. Absent: gallop, rub Extremities: pulses intact, No edema, normal color, Full ROM - Gastrointestinal General gastrointestinal: Present: soft, non-tender, non-distended, normal bowel sounds - Genitourinary Female genitourinary: normal - Integumentary Integumentary: clear, warm, dry - Musculoskeletal Musculoskeletal: 1, strength equal bilaterally - Neurologic Neurologic: moves all extremities - Psychiatric Psychiatric: memory intact, appropriate mood/affect, intact judgment & insight - Labs CBC & Chem 7: 11/03/20 07:11 11/03/20 07:11 Labs: Abnormal lab results 10/29/20 10/31/20 11/01/20 Range/Units 00:20 17:11 06:29 POC Glucose 203 H 178 H (70-105) mg/dL Crossmatch See Detail 11/01/20 Range/Units 11:57 POC Glucose 255 H (70-105) mg/dL Crossmatch HEART Score - HEART Score Troponin: Troponin T < 0.010 ng/mL (0.00-0.029) 10/28/20 23:36
[2020-11-01 15:15] LABS: Mean Corpuscular HGB Conc 29 % (30-34); Platelet Count 379 K/mm3 (140-440); Red Blood Count 4.52 M/mm3 (3.65-5.03)
[2020-11-01 15:22] LABS: Hemoglobin 8.7 gm/dl (10.1-14.3)
[2020-11-01 15:23] LABS: Mean Corpuscular Volume 66 fl (79-97); Red Cell Distribution Width 39.5 % (13.2-15.2)
[2020-11-01 15:31] LABS: BUN/Creatinine Ratio 44; Blood Urea Nitrogen 31 mg/dL (7-17); Calcium 8.9 mg/dL (8.4-10.2); Hemolysis Index 0
[2020-11-01] MEDS: LANSOPRAZOLE 30 MG SOLUTAB FEEDTUBE SCH (16:10)
[2020-11-01] MEDS: METOPROLOL TARTRATE 25 MG TAB PO SCH ×2 (16:10→22:24)
--- NOTE | 2020-11-01 18:45 | Cat Scan Report ---
CT head/brain wo con INDICATION / CLINICAL INFORMATION: 75 years Female; AMS. TECHNIQUE: Routine CT head without contrast. All CT scans at this location are performed using CT dos e reduction for ALARA by means of automated exposure control. COMPARISON: The study is compared to the previous CT of 03/10/2017. FINDINGS: The motion degrades the image quality despite repeat imaging. However, there is mild to mod erate cerebral white matter disease most consistent with microvascular angiopathy at. There is also m ild cerebral atrophy. The ventricular system is correspondingly appropriate in size and configuration . There is no clear CT evidence of acute intracranial hemorrhage or significant mass effect. 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 ORBITS: No significant abnormality of visualized orbits. SINUSES / MASTOIDS: No significant abnormality in the visualized paranasal sinuses or mastoid air lachelle ls. CRANIOCERVICAL JUNCTION: No significant abnormality. ADDITIONAL FINDINGS: None. IMPRESSION: 1. 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 Signer Name: Vidal Hodge MD Signed: 11/01/2020 6:41 PM Workstation Name: [id number]
[2020-11-01] MEDS: ALPRAZolam 0.5 MG TAB PO PRN (22:24)
[2020-11-01] MEDS: PRAVASTATIN 40 MG TAB PO SCH (22:24)
[2020-11-02] MEDS: INSULIN LISPRO 100 UNIT/ML SUB-Q SCH ×4 (02:01→22:34)
[2020-11-02] MEDS ORDERED: LORazepam 2 MG/ML VIAL IV ONE (02:14)
[2020-11-02] MEDS: ARFORMOTEROL 15 MCG/2 ML NEBU IH SCH ×2 (08:27→21:54)
[2020-11-02] MEDS: BUDESONIDE 0.5 MG/2 ML NEBU IH SCH ×2 (08:27→21:54)
[2020-11-02] MEDS: METOPROLOL TARTRATE 25 MG TAB PO SCH ×2 (09:24→22:17)
[2020-11-02] MEDS: LOSARTAN 50 MG TAB PO SCH (09:24)
[2020-11-02] MEDS: CITALOPRAM 20 MG TAB PO SCH (09:25)
[2020-11-02] MEDS: LANSOPRAZOLE 30 MG SOLUTAB FEEDTUBE SCH (09:25)
--- NOTE | 2020-11-02 10:52 | Gastroenterology Progress Note ---
Assessment and Plan - Patient Problems (1) Duodenal ulcer with hemorrhage Current Visit: Yes Status: Acute Plan to address problem: - Severe DU with active hemorrage dx 11/01; s/p EGD/clip and then embolization in IR - Still tachy, and likely still with anemia; will check hct and transfuse today if needed - Begin liquid feeds and MVI; advance as tolerated - Continue PPI IV today, and will transition to PO tomorrow pending clinical course - Avoid all anticoagulation today, even DVT PPY/heparin-lovenox Subjective Date of service: 11/02/20 Principal diagnosis: DU with hemorrhage Interval history: The patient underwent embolization of her ulcer yesterday, and has no abdominal pain, N/V, or fevers overnight. She did have one dark BM in the middle of the night, but today she has only had a smear of dark stool. Hct ordered this AM is pending. She is hungry and wants to eat. Objective - Constitutional Vitals: Temp Pulse Resp BP Pulse Ox 97.6 F 92 H 24 130/62 99 11/02/20 08:00 11/02/20 10:00 11/02/20 10:00 11/02/20 10:11/02/20 10:00 General appearance: no acute distress - Respiratory Respiratory effort: normal Respiratory: bilateral: CTA - Cardiovascular Heart Rate: 115 Rhythm: regular - Gastrointestinal General gastrointestinal: Present: soft, non-distended - Labs CBC & Chem 7: 11/01/20 14:54 11/01/20 14:54 Labs: Laboratory Results - last 24 hr 11/01/20 11/01/20 11/01/20 06:29 11:57 14:54 WBC 13.4 H RBC 4.52 Hgb 8.7 L Hct 30.0 L MCV 66 L MCH 19 L MCHC 29 L RDW 39.5 H Plt Count 379 Sodium Potassium Chloride Carbon Dioxide Anion Gap BUN Creatinine Estimated GFR BUN/Creatinine Ratio Glucose POC Glucose 178 H 255 H Calcium 11/01/20 11/01/20 11/02/20 14:54 18:47 00:08 WBC RBC Hgb Hct MCV MCH MCHC RDW Plt Count Sodium 150 H D Potassium 4.3 Chloride 111.4 H Carbon Dioxide 28 Anion Gap 15 BUN 31 H Creatinine 0.7 Estimated GFR > 60 BUN/Creatinine Ratio 44 Glucose 221 H POC Glucose 206 H 132 H Calcium 8.9 01/30/21 05:29 WBC RBC Hgb Hct MCV MCH MCHC RDW Plt Count Sodium Potassium Chloride Carbon Dioxide Anion Gap BUN Creatinine Estimated GFR BUN/Creatinine Ratio Glucose POC Glucose 137 H Calcium
--- NOTE | 2020-11-02 10:59 | Gastroenterology Progress Note ---
Assessment and Plan - Patient Problems (1) Microcytic anemia Current Visit: Yes Status: Acute Plan to address problem: - Hx of gastric AVM treatment a few years ago; unclear if she ever rec'd a colonoscopy (was recommended; patient did not f/u in clinic). - Will continue PO meds/MVI/feeds for now, until pulmonary status improves. - Plan repeat EGD +/- colonoscopy in the near future pending clinical course; for now OK to continue mechanical soft diet. Subjective Date of service: 11/02/20 Principal diagnosis: Microcytic anemia Interval history: The patient remains off the ventilator, and has no gross GI bleeding. She is still confused, but was able to tolerate PO meds/sips of liquids. Objective - Constitutional Vitals: Temp Pulse Resp BP Pulse Ox 97.6 F 92 H 24 130/62 99 11/02/20 08:00 11/02/20 10:00 11/02/20 10:00 11/02/20 10:00 11/02/20 10:00 General appearance: no acute distress - Respiratory Respiratory effort: normal Respiratory: bilateral: CTA (Pulling off NC) - Cardiovascular Rhythm: regular Heart Sounds: Present: S1 & S2 - Gastrointestinal General gastrointestinal: Present: soft, non-tender, non-distended - Labs CBC & Chem 7: 11/01/20 14:54 11/01/20 14:54 Labs: Laboratory Results - last 24 hr 11/01/20 11/01/20 11/01/20 06:29 11:57 14:54 WBC 13.4 H RBC 4.52 Hgb 8.7 L Hct 30.0 L MCV 66 L MCH 19 L MCHC 29 L RDW 39.5 H Plt Count 379 Sodium Potassium Chloride Carbon Dioxide Anion Gap BUN Creatinine Estimated GFR BUN/Creatinine Ratio Glucose POC Glucose 178 H 255 H Calcium 11/01/20 11/01/20 11/02/20 14:54 18:47 00:08 WBC RBC Hgb Hct MCV MCH MCHC RDW Plt Count Sodium 150 H D Potassium 4.3 Chloride 111.4 H Carbon Dioxide 28 Anion Gap 15 BUN 31 H Creatinine 0.7 Estimated GFR > 60 BUN/Creatinine Ratio 44 Glucose 221 H POC Glucose 206 H 132 H Calcium 8.9 11/02/20 05:29 WBC RBC Hgb Hct MCV MCH MCHC RDW Plt Count Sodium Potassium Chloride Carbon Dioxide Anion Gap BUN Creatinine Estimated GFR BUN/Creatinine Ratio Glucose POC Glucose 137 H Calcium
[2020-11-02] MEDS ORDERED: FE FUMARATE/FA/MV, MIN COMB#15 CAP (HEMOCYTE PLUS) PO SCH (11:00)
[2020-11-02] MEDS ORDERED: MULTIVITAMINS,THER W-MINERALS TAB PO SCH (11:00)
--- NOTE | 2020-11-02 11:00 | Progress Note ---
Assessment and Plan 75 y/o female with acute respiratory failure secondary to altered mental state and hypoxemia, TRALI vs TACO (Transfusion Associated Circulatory Overload). 11/02/20: Bipap therapy at night. Nasal cannula durin the day. Pulm cox stable. Suggest transfer to Tele Floor. 11/01/20: Bipap therapy QHS, per daughter she should be wearing this but is noncompliant with therapy at home. BP control per primary. continue neb therapy for COPD and supplemental oxygen. Goal sat is 88-92%. Suggest checking labs. Will continue to follow. 10/31/20: Will extubate today. Follow up any new GI recs. No further lasix as of right now. Once extubated, should be stable for transfer to [facility] with telemetry. Stopped steroids. 1. Pulm- Given need for more blood, will hold on weaning for today and allow patient to be transfused up to goal. Continue sedation with diprovan. will need triglycerides checked either tomorrow or Wednesday if still intubated. Continue high peeps for now, and will start to wean once H/H at Goal. Appreciate Heme evaluation. Lasix given again today and will likely give again tonight. 2. GI-Ir Def anemia, chronic in nature and prior history of Gastric AVM's. No evidence of active bleeding at present. Await GI evaluation. Agree with GI evaluation. Ok with feeding patient unless GI has plans to scope in the near future. 3. Heme-anemia. Appreciate recs. Steroids started by heme so defer them on duration. Patient is not actively in COPD exacerbation. 4. Hold on DVT prophylaxis with drugs, SCDs only. Guarded prognosis Subjective Date of service: 11/02/20 Principal diagnosis: DU with hemorrhage Interval history: Wore Bipap last night. Back on nasal cannula at 2 liters. Objective Vital Signs - 12hr 11/01/20 11/02/20 11/02/20 23:01 00:00 00:01 Temperature 97.9 F Pulse Rate 92 H 85 85 Pulse Rate [ 89 From Monitor] Pulse Rate [ Throughout] Respiratory 18 14 Rate Respiratory Rate [ Throughout] Blood Pressure 149/69 136/58 O2 Sat by Pulse 100 100 Oximetry 11/02/20 11/02/20 11/02/20 00:29 01:01 02:01 Temperature Pulse Rate 84 92 H 88 Pulse Rate [ From Monitor] Pulse Rate [ Throughout] Respiratory 18 11 L 15 Rate Respiratory Rate [ Throughout] Blood Pressure 136/58 139/72 118/62 O2 Sat by Pulse 99 99 95 Oximetry 11/02/20 11/02/20 11/02/20 03:01 04:00 04:01 Temperature Pulse Rate 86 81 92 H Pulse Rate [ 89 From Monitor] Pulse Rate [ Throughout] Respiratory 24 13 Rate Respiratory Rate [ Throughout] Blood Pressure 141/65 147/81 O2 Sat by Pulse 98 96 Oximetry 11/02/20 11/02/20 11/02/20 04:04 05:01 06:01 Temperature 98.4 F Pulse Rate 106 H 97 H Pulse Rate [ From Monitor] Pulse Rate [ Throughout] Respiratory 15 24 Rate Respiratory Rate [ Throughout] Blood Pressure 183/145 183/145 O2 Sat by Pulse 100 Oximetry 11/02/20 11/02/20 11/02/20 07:01 08:00 08:27 Temperature 97.6 F Pulse Rate 97 H 91 H Pulse Rate [ From Monitor] Pulse Rate [ 94 H Throughout] Respiratory 21 20 Rate Respiratory 18 Rate [ Throughout] Blood Pressure 192/165 O2 Sat by Pulse 98 100 Oximetry 11/02/20 11/02/20 11/02/20 09:00 09:24 10:00 Temperature Pulse Rate 110 H 110 H 92 H Pulse Rate [ From Monitor] Pulse Rate [ Throughout] Respiratory 20 24 Rate Respiratory Rate [ Throughout] Blood Pressure 153/86 153/86 130/62 O2 Sat by Pulse 97 99 Oximetry Constitutional: no acute distress, appears uncomfortable, other (will wake up with light stimulation) Eyes: non-icteric ENT: other (orally intubated and sedated) Neck: supple Effort: mildly labored Ascultation: Bilateral: diminished breath sounds Percussion: Right: not dull Cardiovascular: regular rate and rhythm Gastrointestinal: normoactive bowel sounds, soft, non-tender Extremities: no edema, pink and warm, pulses normal CBC and BMP: 11/01/20 14:54 11/01/20 14:54 ABG, PT/INR, D-dimer: ABG ABG pH 7.678 (7.320-7.450) H 10/31/20 04:11 POC ABG pCO2 21.7 mmHg (32.0-48.0) L 10/31/20 04:11 ABG pCO2 43.7 mm Hg 10/29/20 10:35 POC ABG pO2 160.9 mmHg (83-108) H 10/31/20 04:11 ABG pO2 68.0 mm Hg (80.0-90.0) L 10/29/20 10:35 POC ABG HCO3 24.9 10/31/20 04:11 ABG O2 Saturation 93.8 % (95.0-99.0) L 10/29/20 10:35 PT/INR, D-dimer PT 16.6 Sec. (12.2-14.9) H 10/28/20 23:25 INR 1.34 (0.87-1.13) H 10/28/20 23:25 D-Dimer 798.02 ng/mlDDU (0-234) H 10/28/20 23:25 Abnormal lab findings: Abnormal Labs 10/28/20 10/28/20 10/28/20 23:25 23:25 23:25 WBC 13.2 H RBC 2.59 L Hgb 3.2 L* Hct 13.2 L* MCV 51 L MCH 12 L MCHC 25 L RDW 24.5 H Plt Count 504 H Seg Neuts % (Manual) 96.0 H Lymphocytes % (Manual) 2.0 L Nucleated RBC % Seg Neutrophils # Man 12.7 H Lymphocytes # (Manual) 0.3 L PT 16.6 H INR 1.34 H D-Dimer 798.02 H ABG pH POC ABG pCO2 POC ABG pO2 ABG pO2 ABG O2 Saturation ABG Base Excess ABG Hemoglobin ABG Oxyhemoglobin ABG Sodium ABG Potassium ABG Chloride ABG Glucose Oxyhemoglobin Sodium Potassium 5.2 H Chloride Carbon Dioxide 17 L BUN 30 H Creatinine 1.4 H Glucose 313 H POC Glucose Calcium 8.2 L Lactate Dehydrogenase NT-Pro-B Natriuret Pep 1685 H Albumin Arterial Blood Glucose Arterial Blood Ionized Calcium Crossmatch 10/29/20 10/29/20 10/29/20 00:20 04:24 08:41 WBC RBC Hgb Hct MCV MCH MCHC RDW Plt Count Seg Neuts % (Manual) Lymphocytes % (Manual) Nucleated RBC % Seg Neutrophils # Man Lymphocytes # (Manual) PT INR D-Dimer ABG pH 7.208 L POC ABG pCO2 POC ABG pO2 249.6 H ABG pO2 ABG O2 Saturation ABG Base Excess ABG Hemoglobin 5 L ABG Oxyhemoglobin ABG Sodium 135.1 L ABG Potassium 5.4 H ABG Chloride 108.0 H ABG Glucose 413 H Oxyhemoglobin Sodium Potassium Chloride Carbon Dioxide BUN Creatinine Glucose POC Glucose 367 H Calcium Lactate Dehydrogenase NT-Pro-B Natriuret Pep Albumin Arterial Blood Glucose 413 H Arterial Blood Ionized Calcium 4.5 L Crossmatch See Detail 10/29/20 10/29/20 10/29/20 10:35 12:05 12:12 WBC 11.8 H RBC 3.20 L Hgb 5.3 L* Hct 19.0 L* MCV 59 L MCH 17 L MCHC 28 L RDW 38.0 H Plt Count 469 H Seg Neuts % (Manual) 93.0 H Lymphocytes % (Manual) 6.0 L Nucleated RBC % Seg Neutrophils # Man 11.0 H Lymphocytes # (Manual) 0.7 L PT INR D-Dimer ABG pH 7.336 L POC ABG pCO2 POC ABG pO2 ABG pO2 68.0 L ABG O2 Saturation 93.8 L ABG Base Excess -2.7 L ABG Hemoglobin 6.0 L ABG Oxyhemoglobin ABG Sodium ABG Potassium ABG Chloride ABG Glucose Oxyhemoglobin 91.4 L Sodium Potassium Chloride Carbon Dioxide BUN Creatinine Glucose POC Glucose 313 H Calcium Lactate Dehydrogenase NT-Pro-B Natriuret Pep Albumin Arterial Blood Glucose Arterial Blood Ionized Calcium Crossmatch 10/29/20 10/29/20 10/29/20 17:50 18:37 23:14 WBC RBC Hgb Hct MCV MCH MCHC RDW Plt Count Seg Neuts % (Manual) Lymphocytes % (Manual) Nucleated RBC % Seg Neutrophils # Man Lymphocytes # (Manual) PT INR D-Dimer ABG pH POC ABG pCO2 POC ABG pO2 ABG pO2 ABG O2 Saturation ABG Base Excess ABG Hemoglobin ABG Oxyhemoglobin ABG Sodium ABG Potassium ABG Chloride ABG Glucose Oxyhemoglobin Sodium Potassium Chloride Carbon Dioxide BUN Creatinine Glucose POC Glucose 201 H 188 H Calcium Lactate Dehydrogenase 355 H NT-Pro-B Natriuret Pep Albumin Arterial Blood Glucose Arterial Blood Ionized Calcium Crossmatch 10/30/20 10/30/20 10/30/20 04:36 05:13 06:13 WBC 12.9 H RBC 3.23 L Hgb 5.8 L* Hct 20.2 L MCV 63 L MCH 18 L MCHC 29 L RDW 40.0 H Plt Count Seg Neuts % (Manual) 92.0 H Lymphocytes % (Manual) 3.0 L Nucleated RBC % 2.0 H Seg Neutrophils # Man 11.9 H Lymphocytes # (Manual) 0.4 L PT INR D-Dimer ABG pH POC ABG pCO2 POC ABG pO2 68.2 L ABG pO2 ABG O2 Saturation ABG Base Excess ABG Hemoglobin 6.6 L ABG Oxyhemoglobin 91.9 L ABG Sodium ABG Potassium 5.1 H ABG Chloride 109.0 H ABG Glucose 236 H Oxyhemoglobin Sodium Potassium Chloride Carbon Dioxide BUN Creatinine Glucose POC Glucose 221 H Calcium Lactate Dehydrogenase NT-Pro-B Natriuret Pep Albumin Arterial Blood Glucose 236 H Arterial Blood Ionized Calcium 4.4 L Crossmatch 10/30/20 10/30/20 10/30/20 06:13 11:50 17:13 WBC RBC Hgb 7.8 L Hct 26.1 L MCV MCH MCHC RDW Plt Count Seg Neuts % (Manual) Lymphocytes % (Manual) Nucleated RBC % Seg Neutrophils # Man Lymphocytes # (Manual) PT INR D-Dimer ABG pH POC ABG pCO2 POC ABG pO2 ABG pO2 ABG O2 Saturation ABG Base Excess ABG Hemoglobin ABG Oxyhemoglobin ABG Sodium ABG Potassium ABG Chloride ABG Glucose Oxyhemoglobin Sodium Potassium 5.2 H Chloride 108.4 H Carbon Dioxide BUN 28 H Creatinine Glucose 244 H POC Glucose 226 H Calcium 8.1 L Lactate Dehydrogenase NT-Pro-B Natriuret Pep Albumin Arterial Blood Glucose Arterial Blood Ionized Calcium Crossmatch 10/30/20 10/30/20 10/31/20 17:57 23:20 04:11 WBC RBC Hgb Hct MCV MCH MCHC RDW Plt Count Seg Neuts % (Manual) Lymphocytes % (Manual) Nucleated RBC % Seg Neutrophils # Man Lymphocytes # (Manual) PT INR D-Dimer ABG pH 7.678 H POC ABG pCO2 21.7 L POC ABG pO2 160.9 H ABG pO2 ABG O2 Saturation ABG Base Excess ABG Hemoglobin 7.4 L ABG Oxyhemoglobin ABG Sodium ABG Potassium 4.7 H ABG Chloride 108.0 H ABG Glucose 260 H Oxyhemoglobin Sodium Potassium Chloride Carbon Dioxide BUN Creatinine Glucose POC Glucose 232 H 210 H Calcium Lactate Dehydrogenase NT-Pro-B Natriuret Pep Albumin Arterial Blood Glucose 260 H Arterial Blood Ionized Calcium 4.4 L Crossmatch 10/31/20 10/31/20 10/31/20 05:02 05:10 05:10 WBC 15.6 H RBC Hgb 7.8 L Hct 26.8 L MCV 66 L MCH 19 L MCHC 29 L RDW 39.1 H Plt Count Seg Neuts % (Manual) 97.0 H Lymphocytes % (Manual) 2.0 L Nucleated RBC % 3.0 H Seg Neutrophils # Man 15.1 H Lymphocytes # (Manual) 0.3 L PT INR D-Dimer ABG pH POC ABG pCO2 POC ABG pO2 ABG pO2 ABG O2 Saturation ABG Base Excess ABG Hemoglobin ABG Oxyhemoglobin ABG Sodium ABG Potassium ABG Chloride ABG Glucose Oxyhemoglobin Sodium Potassium Chloride Carbon Dioxide BUN 33 H Creatinine Glucose 259 H POC Glucose 255 H Calcium Lactate Dehydrogenase NT-Pro-B Natriuret Pep Albumin 3.8 L Arterial Blood Glucose Arterial Blood Ionized Calcium Crossmatch 10/31/20 10/31/20 11/01/20 11:50 17:11 06:29 WBC RBC Hgb Hct MCV MCH MCHC RDW Plt Count Seg Neuts % (Manual) Lymphocytes % (Manual) Nucleated RBC % Seg Neutrophils # Man Lymphocytes # (Manual) PT INR D-Dimer ABG pH POC ABG pCO2 POC ABG pO2 ABG pO2 ABG O2 Saturation ABG Base Excess ABG Hemoglobin ABG Oxyhemoglobin ABG Sodium ABG Potassium ABG Chloride ABG Glucose Oxyhemoglobin Sodium Potassium Chloride Carbon Dioxide BUN Creatinine Glucose POC Glucose 259 H 203 H 178 H Calcium Lactate Dehydrogenase NT-Pro-B Natriuret Pep Albumin Arterial Blood Glucose Arterial Blood Ionized Calcium Crossmatch 11/01/20 11/01/20 11/01/20 11:57 14:54 14:54 WBC 13.4 H RBC Hgb 8.7 L Hct 30.0 L MCV 66 L MCH 19 L MCHC 29 L RDW 39.5 H Plt Count Seg Neuts % (Manual) Lymphocytes % (Manual) Nucleated RBC % Seg Neutrophils # Man Lymphocytes # (Manual) PT INR D-Dimer ABG pH POC ABG pCO2 POC ABG pO2 ABG pO2 ABG O2 Saturation ABG Base Excess ABG Hemoglobin ABG Oxyhemoglobin ABG Sodium ABG Potassium ABG Chloride ABG Glucose Oxyhemoglobin Sodium 150 H D Potassium Chloride 111.4 H Carbon Dioxide BUN 31 H Creatinine Glucose 221 H POC Glucose 255 H Calcium Lactate Dehydrogenase NT-Pro-B Natriuret Pep Albumin Arterial Blood Glucose Arterial Blood Ionized Calcium Crossmatch 11/01/20 11/02/20 11/02/20 18:47 00:08 05:29 WBC RBC Hgb Hct MCV MCH MCHC RDW Plt Count Seg Neuts % (Manual) Lymphocytes % (Manual) Nucleated RBC % Seg Neutrophils # Man Lymphocytes # (Manual) PT INR D-Dimer ABG pH POC ABG pCO2 POC ABG pO2 ABG pO2 ABG O2 Saturation ABG Base Excess ABG Hemoglobin ABG Oxyhemoglobin ABG Sodium ABG Potassium ABG Chloride ABG Glucose Oxyhemoglobin Sodium Potassium Chloride Carbon Dioxide BUN Creatinine Glucose POC Glucose 206 H 132 H 137 H Calcium Lactate Dehydrogenase NT-Pro-B Natriuret Pep Albumin Arterial Blood Glucose Arterial Blood Ionized Calcium Crossmatch
[2020-11-02 11:58] LABS: Hematocrit 31.5 % (30.3-42.9); Hemoglobin 9.5 gm/dl (10.1-14.3); Mean Corpuscular HGB Conc 30 % (30-34); Platelet Count 339 K/mm3 (140-440); Red Blood Count 4.75 M/mm3 (3.65-5.03)
[2020-11-02] MEDS: MULTIVITAMINS,THER W-MINERALS TAB PO SCH (12:00)
[2020-11-02 12:05] LABS: Mean Corpuscular Volume 66 fl (79-97); Red Cell Distribution Width 39.1 % (13.2-15.2)
[2020-11-02 12:19] LABS: Blood Urea Nitrogen 26 mg/dL (7-17); Calcium 8.9 mg/dL (8.4-10.2); Hemolysis Index 0
[2020-11-02 12:24] LABS: BUN/Creatinine Ratio 37
[2020-11-02] MEDS: ALPRAZolam 0.5 MG TAB PO PRN ×2 (13:30→22:17)
--- NOTE | 2020-11-02 21:43 | Progress Note ---
Assessment and Plan - Patient Problems (1) Acute respiratory failure with hypoxia Current Visit: Yes Status: Acute Plan to address problem: Patient was intubated yesterday Continue duo nebs Continue steroids Continue IV antibiotics Patient extubated BiPAP especially at nighttime and as needed (2) Symptomatic anemia Current Visit: Yes Status: Acute Plan to address problem: Patient being transfused Keep the hematocrit above 24 Hematology consult appreciated Hemoglobin at 9.5 and hematocrit at 31.5 Patient to be transferred to regular floor (3) COPD with acute exacerbation Current Visit: Yes Status: Acute Plan to address problem: Continue duo nebs IV antibiotics and steroids (4) GI bleed Current Visit: No Status: Chronic Qualifiers: GI bleed type/associated pathology: unspecified gastrointestinal hemorrhage type Qualified Code(s): K92.2 - Gastrointestinal hemorrhage, unspecified Plan to address problem: Patient has history of gastric AVMs for which she did not go for follow-up Transfuse as necessary to keep the hemoglobin above 8 and hematocrit about 24 (5) Metabolic encephalopathy Current Visit: No Status: Acute Plan to address problem: Severe confusion Possibly secondary to hypoxia and transfusion reaction Hematology consult appreciated (6) HTN (hypertension) Current Visit: No Status: Chronic Qualifiers: Hypertension type: essential hypertension Qualified Code(s): I10 - Essential (primary) hypertension Plan to address problem: Continue antihypertensives (7) Hyperlipidemia Current Visit: Yes Status: Chronic Qualifiers: Hyperlipidemia type: mixed hyperlipidemia Qualified Code(s): E78.2 - Mixed hyperlipidemia Plan to address problem: Continue statins (8) Transfusion reaction Current Visit: Yes Status: Acute Qualifiers: Encounter type: initial encounter Qualified Code(s): T80.92XA - Unspecified transfusion reaction, initial encounter Plan to address problem: Hematology consult requested (9) Depression Current Visit: Yes Status: Chronic Qualifiers: Depression Type: dysthymia Qualified Code(s): F34.1 - Dysthymic disorder Plan to address problem: Patient on citalopram 40 mg daily (10) Generalized anxiety disorder Current Visit: Yes Status: Acute Plan to address problem: Patient on anxiolytics from home (11) DVT prophylaxis Current Visit: No Status: Acute Plan to address problem: On SCDs and GI prophylaxis because of the low hemoglobin and tendency to bleed Subjective Date of service: 10/30/20 Principal diagnosis: Severe anemia, transfusion reaction Interval history: Subjective Date of service: 11/02/20 Principal diagnosis: DU with hemorrhage Interval history: 75-year-old female with a past medical history of COPD on 3 L of home oxygen , multiple sclerosis, hypertension, elevated cholesterol was brought to the to the hospital complaining of intermittent shortness of breath progressively worsening the last several weeks. Symptoms are especially worse with minimal exertion. Patient using bronchodilators intermittently with minimal and only temporary improvement. patient was admitted October 2017 with acute on chronic respiratory failure, severe anemia required several units of blood and had a GI work-up that included hiatal hernia, and small gastric ulceration, and a 5 mm AVM a duodenal bulb status post APC (argon plasma coagulation) treatment. Patient denied any rectal bleeding. In the emergency room patient hemoglobin is 3.1 hematocrit 13.2. Day #2 10/30/2020 Patient was transfused multiple units Patient went into respiratory distress and altered mental status and was intubated yesterday. Family Medicine Chair consult requested by the previous team Patient intubated Possible transfusion reaction Low hemoglobin and hematocrit possibly secondary to AVMs by history Patient has history of gastric AVMs No melanotic stools Day #3 Still intubated Patient's hemoglobin is improved to around 8.0 Weaning in progress Day #4 Patient extubated Patient needs BiPAP especially at nighttime patient is noncompliant with it Patient is on home oxygen Day #5 Patient extubated Patient still short of breath Otherwise doing well hemoglobin is 9.5 and hematocrit is 31.5 No melanotic stools GI work-up when more stable Pulmonary and GI consults appreciated Objective - Constitutional Vitals: Vital Signs - 12hr 11/02/20 11/02/20 11/02/20 10:00 11:00 12:00 Temperature Pulse Rate 92 H 104 H 94 H Pulse Rate [ Throughout] Respiratory 24 20 Rate Respiratory Rate [ Throughout] Blood Pressure 130/62 152/76 O2 Sat by Pulse 99 94 Oximetry 11/02/20 11/02/20 11/02/20 12:01 13:01 14:01 Temperature Pulse Rate 93 H 100 H 94 H Pulse Rate [ Throughout] Respiratory 22 22 18 Rate Respiratory Rate [ Throughout] Blood Pressure 156/66 157/80 136/103 O2 Sat by Pulse 99 98 100 Oximetry 11/02/20 11/02/20 11/02/20 15:01 16:00 16:01 Temperature Pulse Rate 95 H 105 H 98 H Pulse Rate [ Throughout] Respiratory 20 11 L Rate Respiratory Rate [ Throughout] Blood Pressure 112/52 120/71 O2 Sat by Pulse 99 98 Oximetry 11/02/20 11/02/20 11/02/20 17:01 18:04 21:00 Temperature 97.8 F Pulse Rate 105 H Pulse Rate [ 94 H Throughout] Respiratory 22 Rate Respiratory 18 Rate [ Throughout] Blood Pressure 120/71 O2 Sat by Pulse 99 Oximetry General appearance: Present: no acute distress, well-nourished - EENT Eyes: PERRL, EOM intact ENT: hearing intact, clear oral mucosa Ears: bilateral: normal - Neck Neck: supple, normal ROM - Respiratory Respiratory effort: normal Respiratory: bilateral: CTA - Breasts Breasts: normal - Cardiovascular Heart rate: 78 Rhythm: regular Heart Sounds: Present: S1 & S2. Absent: gallop, rub Extremities: pulses intact, No edema, normal color, Full ROM - Gastrointestinal General gastrointestinal: Present: soft, non-tender, non-distended, normal bowel sounds - Genitourinary Female genitourinary: normal - Integumentary Integumentary: clear, warm, dry - Musculoskeletal Musculoskeletal: 1, strength equal bilaterally - Neurologic Neurologic: moves all extremities - Psychiatric Psychiatric: memory intact, appropriate mood/affect, intact judgment & insight - Labs CBC & Chem 7: 11/03/20 07:11 11/03/20 07:11 Labs: Abnormal lab results 11/02/20 11/02/20 11/02/20 Range/Units 00:08 05:29 11:34 Hgb 9.5 L (10.1-14.3) gm/dl MCV 66 L (79-97) fl MCH 20 L (28-32) pg RDW 39.1 H (13.2-15.2) % Sodium (137-145) mmol/L Chloride (98-107) mmol/L BUN (7-17) mg/dL Glucose (65-100) mg/dL POC Glucose 132 H 137 H (70-105) mg/dL 11/02/20 11/02/20 Range/Units 11:34 17:34 Hgb (10.1-14.3) gm/dl MCV (79-97) fl MCH (28-32) pg RDW (13.2-15.2) % Sodium 150 H (137-145) mmol/L Chloride 112.3 H (98-107) mmol/L BUN 26 H (7-17) mg/dL Glucose 284 H (65-100) mg/dL POC Glucose 118 H (70-105) mg/dL HEART Score - HEART Score Troponin: Troponin T < 0.010 ng/mL (0.00-0.029) 10/28/20 23:36
[2020-11-02] MEDS: PRAVASTATIN 40 MG TAB PO SCH (22:18)
[2020-11-03] MEDS: INSULIN LISPRO 100 UNIT/ML SUB-Q SCH ×5 (06:51→18:59)
[2020-11-03 07:18] LABS: Mean Corpuscular HGB Conc 30 % (30-34); Platelet Count 293 K/mm3 (140-440); Red Blood Count 4.23 M/mm3 (3.65-5.03)
[2020-11-03 07:26] LABS: Hematocrit 27.8 % (30.3-42.9); Hemoglobin 8.2 gm/dl (10.1-14.3); Mean Corpuscular Volume 66 fl (79-97); Red Cell Distribution Width 39.7 % (13.2-15.2)
[2020-11-03 07:38] LABS: Alanine Aminotransferase 41 units/L (7-56); Albumin 3.2 g/dL (3.9-5); Blood Urea Nitrogen 20 mg/dL (7-17); Hemolysis Index 0
[2020-11-03 07:39] LABS: BUN/Creatinine Ratio 33
[2020-11-03] MEDS: BUDESONIDE 0.5 MG/2 ML NEBU IH SCH ×2 (07:59→20:32)
[2020-11-03] MEDS: ARFORMOTEROL 15 MCG/2 ML NEBU IH SCH ×2 (07:59→20:32)
[2020-11-03 09:33] LABS: Hypochromasia 3+; Target Cells 1+; Tear Drop Cells 1+; Total Cells Counted 100
[2020-11-03 09:34] LABS: Platelet Estimate Consistent w Auto
[2020-11-03] MEDS: D5W/0.9% NACL 1,000 ML IV SCH ×2 (11:30→22:17)
--- NOTE | 2020-11-03 12:33 | Progress Note ---
Assessment and Plan 75 y/o female with acute respiratory failure secondary to altered mental state and hypoxemia, TRALI vs TACO (Transfusion Associated Circulatory Overload). 11/03/20: continue bipap QHS, cannula during the day. Appears to be a baseline pulmonary cox. Will see PRN. 11/02/20: Bipap therapy at night. Nasal cannula durin the day. Pulm cox stable. Suggest transfer to [facility] Floor. 11/01/20: Bipap therapy QHS, per daughter she should be wearing this but is noncompliant with therapy at home. BP control per primary. continue neb therapy for COPD and supplemental oxygen. Goal sat is 88-92%. Suggest checking labs. Will continue to follow. 10/31/20: Will extubate today. Follow up any new GI recs. No further lasix as of right now. Once extubated, should be stable for transfer to [facility] [place]. Stopped steroids. 1. Pulm- Given need for more blood, will hold on weaning for today and allow patient to be transfused up to goal. Continue sedation with diprovan. will need triglycerides checked either tomorrow or Wednesday if still intubated. Continue high peeps for now, and will start to wean once H/H at Goal. A ppreciate Heme evaluation. Lasix given again today and will likely give again tonight. 2. GI-Ir Def anemia, chronic in nature and prior history of Gastric AVM's. No evidence of active bleeding at present. Await GI evaluation. Agree with GI evaluation. Ok with feeding patient unless GI has plans to scope in the near future. 3. Heme-anemia. Appreciate recs. Steroids started by heme so defer them on duration. Patient is not actively in COPD exacerbation. 4. Hold on DVT prophylaxis with drugs, SCDs only. Guarded prognosis Subjective Date of service: 11/03/20 Principal diagnosis: DU with hemorrhage Interval history: Patient appears to be back at pulmonary baseline. Tolerating PPV at night. Although no documentation of her wearing last night. Objective Vital Signs - 12hr 11/03/20 11/03/20 11/03/20 01:01 02:00 03:00 Temperature Pulse Rate 93 H 93 H 84 Pulse Rate [ Anterior Bilateral Throughout] Pulse Rate [ From Monitor] Respiratory Rate Respiratory Rate [Anterior Bilateral Throughout] Respiratory Rate [Back] Blood Pressure 59/43 177/83 115/77 O2 Sat by Pulse 100 100 100 Oximetry 11/03/20 11/03/20 11/03/20 03:37 03:40 03:41 Temperature 98.0 F Pulse Rate Pulse Rate [ Anterior Bilateral Throughout] Pulse Rate [ 89 From Monitor] Respiratory 20 Rate Respiratory Rate [Anterior Bilateral Throughout] Respiratory 20 Rate [Back] Blood Pressure O2 Sat by Pulse 100 Oximetry 11/03/20 11/03/20 11/03/20 03:54 04:01 05:00 Temperature Pulse Rate 89 87 Pulse Rate [ Anterior Bilateral Throughout] Pulse Rate [ From Monitor] Respiratory Rate Respiratory Rate [Anterior Bilateral Throughout] Respiratory Rate [Back] Blood Pressure 130/98 133/64 O2 Sat by Pulse 99 Oximetry 11/03/20 11/03/20 11/03/20 06:00 07:01 07:59 Temperature Pulse Rate 78 84 Pulse Rate [ 82 Anterior Bilateral Throughout] Pulse Rate [ From Monitor] Respiratory 20 18 Rate Respiratory 22 Rate [Anterior Bilateral Throughout] Respiratory Rate [Back] Blood Pressure 122/56 136/58 O2 Sat by Pulse 98 100 Oximetry 11/03/20 08:00 Temperature Pulse Rate 93 H Pulse Rate [ Anterior Bilateral Throughout] Pulse Rate [ From Monitor] Respiratory 16 Rate Respiratory Rate [Anterior Bilateral Throughout] Respiratory Rate [Back] Blood Pressure 137/61 O2 Sat by Pulse 93 Oximetry Constitutional: no acute distress, appears uncomfortable, other (will wake up with light stimulation) Eyes: non-icteric ENT: other (orally intubated and sedated) Neck: supple Effort: mildly labored Ascultation: Bilateral: diminished breath sounds Percussion: Right: not dull Cardiovascular: regular rate and rhythm Gastrointestinal: normoactive bowel sounds, soft, non-tender Extremities: no edema, pink and warm, pulses normal CBC and BMP: 11/03/20 07:11 11/03/20 07:11 ABG, PT/INR, D-dimer: ABG ABG pH 7.678 (7.320-7.450) H 10/31/20 04:11 POC ABG pCO2 21.7 mmHg (32.0-48.0) L 10/31/20 04:11 ABG pCO2 43.7 mm Hg 10/29/20 10:35 POC ABG pO2 160.9 mmHg (83-108) H 10/31/20 04:11 ABG pO2 68.0 mm Hg (80.0-90.0) L 10/29/20 10:35 POC ABG HCO3 24.9 10/31/20 04:11 ABG O2 Saturation 93.8 % (95.0-99.0) L 10/29/20 10:35 PT/INR, D-dimer PT 16.6 Sec. (12.2-14.9) H 10/28/20 23:25 INR 1.34 (0.87-1.13) H 10/28/20 23:25 D-Dimer 798.02 ng/mlDDU (0-234) H 10/28/20 23:25 Abnormal lab findings: Abnormal Labs 10/28/20 10/28/20 10/28/20 23:25 23:25 23:25 WBC 13.2 H RBC 2.59 L Hgb 3.2 L* Hct 13.2 L* MCV 51 L MCH 12 L MCHC 25 L RDW 24.5 H Plt Count 504 H Seg Neuts % (Manual) 96.0 H Lymphocytes % (Manual) 2.0 L Nucleated RBC % Seg Neutrophils # Man 12.7 H Lymphocytes # (Manual) 0.3 L PT 16.6 H INR 1.34 H D-Dimer 798.02 H ABG pH POC ABG pCO2 POC ABG pO2 ABG pO2 ABG O2 Saturation ABG Base Excess ABG Hemoglobin ABG Oxyhemoglobin ABG Sodium ABG Potassium ABG Chloride ABG Glucose Oxyhemoglobin Sodium Potassium 5.2 H Chloride Carbon Dioxide 17 L BUN 30 H Creatinine 1.4 H Glucose 313 H POC Glucose Calcium 8.2 L Lactate Dehydrogenase NT-Pro-B Natriuret Pep 1685 H Total Protein Albumin Arterial Blood Glucose Arterial Blood Ionized Calcium Crossmatch 10/29/20 10/29/20 10/29/20 00:20 04:24 08:41 WBC RBC Hgb Hct MCV MCH MCHC RDW Plt Count Seg Neuts % (Manual) Lymphocytes % (Manual) Nucleated RBC % Seg Neutrophils # Man Lymphocytes # (Manual) PT INR D-Dimer ABG pH 7.208 L POC ABG pCO2 POC ABG pO2 249.6 H ABG pO2 ABG O2 Saturation ABG Base Excess ABG Hemoglobin 5 L ABG Oxyhemoglobin ABG Sodium 135.1 L ABG Potassium 5.4 H ABG Chloride 108.0 H ABG Glucose 413 H Oxyhemoglobin Sodium Potassium Chloride Carbon Dioxide BUN Creatinine Glucose POC Glucose 367 H Calcium Lactate Dehydrogenase NT-Pro-B Natriuret Pep Total Protein Albumin Arterial Blood Glucose 413 H Arterial Blood Ionized Calcium 4.5 L Crossmatch See Detail 10/29/20 10/29/20 10/29/20 10:35 12:05 12:12 WBC 11.8 H RBC 3.20 L Hgb 5.3 L* Hct 19.0 L* MCV 59 L MCH 17 L MCHC 28 L RDW 38.0 H Plt Count 469 H Seg Neuts % (Manual) 93.0 H Lymphocytes % (Manual) 6.0 L Nucleated RBC % Seg Neutrophils # Man 11.0 H Lymphocytes # (Manual) 0.7 L PT INR D-Dimer ABG pH 7.336 L POC ABG pCO2 POC ABG pO2 ABG pO2 68.0 L ABG O2 Saturation 93.8 L ABG Base Excess -2.7 L ABG Hemoglobin 6.0 L ABG Oxyhemoglobin ABG Sodium ABG Potassium ABG Chloride ABG Glucose Oxyhemoglobin 91.4 L Sodium Potassium Chloride Carbon Dioxide BUN Creatinine Glucose POC Glucose 313 H Calcium Lactate Dehydrogenase NT-Pro-B Natriuret Pep Total Protein Albumin Arterial Blood Glucose Arterial Blood Ionized Calcium Crossmatch 10/29/20 10/29/20 10/29/20 17:50 18:37 23:14 WBC RBC Hgb Hct MCV MCH MCHC RDW Plt Count Seg Neuts % (Manual) Lymphocytes % (Manual) Nucleated RBC % Seg Neutrophils # Man Lymphocytes # (Manual) PT INR D-Dimer ABG pH POC ABG pCO2 POC ABG pO2 ABG pO2 ABG O2 Saturation ABG Base Excess ABG Hemoglobin ABG Oxyhemoglobin ABG Sodium ABG Potassium ABG Chloride ABG Glucose Oxyhemoglobin Sodium Potassium Chloride Carbon Dioxide BUN Creatinine Glucose POC Glucose 201 H 188 H Calcium Lactate Dehydrogenase 355 H NT-Pro-B Natriuret Pep Total Protein Albumin Arterial Blood Glucose Arterial Blood Ionized Calcium Crossmatch 10/30/20 10/30/20 10/30/20 04:36 05:13 06:13 WBC 12.9 H RBC 3.23 L Hgb 5.8 L* Hct 20.2 L MCV 63 L MCH 18 L MCHC 29 L RDW 40.0 H Plt Count Seg Neuts % (Manual) 92.0 H Lymphocytes % (Manual) 3.0 L Nucleated RBC % 2.0 H Seg Neutrophils # Man 11.9 H Lymphocytes # (Manual) 0.4 L PT INR D-Dimer ABG pH POC ABG pCO2 POC ABG pO2 68.2 L ABG pO2 ABG O2 Saturation ABG Base Excess ABG Hemoglobin 6.6 L ABG Oxyhemoglobin 91.9 L ABG Sodium ABG Potassium 5.1 H ABG Chloride 109.0 H ABG Glucose 236 H Oxyhemoglobin Sodium Potassium Chloride Carbon Dioxide BUN Creatinine Glucose POC Glucose 221 H Calcium Lactate Dehydrogenase NT-Pro-B Natriuret Pep Total Protein Albumin Arterial Blood Glucose 236 H Arterial Blood Ionized Calcium 4.4 L Crossmatch 10/30/20 10/30/20 10/30/20 06:13 11:50 17:13 WBC RBC Hgb 7.8 L Hct 26.1 L MCV MCH MCHC RDW Plt Count Seg Neuts % (Manual) Lymphocytes % (Manual) Nucleated RBC % Seg Neutrophils # Man Lymphocytes # (Manual) PT INR D-Dimer ABG pH POC ABG pCO2 POC ABG pO2 ABG pO2 ABG O2 Saturation ABG Base Excess ABG Hemoglobin ABG Oxyhemoglobin ABG Sodium ABG Potassium ABG Chloride ABG Glucose Oxyhemoglobin Sodium Potassium 5.2 H Chloride 108.4 H Carbon Dioxide BUN 28 H Creatinine Glucose 244 H POC Glucose 226 H Calcium 8.1 L Lactate Dehydrogenase NT-Pro-B Natriuret Pep Total Protein Albumin Arterial Blood Glucose Arterial Blood Ionized Calcium Crossmatch 10/30/20 10/30/20 10/31/20 17:57 23:20 04:11 WBC RBC Hgb Hct MCV MCH MCHC RDW Plt Count Seg Neuts % (Manual) Lymphocytes % (Manual) Nucleated RBC % Seg Neutrophils # Man Lymphocytes # (Manual) PT INR D-Dimer ABG pH 7.678 H POC ABG pCO2 21.7 L POC ABG pO2 160.9 H ABG pO2 ABG O2 Saturation ABG Base Excess ABG Hemoglobin 7.4 L ABG Oxyhemoglobin ABG Sodium ABG Potassium 4.7 H ABG Chloride 108.0 H ABG Glucose 260 H Oxyhemoglobin Sodium Potassium Chloride Carbon Dioxide BUN Creatinine Glucose POC Glucose 232 H 210 H Calcium Lactate Dehydrogenase NT-Pro-B Natriuret Pep Total Protein Albumin Arterial Blood Glucose 260 H Arterial Blood Ionized Calcium 4.4 L Crossmatch 10/31/20 10/31/20 10/31/20 05:02 05:10 05:10 WBC 15.6 H RBC Hgb 7.8 L Hct 26.8 L MCV 66 L MCH 19 L MCHC 29 L RDW 39.1 H Plt Count Seg Neuts % (Manual) 97.0 H Lymphocytes % (Manual) 2.0 L Nucleated RBC % 3.0 H Seg Neutrophils # Man 15.1 H Lymphocytes # (Manual) 0.3 L PT INR D-Dimer ABG pH POC ABG pCO2 POC ABG pO2 ABG pO2 ABG O2 Saturation ABG Base Excess ABG Hemoglobin ABG Oxyhemoglobin ABG Sodium ABG Potassium ABG Chloride ABG Glucose Oxyhemoglobin Sodium Potassium Chloride Carbon Dioxide BUN 33 H Creatinine Glucose 259 H POC Glucose 255 H Calcium Lactate Dehydrogenase NT-Pro-B Natriuret Pep Total Protein Albumin 3.8 L Arterial Blood Glucose Arterial Blood Ionized Calcium Crossmatch 10/31/20 10/31/20 11/01/20 11:50 17:11 06:29 WBC RBC Hgb Hct MCV MCH MCHC RDW Plt Count Seg Neuts % (Manual) Lymphocytes % (Manual) Nucleated RBC % Seg Neutrophils # Man Lymphocytes # (Manual) PT INR D-Dimer ABG pH POC ABG pCO2 POC ABG pO2 ABG pO2 ABG O2 Saturation ABG Base Excess ABG Hemoglobin ABG Oxyhemoglobin ABG Sodium ABG Potassium ABG Chloride ABG Glucose Oxyhemoglobin Sodium Potassium Chloride Carbon Dioxide BUN Creatinine Glucose POC Glucose 259 H 203 H 178 H Calcium Lactate Dehydrogenase NT-Pro-B Natriuret Pep Total Protein Albumin Arterial Blood Glucose Arterial Blood Ionized Calcium Crossmatch 11/01/20 11/01/20 11/01/20 11:57 14:54 14:54 WBC 13.4 H RBC Hgb 8.7 L Hct 30.0 L MCV 66 L MCH 19 L MCHC 29 L RDW 39.5 H Plt Count Seg Neuts % (Manual) Lymphocytes % (Manual) Nucleated RBC % Seg Neutrophils # Man Lymphocytes # (Manual) PT INR D-Dimer ABG pH POC ABG pCO2 POC ABG pO2 ABG pO2 ABG O2 Saturation ABG Base Excess ABG Hemoglobin ABG Oxyhemoglobin ABG Sodium ABG Potassium ABG Chloride ABG Glucose Oxyhemoglobin Sodium 150 H D Potassium Chloride 111.4 H Carbon Dioxide BUN 31 H Creatinine Glucose 221 H POC Glucose 255 H Calcium Lactate Dehydrogenase NT-Pro-B Natriuret Pep Total Protein Albumin Arterial Blood Glucose Arterial Blood Ionized Calcium Crossmatch 11/01/20 11/02/20 11/02/20 18:47 00:08 05:29 WBC RBC Hgb Hct MCV MCH MCHC RDW Plt Count Seg Neuts % (Manual) Lymphocytes % (Manual) Nucleated RBC % Seg Neutrophils # Man Lymphocytes # (Manual) PT INR D-Dimer ABG pH POC ABG pCO2 POC ABG pO2 ABG pO2 ABG O2 Saturation ABG Base Excess ABG Hemoglobin ABG Oxyhemoglobin ABG Sodium ABG Potassium ABG Chloride ABG Glucose Oxyhemoglobin Sodium Potassium Chloride Carbon Dioxide BUN Creatinine Glucose POC Glucose 206 H 132 H 137 H Calcium Lactate Dehydrogenase NT-Pro-B Natriuret Pep Total Protein Albumin Arterial Blood Glucose Arterial Blood Ionized Calcium Crossmatch 11/02/20 11/02/20 11/02/20 11:34 11:34 17:34 WBC RBC Hgb 9.5 L Hct MCV 66 L MCH 20 L MCHC RDW 39.1 H Plt Count Seg Neuts % (Manual) Lymphocytes % (Manual) Nucleated RBC % Seg Neutrophils # Man Lymphocytes # (Manual) PT INR D-Dimer ABG pH POC ABG pCO2 POC ABG pO2 ABG pO2 ABG O2 Saturation ABG Base Excess ABG Hemoglobin ABG Oxyhemoglobin ABG Sodium ABG Potassium ABG Chloride ABG Glucose Oxyhemoglobin Sodium 150 H Potassium Chloride 112.3 H Carbon Dioxide BUN 26 H Creatinine Glucose 284 H POC Glucose 118 H Calcium Lactate Dehydrogenase NT-Pro-B Natriuret Pep Total Protein Albumin Arterial Blood Glucose Arterial Blood Ionized Calcium Crossmatch 11/02/20 11/03/20 11/03/20 23:30 05:11 07:11 WBC RBC Hgb 8.2 L Hct 27.8 L MCV 66 L MCH 19 L MCHC RDW 39.7 H Plt Count Seg Neuts % (Manual) 87.0 H Lymphocytes % (Manual) 12.0 L Nucleated RBC % Seg Neutrophils # Man Lymphocytes # (Manual) 1.1 L PT INR D-Dimer ABG pH POC ABG pCO2 POC ABG pO2 ABG pO2 ABG O2 Saturation ABG Base Excess ABG Hemoglobin ABG Oxyhemoglobin ABG Sodium ABG Potassium ABG Chloride ABG Glucose Oxyhemoglobin Sodium Potassium Chloride Carbon Dioxide BUN Creatinine Glucose POC Glucose 155 H 124 H Calcium Lactate Dehydrogenase NT-Pro-B Natriuret Pep Total Protein Albumin Arterial Blood Glucose Arterial Blood Ionized Calcium Crossmatch 11/03/20 07:11 WBC RBC Hgb Hct MCV MCH MCHC RDW Plt Count Seg Neuts % (Manual) Lymphocytes % (Manual) Nucleated RBC % Seg Neutrophils # Man Lymphocytes # (Manual) PT INR D-Dimer ABG pH POC ABG pCO2 POC ABG pO2 ABG pO2 ABG O2 Saturation ABG Base Excess ABG Hemoglobin ABG Oxyhemoglobin ABG Sodium ABG Potassium ABG Chloride ABG Glucose Oxyhemoglobin Sodium Potassium Chloride 107.7 H Carbon Dioxide 31 H BUN 20 H Creatinine Glucose 143 H POC Glucose Calcium 8.0 L Lactate Dehydrogenase NT-Pro-B Natriuret Pep Total Protein 5.8 L Albumin 3.2 L Arterial Blood Glucose Arterial Blood Ionized Calcium Crossmatch
[2020-11-03] MEDS: METOPROLOL TARTRATE 25 MG TAB PO SCH ×2 (12:57→22:12)
[2020-11-03] MEDS: MULTIVITAMINS,THER W-MINERALS TAB PO SCH (12:57)
[2020-11-03] MEDS: LOSARTAN 50 MG TAB PO SCH (12:57)
[2020-11-03] MEDS: CITALOPRAM 20 MG TAB PO SCH (12:57)
[2020-11-03] MEDS: LANSOPRAZOLE 30 MG SOLUTAB FEEDTUBE SCH (12:57)
[2020-11-03] MEDS: ALPRAZolam 0.5 MG TAB PO PRN ×2 (14:45→22:11)
--- NOTE | 2020-11-03 15:20 | Gastroenterology Progress Note ---
Assessment and Plan - Patient Problems (1) Microcytic anemia Current Visit: Yes Status: Acute Plan to address problem: - Hx of gastric AVM treatment a few years ago; unclear if she ever rec'd a colonoscopy (was recommended; patient did not f/u in clinic). - Will continue PO meds/MVI/feeds for now, until pulmonary status improves. - Plan repeat EGD +/- colonoscopy in the near future pending clinical course; for now OK to continue mechanical soft diet. - Her respiratory compromise will preclude EGD/colon for at least 1-2 more days; may need to defer as an outpatient. Subjective Date of service: 11/03/20 Principal diagnosis: Symptomatic Anemia Interval history: The patient has transferred to the floor; Pulmonary note reviewed. She is so short of breath after going to bathroom, she has trouble completing sentences; however, she tolerated her meal today, and has no N/V/abdominal pain/gross GI bleeding. Objective - Constitutional Vitals: Temp Pulse Resp BP Pulse Ox 98.0 F 95 H 23 137/61 93 11/03/20 03:37 11/03/20 12:00 11/03/20 12:00 11/03/20 08:00 11/03/20 08:00 General appearance: mild distress - Respiratory Respiratory effort: labored Respiratory: bilateral: wheezing - Cardiovascular Rhythm: regular Heart Sounds: Present: S1 & S2 - Gastrointestinal General gastrointestinal: Present: soft, non-tender, non-distended - Labs CBC & Chem 7: 11/03/20 07:11 11/03/20 07:11 Labs: Laboratory Results - last 24 hr 11/02/20 11/02/20 11/03/20 17:34 23:30 05:11 WBC RBC Hgb Hct MCV MCH MCHC RDW Plt Count Add Manual Diff Total Counted Seg Neuts % (Manual) Lymphocytes % (Manual) Monocytes % (Manual) Nucleated RBC % Seg Neutrophils # Man Band Neutrophils # Lymphocytes # (Manual) Abs React Lymphs (Man) Monocytes # (Manual) Eosinophils # (Manual) Basophils # (Manual) Metamyelocytes # Myelocytes # Promyelocytes # Blast Cells # WBC Morphology Hypersegmented Neuts Hyposegmented Neuts Hypogranular Neuts Smudge Cells Toxic Granulation Toxic Vacuolation Dohle Bodies Pelger-Huet Anomaly Cindy Rods Platelet Estimate Clumped Platelets Plt Clumps, EDTA Large Platelets Giant Platelets Platelet Satelliting Plt Morphology Comment RBC Morphology Dimorphic RBCs Polychromasia Hypochromasia Poikilocytosis Anisocytosis Microcytosis Macrocytosis Spherocytes Pappenheimer Bodies Sickle Cells Target Cells Tear Drop Cells Ovalocytes Helmet Cells [place] Bodies [place] Rings Quique Cells Bite Cells Crenated Cell Elliptocytes Acanthocytes (Spur) Rouleaux Hemoglobin C Crystals Schistocytes Malaria parasites Magdiel Bodies Hem Pathologist Commnt Sodium Potassium Chloride Carbon Dioxide Anion Gap BUN Creatinine Estimated GFR BUN/Creatinine Ratio Glucose POC Glucose 118 H 155 H 124 H Calcium Total Bilirubin AST ALT Alkaline Phosphatase Total Protein Albumin Albumin/Globulin Ratio 11/03/20 11/03/20 11/03/20 07:11 07:11 07:11 WBC 8.8 RBC 4.23 Hgb 8.2 L Hct 27.8 L MCV 66 L MCH 19 L MCHC 30 RDW 39.7 H Plt Count 293 Add Manual Diff Complete Total Counted 100 Seg Neuts % (Manual) 87.0 H Lymphocytes % (Manual) 12.0 L Monocytes % (Manual) 1.0 Nucleated RBC % Not Reportable Seg Neutrophils # Man 7.7 Band Neutrophils # 0.0 Lymphocytes # (Manual) 1.1 L Abs React Lymphs (Man) 0.0 Monocytes # (Manual) 0.1 Eosinophils # (Manual) 0.0 Basophils # (Manual) 0.0 Metamyelocytes # 0.0 Myelocytes # 0.0 Promyelocytes # 0.0 Blast Cells # 0.0 WBC Morphology Not Reportable TNR Hypersegmented Neuts Not Reportable Hyposegmented Neuts Not Reportable Hypogranular Neuts Not Reportable Smudge Cells Not Reportable Toxic Granulation Not Reportable Toxic Vacuolation Not Reportable Dohle Bodies Not Reportable Pelger-Huet Anomaly Not Reportable Cindy Rods Not Reportable Platelet Estimate Consistent w auto Clumped Platelets Not Reportable Plt Clumps, EDTA Not Reportable Large Platelets Not Reportable Giant Platelets Not Reportable Platelet Satelliting Not Reportable Plt Morphology Comment Not Reportable RBC Morphology Not Reportable Dimorphic RBCs Not Reportable Polychromasia Few Hypochromasia 3+ Poikilocytosis Not Reportable Anisocytosis Not Reportable Microcytosis Not Reportable Macrocytosis Not Reportable Spherocytes Not Reportable Pappenheimer Bodies Not Reportable Sickle Cells Not Reportable Target Cells 1+ Tear Drop Cells 1+ Ovalocytes Not Reportable Helmet Cells Not Reportable [place] Bodies Not Reportable [place] Rings Not Reportable Quique Cells Not Reportable Bite Cells Not Reportable Crenated Cell Not Reportable Elliptocytes Few Acanthocytes (Spur) Not Reportable Rouleaux Not Reportable Hemoglobin C Crystals Not Reportable Schistocytes Not Reportable Malaria parasites Not Reportable Magdiel Bodies Not Reportable Hem Pathologist Commnt No Sodium 143 Potassium 4.0 Chloride 107.7 H Carbon Dioxide 31 H Anion Gap 8 BUN 20 H Creatinine 0.6 Estimated GFR > 60 BUN/Creatinine Ratio 33 Glucose 143 H POC Glucose Calcium 8.0 L Total Bilirubin 0.80 AST 19 ALT 41 Alkaline Phosphatase 87 Total Protein 5.8 L Albumin 3.2 L Albumin/Globulin Ratio 1.2 11/03/20 11:17 WBC RBC Hgb Hct MCV MCH MCHC RDW Plt Count Add Manual Diff Total Counted Seg Neuts % (Manual) Lymphocytes % (Manual) Monocytes % (Manual) Nucleated RBC % Seg Neutrophils # Man Band Neutrophils # Lymphocytes # (Manual) Abs React Lymphs (Man) Monocytes # (Manual) Eosinophils # (Manual) Basophils # (Manual) Metamyelocytes # Myelocytes # Promyelocytes # Blast Cells # WBC Morphology Hypersegmented Neuts Hyposegmented Neuts Hypogranular Neuts Smudge Cells Toxic Granulation Toxic Vacuolation Dohle Bodies Pelger-Huet Anomaly Cindy Rods Platelet Estimate Clumped Platelets Plt Clumps, EDTA Large Platelets Giant Platelets Platelet Satelliting Plt Morphology Comment RBC Morphology Dimorphic RBCs Polychromasia Hypochromasia Poikilocytosis Anisocytosis Microcytosis Macrocytosis Spherocytes Pappenheimer Bodies Sickle Cells Target Cells Tear Drop Cells Ovalocytes Helmet Cells [place] Bodies [place] Rings [place] Cells Bite Cells Crenated Cell Elliptocytes Acanthocytes (Spur) Rouleaux Hemoglobin C Crystals Schistocytes Malaria parasites Magdiel Bodies Hem Pathologist Commnt Sodium Potassium Chloride Carbon Dioxide Anion Gap BUN Creatinine Estimated GFR BUN/Creatinine Ratio Glucose POC Glucose 214 H Calcium Total Bilirubin AST ALT Alkaline Phosphatase Total Protein Albumin Albumin/Globulin Ratio
--- NOTE | 2020-11-03 18:37 | Progress Note ---
Assessment and Plan - Patient Problems (1) Acute respiratory failure with hypoxia Current Visit: Yes Status: Acute Plan to address problem: Patient was intubated yesterday Continue duo nebs Continue steroids Continue IV antibiotics Patient extubated BiPAP especially at nighttime and as needed (2) Symptomatic anemia Current Visit: Yes Status: Acute Plan to address problem: Patient being transfused Keep the hematocrit above 24 Hematology consult appreciated Hemoglobin at 9.5 and hematocrit at 31.5-yesterday Hemoglobin at 8.2 and 27.8 today (3) COPD with acute exacerbation Current Visit: Yes Status: Acute Plan to address problem: Continue duo nebs IV antibiotics and steroids (4) GI bleed Current Visit: No Status: Chronic Qualifiers: GI bleed type/associated pathology: unspecified gastrointestinal hemorrhage type Qualified Code(s): K92.2 - Gastrointestinal hemorrhage, unspecified Plan to address problem: Patient has history of gastric AVMs for which she did not go for follow-up Transfuse as necessary to keep the hemoglobin above 8 and hematocrit about 24 (5) Metabolic encephalopathy Current Visit: No Status: Acute Plan to address problem: Improved (6) HTN (hypertension) Current Visit: No Status: Chronic Qualifiers: Hypertension type: essential hypertension Qualified Code(s): I10 - Essential (primary) hypertension Plan to address problem: Continue antihypertensives (7) Hyperlipidemia Current Visit: Yes Status: Chronic Qualifiers: Hyperlipidemia type: mixed hyperlipidemia Qualified Code(s): E78.2 - Mixed hyperlipidemia Plan to address problem: Continue statins (8) Transfusion reaction Current Visit: Yes Status: Acute Qualifiers: Encounter type: initial encounter Qualified Code(s): T80.92XA - Unspecified transfusion reaction, initial encounter Plan to address problem: Hematology consult requested (9) Depression Current Visit: Yes Status: Chronic Qualifiers: Depression Type: dysthymia Qualified Code(s): F34.1 - Dysthymic disorder Plan to address problem: Patient on citalopram 40 mg daily (10) Generalized anxiety disorder Current Visit: Yes Status: Acute Plan to address problem: Patient on anxiolytics from home (11) DVT prophylaxis Current Visit: No Status: Acute Plan to address problem: On SCDs and GI prophylaxis because of the low hemoglobin and tendency to bleed Discharge planning issues Will discharge tomorrow if cleared by pulmonary and GI Subjective Date of service: 11/03/20 Principal diagnosis: DU with hemorrhage Interval history: 75-year-old female with a past medical history of COPD on 3 L of home oxygen , multiple sclerosis, hypertension, elevated cholesterol was brought to the to the hospital complaining of intermittent shortness of breath progressively worsening the last several weeks. Symptoms are especially worse with minimal exertion. Patient using bronchodilators intermittently with minimal and only temporary im provement. patient was admitted October 2017 with acute on chronic respiratory failure, severe anemia required several units of blood and had a GI work-up that included hiatal hernia, and small gastric ulceration, and a 5 mm AVM a duodenal bulb status post APC (argon plasma coagulation) treatment. Patient denied any rectal bleeding. In the emergency room patient hemoglobin is 3.1 hematocrit 13.2. Day #2 10/30/2020 Patient was transfused multiple units Patient went into respiratory distress and altered mental status and was intubated yesterday. Solderer consult requested by the previous team Patient intubated Possible transfusion reaction Low hemoglobin and hematocrit possibly secondary to AVMs by history Patient has history of gastric AVMs No melanotic stools Day #3 Still intubated Patient's hemoglobin is improved to around 8.0 Weaning in progress Day #4 Patient extubated Patient needs BiPAP especially at nighttime patient is noncompliant with it Patient is on home oxygen Day #5 Patient extubated Patient still short of breath Otherwise doing well hemoglobin is 9.5 and hematocrit is 31.5 No melanotic stools GI work-up when more stable Pulmonary and GI consults appreciated Day #6 Patient gets intermittently short of breath Patient on BiPAP intermittently and at nighttime Hemoglobin dropped to 8.2 and 27.8 Objective - Constitutional Vitals: Vital Signs - 12hr 11/03/20 11/03/20 11/03/20 07:01 07:59 08:00 Temperature Pulse Rate 84 93 H Pulse Rate [ 82 Anterior Bilateral Throughout] Respiratory 18 16 Rate Respiratory 22 Rate [Anterior Bilateral Throughout] Respiratory Rate [Back] Respiratory Rate [Bilateral Generalized Joint] Blood Pressure 136/58 137/61 O2 Sat by Pulse 100 93 Oximetry 11/03/20 11/03/20 11/03/20 08:30 08:41 08:50 Temperature Pulse Rate 95 H 96 H Pulse Rate [ Anterior Bilateral Throughout] Respiratory 26 H 22 Rate Respiratory Rate [Anterior Bilateral Throughout] Respiratory Rate [Back] Respiratory Rate [Bilateral Generalized Joint] Blood Pressure 143/65 143/65 143/65 O2 Sat by Pulse 92 90 94 Oximetry 11/03/20 11/03/20 11/03/20 12:00 12:22 16:37 Temperature 98.5 F 98.6 F Pulse Rate 95 H 89 84 Pulse Rate [ Anterior Bilateral Throughout] Respiratory 18 18 Rate Respiratory Rate [Anterior Bilateral Throughout] Respiratory 20 Rate [Back] Respiratory 23 Rate [Bilateral Generalized Joint] Blood Pressure 142/68 154/60 O2 Sat by Pulse 98 94 Oximetry General appearance: Present: no acute distress, well-nourished - EENT Eyes: PERRL, EOM intact ENT: hearing intact, clear oral mucosa Ears: bilateral: normal - Neck Neck: supple, normal ROM - Respiratory Respiratory effort: normal Respiratory: bilateral: CTA - Breasts Breasts: normal - Cardiovascular Heart rate: 88 Rhythm: regular Heart Sounds: Present: S1 & S2. Absent: gallop, rub Extremities: pulses intact, No edema, normal color, Full ROM - Gastrointestinal General gastrointestinal: Present: soft, non-tender, non-distended, normal bowel sounds - Genitourinary Female genitourinary: normal - Integumentary Integumentary: clear, warm, dry - Musculoskeletal Musculoskeletal: 1, strength equal bilaterally - Neurologic Neurologic: moves all extremities - Psychiatric Psychiatric: memory intact, appropriate mood/affect, intact judgment & insight - Labs CBC & Chem 7: 11/03/20 07:11 11/03/20 07:11 Labs: Abnormal lab results 11/02/20 11/03/20 11/03/20 Range/Units 23:30 05:11 07:11 Hgb 8.2 L (10.1-14.3) gm/dl Hct 27.8 L (30.3-42.9) % MCV 66 L (79-97) fl MCH 19 L (28-32) pg RDW 39.7 H (13.2-15.2) % Seg Neuts % (Manual) 87.0 H (40.0-70.0) % Lymphocytes % (Manual) 12.0 L (13.4-35.0) % Lymphocytes # (Manual) 1.1 L (1.2-5.4) K/mm3 Chloride (98-107) mmol/L Carbon Dioxide (22-30) mmol/L BUN (7-17) mg/dL Glucose (65-100) mg/dL POC Glucose 155 H 124 H (70-105) mg/dL Calcium (8.4-10.2) mg/dL Total Protein (6.3-8.2) g/dL Albumin (3.9-5) g/dL 11/03/20 11/03/20 Range/Units 07:11 11:17 Hgb (10.1-14.3) gm/dl Hct (30.3-42.9) % MCV (79-97) fl MCH (28-32) pg RDW (13.2-15.2) % Seg Neuts % (Manual) (40.0-70.0) % Lymphocytes % (Manual) (13.4-35.0) % Lymphocytes # (Manual) (1.2-5.4) K/mm3 Chloride 107.7 H (98-107) mmol/L Carbon Dioxide 31 H (22-30) mmol/L BUN 20 H (7-17) mg/dL Glucose 143 H (65-100) mg/dL POC Glucose 214 H (70-105) mg/dL Calcium 8.0 L (8.4-10.2) mg/dL Total Protein 5.8 L (6.3-8.2) g/dL Albumin 3.2 L (3.9-5) g/dL HEART Score - HEART Score Troponin: Troponin T < 0.010 ng/mL (0.00-0.029) 10/28/20 23:36
[2020-11-03] MEDS: PRAVASTATIN 40 MG TAB PO SCH (22:11)
[2020-11-04] MEDS: INSULIN LISPRO 100 UNIT/ML SUB-Q SCH ×4 (06:31→17:23)
[2020-11-04] MEDS: ARFORMOTEROL 15 MCG/2 ML NEBU IH SCH ×2 (07:47→20:11)
[2020-11-04] MEDS: BUDESONIDE 0.5 MG/2 ML NEBU IH SCH ×2 (07:47→20:11)
[2020-11-04 08:02] LABS: Alanine Aminotransferase 28 units/L (7-56); Albumin 3.2 g/dL (3.9-5); Blood Urea Nitrogen 12 mg/dL (7-17); Hemolysis Index 0
[2020-11-04 08:04] LABS: BUN/Creatinine Ratio 20
[2020-11-04 08:05] LABS: Mean Corpuscular HGB Conc 29 % (30-34); Platelet Count 256 K/mm3 (140-440); Red Blood Count 4.16 M/mm3 (3.65-5.03)
[2020-11-04 08:08] LABS: Hematocrit 28.1 % (30.3-42.9); Hemoglobin 8.2 gm/dl (10.1-14.3); Mean Corpuscular Volume 67 fl (79-97); Red Cell Distribution Width 39.5 % (13.2-15.2)
[2020-11-04 08:09] LABS: Basophils % (Auto) 0.1 % (0.0-1.8); Eosinophils # (Auto) 0.1 K/mm3 (0.0-0.4); Eosinophils % (Auto) 0.7 % (0.0-4.3); Monocytes # (Auto) 0.6 K/mm3 (0.0-0.8); Monocytes % (Auto) 6.9 % (0.0-7.3)
[2020-11-04] MEDS: PANTOPRAZOLE 40 MG TAB PO SCH (08:26)
[2020-11-04] MEDS: CITALOPRAM 20 MG TAB PO SCH (10:26)
[2020-11-04] MEDS: METOPROLOL TARTRATE 25 MG TAB PO SCH ×2 (10:26→21:32)
[2020-11-04] MEDS: LOSARTAN 50 MG TAB PO SCH (10:27)
[2020-11-04] MEDS: MULTIVITAMINS,THER W-MINERALS TAB PO SCH (10:28)
--- NOTE | 2020-11-04 11:57 | Gastroenterology Progress Note ---
Assessment and Plan - Patient Problems (1) Microcytic anemia Current Visit: Yes Status: Acute Plan to address problem: - Hx of gastric AVM treatment a few years ago; unclear if she ever rec'd a colonoscopy (was recommended; patient did not f/u in clinic). - Will continue PO meds/MVI/feeds for now, until pulmonary status improves. - Plan repeat EGD +/- colonoscopy in the near future pending clinical course; for now OK to continue mechanical soft diet. - Her respiratory compromise will preclude EGD/colon for at least 1-2 more days; may need to defer as an outpatient. - Since her hct is slowly improving, would consider a course of Rehab before pro ceeding to EGD/colon; she would be at increased risk of repeat intubation for invasive procedures/sedation at present. Subjective Date of service: 11/04/20 Principal diagnosis: Sympatomtic Anemia Interval history: The patient has had no GI bleeding overnight, and is tolerating her regular diet. She has no abdominal pain, but still c/o significant MENDOZA. Objective - Constitutional Vitals: Temp Pulse Resp BP Pulse Ox 97.4 F L 63 14 136/63 100 11/04/20 11:35 11/04/20 11:35 11/04/20 11:35 11/04/20 11:35 11/04/20 11:35 General appearance: mild distress - Respiratory Respiratory effort: labored Respiratory: bilateral: diminished (Still not able to speak in full sentences without pausing for breath.) - Cardiovascular Rhythm: regular Heart Sounds: Present: S1 & S2 - Gastrointestinal General gastrointestinal: Present: soft, non-tender, non-distended - Labs CBC & Chem 7: 11/04/20 06:26 11/04/20 06:26 Labs: Laboratory Results - last 24 hr 11/03/20 11/03/20 11/03/20 11:17 16:41 21:55 WBC RBC Hgb Hct MCV MCH MCHC RDW Plt Count Lymph % (Auto) [place] % (Auto) Eos % (Auto) Baso % (Auto) Lymph # (Auto) [place] # (Auto) Eos # (Auto) Baso # (Auto) Seg Neutrophils % Seg Neutrophils # Sodium Potassium Chloride Carbon Dioxide Anion Gap BUN Creatinine Estimated GFR BUN/Creatinine Ratio Glucose POC Glucose 214 H 131 H 119 H Calcium Total Bilirubin AST ALT Alkaline Phosphatase Total Protein Albumin Albumin/Globulin Ratio 02/01/21 02/01/21 02/01/21 06:26 06:26 06:29 WBC 8.8 RBC 4.16 Hgb 8.2 L Hct 28.1 L MCV 67 L MCH 20 L MCHC 29 L RDW 39.5 H Plt Count 256 Lymph % (Auto) Chemical Analyst [place] % (Auto) 6.9 Eos % (Auto) 0.7 Baso % (Auto) 0.1 Lymph # (Auto) Chemical Analyst [place] # (Auto) 0.6 Eos # (Auto) 0.1 Baso # (Auto) 0.0 Seg Neutrophils % 67.5 Seg Neutrophils # 5.9 Sodium 146 H Potassium 4.1 Chloride 111.5 H Carbon Dioxide 27 Anion Gap 12 BUN 12 Creatinine 0.6 Estimated GFR > 60 BUN/Creatinine Ratio 20 Glucose 146 H POC Glucose 145 H Calcium 8.0 L Total Bilirubin 0.60 AST 12 ALT 28 Alkaline Phosphatase 76 Total Protein 5.6 L Albumin 3.2 L Albumin/Globulin Ratio 1.3
[2020-11-04 12:02] LABS: Total Cells Counted 100
[2020-11-04 12:04] LABS: Hypochromasia 2+
[2020-11-04 12:05] LABS: Anisocytosis 3+; Platelet Estimate Consistent w Auto; Schistocytes 1+
[2020-11-04] MEDS: D5W/0.9% NACL 1,000 ML IV SCH (12:54)
[2020-11-04] MEDS ORDERED: ALBUTEROL 2.5 MG/3 ML NEBU IH PRN (13:00)
[2020-11-04] MEDS: PRAVASTATIN 40 MG TAB PO SCH (21:32)
--- NOTE | 2020-11-04 23:02 | Progress Note ---
Assessment and Plan - Patient Problems (1) Acute respiratory failure with hypoxia Current Visit: Yes Status: Acute Plan to address problem: Patient was intubated yesterday Continue duo nebs Continue steroids Continue IV antibiotics Patient extubated BiPAP especially at nighttime and as needed Symptomatically a lot better (2) Symptomatic anemia Current Visit: Yes Status: Acute Plan to address problem: Patient being transfused Keep the hematocrit above 24 Hematology consult appreciated Hemoglobin at 9.5 and hematocrit at 31.5-yesterday Hemoglobin at 8.2 and 27.8 today H&H stable EGD and colonoscopy as outpatient GI consult and follow-up appreciated and noted (3) COPD with acute exacerbation Current Visit: Yes Status: Acute Plan to address problem: Continue duo nebs IV antibiotics and steroids (4) GI bleed Current Visit: No Status: Chronic Qualifiers: GI bleed type/associated pathology: unspecified gastrointestinal hemorrhage type Qualified Code(s): K92.2 - Gastrointestinal hemorrhage, unspecified Plan to address problem: Patient has history of gastric AVMs for which she did not go for follow-up Transfuse as necessary to keep the hemoglobin above 8 and hematocrit about 24 (5) Metabolic encephalopathy Current Visit: No Status: Acute Plan to address problem: Improved (6) HTN (hypertension) Current Visit: No Status: Chronic Qualifiers: Hypertension type: essential hypertension Qualified Code(s): I10 - Essential (primary) hypertension Plan to address problem: Continue antihypertensives (7) Hyperlipidemia Current Visit: Yes Status: Chronic Qualifiers: Hyperlipidemia type: mixed hyperlipidemia Qualified Code(s): E78.2 - Mixed hyperlipidemia Plan to address problem: Continue statins (8) Transfusion reaction Current Visit: Yes Status: Acute Qualifiers: Encounter type: initial encounter Qualified Code(s): T80.92XA - Unspecified transfusion reaction, initial encounter Plan to address problem: Hematology consult requested (9) Depression Current Visit: Yes Status: Chronic Qualifiers: Depression Type: dysthymia Qualified Code(s): F34.1 - Dysthymic disorder Plan to address problem: Patient on citalopram 40 mg daily (10) Generalized anxiety disorder Current Visit: Yes Status: Acute Plan to address problem: Patient on anxiolytics from home (11) DVT prophylaxis Current Visit: No Status: Acute Plan to address problem: On SCDs and GI prophylaxis because of the low hemoglobin and tendency to bleed Discharge planning issues Will discharge tomorrow if cleared by pulmonary and GI Subjective Date of service: 11/04/20 Principal diagnosis: Sympatomtic Anemia Interval history: 75-year-old female with a past medical history of COPD on 3 L of home oxygen , multiple sclerosis, hypertension, elevated cholesterol was brought to the to the hospital complaining of intermittent shortness of breath progressively worsening the last several weeks. Symptoms are especially worse with minimal exertion. Patient using bronchodilators intermittently with minimal and only temporary improvement. patient was admitted October 2017 with acute on chronic respiratory failure, severe anemia required several units of blood and had a GI work-up that included hiatal hernia, and small gastric ulceration, and a 5 mm AVM a duodenal bulb status post APC (argon plasma coagulation) treatment. Patient denied any rectal bleeding. In the emergency room patient hemoglobin is 3.1 hematocrit 13.2. Day #2 10/30/2020 Patient was transfused multiple units Patient went into respiratory distress and altered mental status and was intubated yesterday. Vehicle Inspector consult requested by the previous team Patient intubated Possible transfusion reaction Low hemoglobin and hematocrit possibly secondary to AVMs by history Patient has history of gastric AVMs No melanotic stools Day #3 Still intubated Patient's hemoglobin is improved to around 8.0 Weaning in progress Day #4 Patient extubated Patient needs BiPAP especially at nighttime patient is noncompliant with it Patient is on home oxygen Day #5 Patient extubated Patient still short of breath Otherwise doing well hemoglobin is 9.5 and hematocrit is 31.5 No melanotic stools GI work-up when more stable Pulmonary and GI consults appreciated Day #6 Patient gets intermittently short of breath Patient on BiPAP intermittently and at nighttime Hemoglobin dropped to 8.2 and 27.8 Day #7 11/04/2020 Patient symptomatically a lot better Wants to go home tomorrow We will plan for discharge tomorrow Objective - Constitutional Vitals: Vital Signs - 12hr 11/04/20 11/04/20 11/04/20 11:35 17:42 20:00 Temperature 97.4 F L 98.2 F 99.8 F H Pulse Rate 63 81 83 Pulse Rate [ 83 Anterior Bilateral Throughout] Pulse Rate [ From Monitor] Respiratory 14 20 19 Rate Respiratory 16 Rate [Anterior Bilateral Throughout] Blood Pressure 154/72 105/39 Blood Pressure 136/63 [Right] O2 Sat by Pulse 100 100 100 Oximetry 11/04/20 11/04/20 21:32 22:00 Temperature Pulse Rate 83 Pulse Rate [ Anterior Bilateral Throughout] Pulse Rate [ 83 From Monitor] Respiratory 19 Rate Respiratory Rate [Anterior Bilateral Throughout] Blood Pressure 105/39 Blood Pressure [Right] O2 Sat by Pulse 99 Oximetry General appearance: Present: no acute distress, well-nourished - EENT Eyes: PERRL, EOM intact ENT: hearing intact, clear oral mucosa Ears: bilateral: normal - Neck Neck: supple, normal ROM - Respiratory Respiratory effort: normal Respiratory: bilateral: CTA - Breasts Breasts: normal - Cardiovascular Heart rate: 78 Rhythm: regular Heart Sounds: Present: S1 & S2. Absent: gallop, rub Extremities: pulses intact, No edema, normal color, Full ROM - Gastrointestinal General gastrointestinal: Present: soft, non-tender, non-distended, normal bowel sounds - Genitourinary Female genitourinary: normal - Integumentary Integumentary: clear, warm, dry - Musculoskeletal Musculoskeletal: 1, strength equal bilaterally - Neurologic Neurologic: moves all extremities - Psychiatric Psychiatric: memory intact, appropriate mood/affect, intact judgment & insight - Labs CBC & Chem 7: 11/04/20 06:26 11/04/20 06:26 Labs: Abnormal lab results 11/04/20 11/04/20 11/04/20 Range/Units 06:26 06:26 06:29 Hgb 8.2 L (10.1-14.3) gm/dl Hct 28.1 L (30.3-42.9) % MCV 67 L (79-97) fl MCH 20 L (28-32) pg MCHC 29 L (30-34) % RDW 39.5 H (13.2-15.2) % Seg Neuts % (Manual) 83.0 H (40.0-70.0) % Sodium 146 H (137-145) mmol/L Chloride 111.5 H (98-107) mmol/L Glucose 146 H (65-100) mg/dL POC Glucose 145 H (70-105) mg/dL Calcium 8.0 L (8.4-10.2) mg/dL Total Protein 5.6 L (6.3-8.2) g/dL Albumin 3.2 L (3.9-5) g/dL 11/04/20 11/04/20 Range/Units 12:16 16:43 Hgb (10.1-14.3) gm/dl Hct (30.3-42.9) % MCV (79-97) fl MCH (28-32) pg MCHC (30-34) % RDW (13.2-15.2) % Seg Neuts % (Manual) (40.0-70.0) % Sodium (137-145) mmol/L Chloride (98-107) mmol/L Glucose (65-100) mg/dL POC Glucose 188 H 160 H (70-105) mg/dL Calcium (8.4-10.2) mg/dL Total Protein (6.3-8.2) g/dL Albumin (3.9-5) g/dL HEART Score - HEART Score Troponin: Troponin T < 0.010 ng/mL (0.00-0.029) 10/28/20 23:36
[2020-11-05] MEDS: INSULIN LISPRO 100 UNIT/ML SUB-Q SCH ×4 (00:16→17:10)
[2020-11-05] MEDS: D5W/0.9% NACL 1,000 ML IV SCH (04:20)
[2020-11-05] MEDS: ARFORMOTEROL 15 MCG/2 ML NEBU IH SCH ×3 (07:40→22:34)
[2020-11-05] MEDS: BUDESONIDE 0.5 MG/2 ML NEBU IH SCH ×3 (07:40→22:35)
[2020-11-05 08:03] LABS: Red Blood Count 3.95 M/mm3 (3.65-5.03)
[2020-11-05 08:04] LABS: Hematocrit 25.6 % (30.3-42.9); Hemoglobin 7.6 gm/dl (10.1-14.3); Mean Corpuscular HGB Conc 30 % (30-34); Mean Corpuscular Volume 65 fl (79-97); Platelet Count 214 K/mm3 (140-440); Red Cell Distribution Width 39.6 % (13.2-15.2)
[2020-11-05] MEDS: PANTOPRAZOLE 40 MG TAB PO SCH (08:15)
[2020-11-05 08:17] LABS: Alanine Aminotransferase 21 units/L (7-56); Albumin 3.1 g/dL (3.9-5); Blood Urea Nitrogen 7 mg/dL (7-17); Hemolysis Index 3
[2020-11-05 08:18] LABS: BUN/Creatinine Ratio 14
[2020-11-05 08:50] LABS: Anisocytosis 3+; Hypochromasia 3+; Total Cells Counted 100
[2020-11-05 08:51] LABS: Ovalocytes Few; Platelet Estimate Consistent w Auto; Poikilocytosis 1+; Tear Drop Cells Few
[2020-11-05] MEDS: MULTIVITAMINS,THER W-MINERALS TAB PO SCH (09:35)
[2020-11-05] MEDS: LOSARTAN 50 MG TAB PO SCH (09:35)
[2020-11-05] MEDS: CITALOPRAM 20 MG TAB PO SCH (09:35)
[2020-11-05] MEDS: METOPROLOL TARTRATE 25 MG TAB PO SCH (09:35)
--- NOTE | 2020-11-05 15:27 | Gastroenterology Progress Note ---
Assessment and Plan - Patient Problems (1) Microcytic anemia Current Visit: Yes Status: Acute Plan to address problem: - Hx of gastric AVM treatment a few years ago; unclear if she ever rec'd a colonoscopy (was recommended; patient did not f/u in clinic). - Will continue PO meds/MVI/feeds for now, until pulmonary status improves. - Plan repeat EGD +/- colonoscopy in the near future pending clinical course; for now OK to continue mechanical soft diet. - Her respiratory compromise will preclude EGD/colon for at least 1-2 more days; may need to defer as an outpatient. - Discussed EGD/colonoscopy now with patient; she declines to pursue as an inpat ient; she would like to schedule from home. Given that she did not follow up in 2018, I am concerned about this, but she is adamant and not altered. Will sign off; patient to call our office from home, and we will arrange outpatient endoscopies. Subjective Date of service: 11/05/20 Principal diagnosis: Sympatomtic Anemia Interval history: The patient is less dyspneic today, and has no abdominal pain, N, V, or blood in the stools. She is tolerating a regular diet. Objective - Constitutional Vitals: Temp Pulse Resp BP Pulse Ox 98.6 F 91 H 18 145/71 98 11/05/20 09:10 11/05/20 10:00 11/05/20 10:00 11/05/20 09:35 11/05/20 10:00 General appearance: no acute distress - Respiratory Respiratory effort: labored (Improved from yesterday) Respiratory: bilateral: wheezing (Minimal) - Cardiovascular Rhythm: regular Heart Sounds: Present: S1 & S2 - Gastrointestinal General gastrointestinal: Present: soft, non-tender, non-distended - Labs CBC & Chem 7: 11/05/20 07:39 11/05/20 07:39 Labs: Laboratory Results - last 24 hr 11/04/20 11/04/20 11/05/20 16:43 23:26 06:04 WBC RBC Hgb Hct MCV MCH MCHC RDW Plt Count Add Manual Diff Total Counted Seg Neuts % (Manual) Lymphocytes % (Manual) Monocytes % (Manual) Nucleated RBC % Seg Neutrophils # Man Band Neutrophils # Lymphocytes # (Manual) Abs React Lymphs (Man) Monocytes # (Manual) Eosinophils # (Manual) Basophils # (Manual) Metamyelocytes # Myelocytes # Promyelocytes # Blast Cells # WBC Morphology Hypersegmented Neuts Hyposegmented Neuts Hypogranular Neuts Smudge Cells Toxic Granulation Toxic Vacuolation Dohle Bodies Pelger-Huet Anomaly Cindy Rods Platelet Estimate Clumped Platelets Plt Clumps, EDTA Large Platelets Giant Platelets Platelet Satelliting Plt Morphology Comment RBC Morphology Dimorphic RBCs Polychromasia Hypochromasia Poikilocytosis Anisocytosis Microcytosis Macrocytosis Spherocytes Pappenheimer Bodies Sickle Cells Target Cells Tear Drop Cells Ovalocytes Helmet Cells Izquierdo-[place] Bodies Powers Rings [place] Cells Bite Cells Crenated Cell Elliptocytes Acanthocytes (Spur) Rouleaux Hemoglobin C Crystals Schistocytes Malaria parasites Magdiel Bodies Hem Pathologist Commnt Sodium Potassium Chloride Carbon Dioxide Anion Gap BUN Creatinine Estimated GFR BUN/Creatinine Ratio Glucose POC Glucose 160 H 142 H 121 H Calcium Total Bilirubin AST ALT Alkaline Phosphatase Total Protein Albumin Albumin/Globulin Ratio 11/05/20 11/05/20 11/05/20 07:39 07:39 11:52 WBC 10.4 RBC 3.95 Hgb 7.6 L Hct 25.6 L MCV 65 L MCH 19 L MCHC 30 RDW 39.6 H Plt Count 214 Add Manual Diff Complete Total Counted 100 Seg Neuts % (Manual) 93.0 H Lymphocytes % (Manual) 6.0 L Monocytes % (Manual) 1.0 Nucleated RBC % Not Reportable Seg Neutrophils # Man 9.7 H Band Neutrophils # 0.0 Lymphocytes # (Manual) 0.6 L Abs React Lymphs (Man) 0.0 Monocytes # (Manual) 0.1 Eosinophils # (Manual) 0.0 Basophils # (Manual) 0.0 Metamyelocytes # 0.0 Myelocytes # 0.0 Promyelocytes # 0.0 Blast Cells # 0.0 WBC Morphology Not Reportable Hypersegmented Neuts Not Reportable Hyposegmented Neuts Not Reportable Hypogranular Neuts Not Reportable Smudge Cells Not Reportable Toxic Granulation Not Reportable Toxic Vacuolation Not Reportable Dohle Bodies Not Reportable Pelger-Huet Anomaly Not Reportable Cindy Rods Not Reportable Platelet Estimate Consistent w auto Clumped Platelets Not Reportable Plt Clumps, EDTA Not Reportable Large Platelets Not Reportable Giant Platelets Not Reportable Platelet Satelliting Not Reportable Plt Morphology Comment Not Reportable RBC Morphology Not Reportable Dimorphic RBCs Not Reportable Polychromasia Not Reportable Hypochromasia 3+ Poikilocytosis 1+ Anisocytosis 3+ Microcytosis 1+ Macrocytosis Not Reportable Spherocytes Not Reportable Pappenheimer Bodies Not Reportable Sickle Cells Not Reportable Target Cells Not Reportable Tear Drop Cells Few Ovalocytes Few Helmet Cells Not Reportable Izquierdo-[place] Bodies Not Reportable Powers Rings Not Reportable [place] Cells Not Reportable Bite Cells Not Reportable Crenated Cell Not Reportable Elliptocytes Few Acanthocytes (Spur) Not Reportable Rouleaux Not Reportable Hemoglobin C Crystals Not Reportable Schistocytes Not Reportable Malaria parasites Not Reportable Magdiel Bodies Not Reportable Hem Pathologist Commnt No Sodium 141 Potassium 3.7 Chloride 110.2 H Carbon Dioxide 26 Anion Gap 9 BUN 7 Creatinine 0.5 L Estimated GFR > 60 BUN/Creatinine Ratio 14 Glucose 151 H POC Glucose 175 H Calcium 8.0 L Total Bilirubin 0.50 AST 10 ALT 21 Alkaline Phosphatase 72 Total Protein 5.9 L Albumin 3.1 L Albumin/Globulin Ratio 1.1 11/05/20 12:09 WBC RBC Hgb Hct MCV MCH MCHC RDW Plt Count Add Manual Diff Total Counted Seg Neuts % (Manual) Lymphocytes % (Manual) Monocytes % (Manual) Nucleated RBC % Seg Neutrophils # Man Band Neutrophils # Lymphocytes # (Manual) Abs React Lymphs (Man) Monocytes # (Manual) Eosinophils # (Manual) Basophils # (Manual) Metamyelocytes # Myelocytes # Promyelocytes # Blast Cells # WBC Morphology Hypersegmented Neuts Hyposegmented Neuts Hypogranular Neuts Smudge Cells Toxic Granulation Toxic Vacuolation Dohle Bodies Pelger-Huet Anomaly Cindy Rods Platelet Estimate Clumped Platelets Plt Clumps, EDTA Large Platelets Giant Platelets Platelet Satelliting Plt Morphology Comment RBC Morphology Dimorphic RBCs Polychromasia Hypochromasia Poikilocytosis Anisocytosis Microcytosis Macrocytosis Spherocytes Pappenheimer Bodies Sickle Cells Target Cells Tear Drop Cells Ovalocytes Helmet Cells Izquierdo-[place] Bodies Powers Rings Quique Cells Bite Cells Crenated Cell Elliptocytes Acanthocytes (Spur) Rouleaux Hemoglobin C Crystals Schistocytes Malaria parasites Magdiel Bodies Hem Pathologist Commnt Sodium Potassium Chloride Carbon Dioxide Anion Gap BUN Creatinine Estimated GFR BUN/Creatinine Ratio Glucose POC Glucose 173 H Calcium Total Bilirubin AST ALT Alkaline Phosphatase Total Protein Albumin Albumin/Globulin Ratio
--- NOTE | 2020-11-05 17:55 | Discharge Summary ---
Providers - Providers Date of Admission: 10/29/20 01:12 Date of discharge: 11/05/20 Attending physician: TRUMAN LE 10/29/20 01:09 Consult to Physician [CONS] Urgent Comment: Consulting Provider: MIL ADAMES Physician Instructions: Reason For Exam: severe anemia, hx of duodenum avm/gastric ulcer 10/29/20 08:41 Consult to Physician [CONS] Routine Comment: Consulting Provider: MELCHOR ROBERT Physician Instructions: Reason For Exam: ACUTE RESPIRATORY FAILURE 10/29/20 09:03 Consult to Dietitian/Nutrition [CONS] Routine Physician Instructions: Reason For Exam: Reason for Consult: Evaluate nutritional intake 10/29/20 09:43 Consult to PICC Line RN [CONS] Routine Reason For Exam: critically ill Type Line:: PICC 10/29/20 15:31 Consult to Physician [CONS] Routine Comment: Consulting Provider: PHYLLIS LOCKHART Physician Instructions: Reason For Exam: possible transfusion reaction 10/31/20 02:58 Consult to Dietitian/Nutrition [CONS] Routine Physician Instructions: Reason For Exam: Reason for Consult: Write/Manage Tube Feeding 11/01/20 10:31 Consult to Dietitian/Nutrition [CONS] Routine Physician Instructions: Reason For Exam: Start TF after Feeding tube is plcd and confirmed Reason for Consult: Write/Manage Tube Feeding 11/04/20 09:55 Physical Therapy Evaluation and Treat [CONS] Routine Comment: Reason For Exam: debility Date of last referral: 11/04/20 11/04/20 09:56 Occupational Therapy Evaluate and Treat [CONS] Routine Comment: Reason For Exam: debillity 11/05/20 09:17 Occupational Therapy Evaluate and Treat [CONS] Routine Comment: Reason For Exam: debillity Primary care physician: FR[facility] SPEC Hospitalization Condition: Critical Hospital course: Subjective Date of service: 11/05/20 Principal diagnosis: Sympatomtic Anemia Interval history: 75-year-old female with a past medical history of COPD on 3 L of home oxygen , multiple sclerosis, hypertension, elevated cholesterol was brought to the to the hospital complaining of intermittent shortness of breath progressively worse suzy the last several weeks. Symptoms are especially worse with minimal exertion. Patient using bronchodilators intermittently with minimal and only temporary improvement. patient was admitted October 2017 with acute on chronic respiratory failure, severe anemia required several units of blood and had a GI work-up that included hiatal hernia, and small gastric ulceration, and a 5 mm AVM a duodenal bulb status post APC (argon plasma coagulation) treatment. Patient denied any rectal bleeding. In the emergency room patient hemoglobin is 3.1 hematocrit 13.2. Day #2 10/30/2020 Patient was transfused multiple units Patient went into respiratory distress and altered mental status and was intubated yesterday. Sales Audit Clerk consult requested by the previous team Patient intubated Possible transfusion reaction Low hemoglobin and hematocrit possibly secondary to AVMs by history Patient has history of gastric AVMs No melanotic stools Day #3 Still intubated Patient's hemoglobin is improved to around 8.0 Weaning in progress Day #4 Patient extubated Patient needs BiPAP especially at nighttime patient is noncompliant with it Patient is on home oxygen Day #5 Patient extubated Patient still short of breath Otherwise doing well hemoglobin is 9.5 and hematocrit is 31.5 No melanotic stools GI work-up when more stable Pulmonary and GI consults appreciated Day #6 Patient gets intermittently short of breath Patient on BiPAP intermittently and at nighttime Hemoglobin dropped to 8.2 and 27.8 Day #7 11/04/2020 Patient symptomatically a lot better Wants to go home tomorrow We will plan for discharge tomorrow Day #8 11/05/2020 Patient symptomatically better Patient being discharged today however Her hemoglobin is 7.6 with a slight drop Patient to follow-up with GI as outpatient Assessment and Plan - Patient Problems (1) Acute respiratory failure with hypoxia Current Visit: Yes Status: Acute Plan to address problem: Patient was intubated yesterday Continue duo nebs Continue steroids Continue IV antibiotics Patient extubated BiPAP especially at nighttime and as needed Symptomatically a lot better (2) Symptomatic anemia Current Visit: Yes Status: Acute Plan to address problem: Patient being transfused Keep the hematocrit above 24 Hematology consult appreciated Hemoglobin at 9.5 and hematocrit at 31.5-yesterday Hemoglobin at 8.2 and 27.8 dropped to 7.6 today H&H stable EGD and colonoscopy as outpatient GI consult and follow-up appreciated and noted (3) COPD with acute exacerbation Current Visit: Yes Status: Acute Plan to address problem: Continue duo nebs IV antibiotics and steroids (4) GI bleed Current Visit: No Status: Chronic Qualifiers: GI bleed type/associated pathology: unspecified gastrointestinal hemorrhage type Qualified Code(s): K92.2 - Gastrointestinal hemorrhage, unspecified Plan to address problem: Patient has history of gastric AVMs for which she did not go for follow-up Transfuse as necessary to keep the hemoglobin above 8 and hematocrit about 24 (5) Metabolic encephalopathy Current Visit: No Status: Acute Plan to address problem: Improved (6) HTN (hypertension) Current Visit: No Status: Chronic Qualifiers: Hypertension type: essential hypertension Qualified Code(s): I10 - Essential (primary) hypertension Plan to address problem: Continue antihypertensives (7) Hyperlipidemia Current Visit: Yes Status: Chronic Qualifiers: Hyperlipidemia type: mixed hyperlipidemia Qualified Code(s): E78.2 - Mixed hyperlipidemia Plan to address problem: Continue statins (8) Transfusion reaction Current Visit: Yes Status: Acute Qualifiers: Encounter type: initial encounter Qualified Code(s): T80.92XA - Unspecified transfusion reaction, initial encounter Plan to address problem: Hematology consult requested (9) Depression Current Visit: Yes Status: Chronic Qualifiers: Depression Type: dysthymia Qualified Code(s): F34.1 - Dysthymic disorder Plan to address problem: Patient on citalopram 40 mg daily (10) Generalized anxiety disorder Current Visit: Yes Status: Acute Plan to address problem: Patient on anxiolytics from home (11) DVT prophylaxis Current Visit: No Status: Acute Plan to address problem: On SCDs and GI prophylaxis because of the low hemoglobin and tendency to bleed Patient being discharged on Protonix and duo nebs and iron tablets Disposition: DC-01 TO HOME OR SELFCARE Time spent for discharge: 35 minutes - Discharge Diagnoses (1) Acute respiratory failure with hypoxia Status: Acute (2) COPD with acute exacerbation Status: Acute (3) Generalized anxiety disorder Status: Acute (4) Severe anemia Status: Acute (5) DVT prophylaxis Status: Acute Core Measure Documentation - Palliative Care Palliative Care/ Comfort Measures: Not Applicable - Core Measures Any of the following diagnoses?: none Exam - Constitutional Vitals: Temp Pulse Resp BP Pulse Ox 98.6 F 73 23 145/71 98 11/05/20 09:10 11/05/20 12:00 11/05/20 16:00 11/05/20 09:35 11/05/20 10:00 General appearance: Present: no acute distress, well-nourished - EENT Eyes: Present: PERRL ENT: hearing intact, clear oral mucosa - Neck Neck: Present: supple, normal ROM - Respiratory Respiratory effort: normal Respiratory: bilateral: CTA - Cardiovascular Rhythm: regular Heart Sounds: Present: S1 & S2. Absent: rub, click - Extremities Extremities: no ischemia (78), pulses intact, pulses symmetrical, No edema Peripheral Pulses: within normal limits - Abdominal General gastrointestinal: Present: soft, non-tender, non-distended, normal bowel sounds Female genitourinary: Present: normal - Integumentary Integumentary: Present: clear, warm, dry - Musculoskeletal Musculoskeletal: gait normal, strength equal bilaterally - Psychiatric Psychiatric: appropriate mood/affect, intact judgment & insight - Neurologic Neurologic: CNII-XII intact, moves all extremities - Allied Health Allied health notes reviewed: nursing, case management ([id number]) Plan Activity: no restrictions Diet: low fat, low cholesterol, low salt Follow up with: PRIMARY MD VIVIAN [Primary Care Provider] - 3-5 Days NONI GILL MD [Staff Physician] - 7 Days
[2020-11-05 21:28] VITALS: BP 137/51
[2020-11-06 00:10] LABS: Albumin 3.4 g/dL (3.8-4.8)
== END 2020-11-05 22:34 | disposition home health service (06) | DRG 208 ==
LOC: ED 20:28 → IMCU 10-29 01:12 → CC1 10-29 09:19 → IMCU 11-01 04:22 → 4A 11-03 09:30
PROVIDERS: ADMIT Hospitalist; ATTEND Internal Medicine
PROC: 5A09357 Assistance with Respiratory Ventilation, Less than 24 Consecutive Hours, Continuous Positive Airway Pressure (ICD-10-PCS; 2020-10-28)
PROC: 0BH17EZ Insertion of Endotracheal Airway into Trachea, Via Natural or Artificial Opening (ICD-10-PCS; principal; 2020-10-29)
PROC: 5A1945Z Respiratory Ventilation, 24-96 Consecutive Hours (ICD-10-PCS; 2020-10-29)
PROC: 30233N1 Transfusion of Nonautologous Red Blood Cells into Peripheral Vein, Percutaneous Approach (ICD-10-PCS; 2020-10-29)
PROC: 4A033R1 Measurement of Arterial Saturation, Peripheral, Percutaneous Approach (ICD-10-PCS; 2020-10-29)
PROC: 02HV33Z Insertion of Infusion Device into Superior Vena Cava, Percutaneous Approach (ICD-10-PCS; 2020-10-29)
PROC: B548ZZA Ultrasonography of Superior Vena Cava, Guidance (ICD-10-PCS; 2020-10-29)
PROC: 5A09357 Assistance with Respiratory Ventilation, Less than 24 Consecutive Hours, Continuous Positive Airway Pressure (ICD-10-PCS; 2020-10-29)
PROC: 5A09357 Assistance with Respiratory Ventilation, Less than 24 Consecutive Hours, Continuous Positive Airway Pressure (ICD-10-PCS; 2020-11-01)
PROC: 5A09357 Assistance with Respiratory Ventilation, Less than 24 Consecutive Hours, Continuous Positive Airway Pressure (ICD-10-PCS; 2020-11-02)
PROC: 5A09357 Assistance with Respiratory Ventilation, Less than 24 Consecutive Hours, Continuous Positive Airway Pressure (ICD-10-PCS; 2020-11-03)
PROC: 5A09357 Assistance with Respiratory Ventilation, Less than 24 Consecutive Hours, Continuous Positive Airway Pressure (ICD-10-PCS; 2020-11-04)
PROC: 5A09357 Assistance with Respiratory Ventilation, Less than 24 Consecutive Hours, Continuous Positive Airway Pressure (ICD-10-PCS; 2020-11-05)
DX: J96.21 Acute and chronic respiratory failure with hypoxia (principal); G93.41 Metabolic encephalopathy; J44.1 Chronic obstructive pulmonary disease with (acute) exacerbation; K92.2 Gastrointestinal hemorrhage, unspecified; J96.01 Acute respiratory failure with hypoxia; G43.909 Migraine, unspecified, not intractable, without status migrainosus; D50.9 Iron deficiency anemia, unspecified; F34.1 Dysthymic disorder; F41.1 Generalized anxiety disorder; D64.9 Anemia, unspecified; Z99.81 Dependence on supplemental oxygen; Z86.73 Personal history of transient ischemic attack (TIA), and cerebral infarction without residual deficits; I25.2 Old myocardial infarction
CPT/HCPCS: 36415; 36600; 70450; 71045; 71275; 74018; 80048; 80053; 82271; 82803; 82805; 82962; 83615; 83880; 84165; 84484; 85007; 85014; 85018; 85025; 85027; 85045; 85379; 85610; 85730; 86850; 86880; 86900; 86901; 86920; 93005; 94002; 94003; 94640; 94660; 94760; 96361; 96365; 96366; 96367; 96375; 96376; G0378; A9270-GY; C9113; J0330; J1200; J1815; J1940; J2060; J2704; J2930; J3010; J7040; J7042; P9016; Q9967